=== PATIENT | male | born 1935 | race Caucasian/White ===

== ENCOUNTER 2017-10-25 20:35 | Observation (INO) | payer MEDICARE, BC, OTHER ==
--- OUTSIDE RECORDS SUMMARY | 2017-10-25 20:53 | XMS REPORT ---
:1935 External Reference #:[id number] Author Organization [facility] Address [address] [place] [address] [place] [address] Phone [phone] Care Team Providers Name Role Phone Perez Santoyo MD Primary Care Physician Unavailable Payers Type Date Identification Numbers Payment Provider Subscriber Medicare Primary Policy Number: [id number] Medicare Perez Mcarthur PayID: [id number] [address] [place] [address] Medigap Part B Policy Number: [id number] [facility] Perez Pidlaureano PayID: [id number] [address] [place] [address] Problems Date Description Provider Status Onset: 06/09/2016 Spinal stenosis of lumbar region Yoshi Casillas M.D. Active Onset: 01/14/2013 Chronic ischemic heart disease Wu Cummings M.D. 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 [facility] Cigarette Use quit 33 years ago smoke pipe in the past, quit in 1960s ETOH Use Drinks 2 Alcoholic Beverages 1-2 Per Week Recreational Drug Use Denies Drug Use Smoking Patient is a former smoker quit smoking 20 years ago Daily Caffeine Consumes on average 2 cups of regular coffee per day Daily Caffeine Consumes on average 2 cups of hot tea per day Exercise Type/Frequency Exercises regularly Exercise Type/Frequency Walks daily Exercise Type/Frequency PT For legs 09/28/17 Allergies, Adverse Reactions, Alerts Date Description Reaction Status Severity Comments 05/16/2015 Statins active Muscle pain/ Fatigue 01/12/2013 NKDA inactive Medications Medication Date Status Form Strength Qnty SIG Indications Ordering Provider Nitrostat 01/14 Active Tablets 0.4mg 25tab as needed Sub s for chest D. Brand, pain M.D. Lisinopril Active Tablets 20mg 90tab 1 po bid Silcoff s MD Perez Tamsulosin HCL Active Capsules 0.4mg 30cap 1 po qd Silcoff, s MD Perez Aspirin Active Tablets 325mg 1 po qd Silco MD Perez Colace Active Capsules 100mg 60cap as needed Unknown / s Finasteride Active Tablets 5mg 90tab 1 po qd / s Lyrica Active Capsules 25mg 1 by mouth Unknown / in Am and 2 at hs Bacitracin Zinc Active Ointment 500Unit/G apply once Unknown /0000 M a day to affected area Tramadol HCL Active Tablets 50mg 1-2 Unknown /0000 tablets every 6 hours as needed Acetaminophen-Codei Active Tablets 300-30mg one tablet Unknown ne #3 0000 as needed orally for pain every 4-6 hours Hydrochlorothiazide Active Capsules 12.5mg 1 Thursday Unknown /0000 and Vitamin D3 Active Tablets 2000Unit 1 by mouth Unknown / every day Cortosone 10 Active Cream Apply Unknown topically one time per day and as needed Metaxalone 05/16 Hx Tablets 800mg 14tab take 1 s tablet 3 D. Brand, - times a M.D. 07/07 day needed Hydrochlorothiazide Hx Tablets 25mg 90tab 1/2 tablet Silco s Ace Davalos MD 07/07 Miralax Hx prn - 04/20 Vitamin D3 Hx Tablets 1000 daily Unknown - 04/20 Cinnamon Hx Capsules 500mg 1 po qd - 04/26 Medications Administered in Office Medication Date Status Form Strength Qnty SIG Indications Ordering Provider Technetium TC Administered Injection Wu Cummings M.D. Tetrofosmin, Per Unit Dose Up To 40 Millicuries Vital Signs Date Vital Result Comment 09/28/2017 Height 72 inches 6'0" Weight 207.00 lb Heart Rate 64 /min BP Systolic Sitting 102 mmHg Rue large cuff BP Diastolic Sitting 62 mmHg Rue large cuff Respiratory Rate 14 /min O2 % BldC Oximetry 95 % On Ra BMI (Body Mass Index) 28.1 kg/m2 Neck Circumference in inches 17 05/01/2017 Height 72 inches 6'0" Weight 205.00 lb No shoes Heart Rate 60 /min BP Systolic Sitting 126 mmHg Rue lrg cuff BP Diastolic Sitting 80 mmHg Rue lrg cuff BP Systolic Standing 130 mmHg Rue lrg cuff BP Diastolic Standing 78 mmHg Rue lrg cuff Respiratory Rate 16 /min BMI (Body Mass Index) 27.8 kg/m2 Ejection Fraction 40% 04/08/2005-echo 08/04/2016 Height 74 inches 6'2" Weight 218.00 lb Heart Rate 78 /min BP Systolic Sitting 110 mmHg BP Diastolic Sitting 70 mmHg Pain Level 1 BMI (Body Mass Index) 28.0 kg/m2 07/07/2016 Height 74 inches 6'2" Weight 218.00 lb Heart Rate 62 /min BP Systolic Sitting 138 mmHg BP Diastolic Sitting 76 mmHg Pain Level 3 BMI (Body Mass Index) 28.0 kg/m2 06/09/2016 Height 74 inches 6'2" Weight 218.00 lb Heart Rate 62 /min BP Systolic 104 mmHg BP Diastolic 60 mmHg Pain Level 2 BMI (Body Mass Index) 28.0 kg/m2 05/09/2016 Height 74 inches 6'2" Weight 216.00 lb with shoes Heart Rate 66 /min BP Systolic Sitting 108 mmHg Ra reg cuff BP Diastolic Sitting 60 mmHg Ra reg cuff BP Systolic Standing 102 mmHg Ra reg cuff BP Diastolic Standing 68 mmHg Ra reg cuff BMI (Body Mass Index) 27.7 kg/m2 Ejection Fraction 35% - 40% echo 04/08/05 05/16/2015 Height 74 inches 6'2" Weight 212.00 lb no shoes Heart Rate 64 /min BP Systolic Sitting 102 mmHg Ra reg cuff BP Diastolic Sitting 62 mmHg Ra reg cuff BP Systolic Standing 108 mmHg Ra reg cuff BP Diastolic Standing 68 mmHg Ra reg cuff BMI (Body Mass Index) 27.2 kg/m2 Ejection Fraction 40% 04/08/05 04/27/2014 Height 74 inches 6'2" Weight 217.00 lb with shoes Heart Rate 64 /min BP Systolic Sitting 140 mmHg LA, reg cuff BP Diastolic Sitting 86 mmHg LA, reg cuff BP Systolic Standing 132 mmHg LA BP Diastolic Standing 84 mmHg LA Respiratory Rate 16 /min BMI (Body Mass Index) 27.9 kg/m2 01/14/2013 Height 74 inches 6'2" Weight 211.00 lb Heart Rate 76 /min BP Systolic Sitting 94 mmHg Ra reg cuff BP Diastolic Sitting 62 mmHg Ra reg cuff BP Systolic Standing 100 mmHg Ra BP Diastolic Standing 68 mmHg Ra Respiratory Rate 18 /min BMI (Body Mass Index) 27.1 kg/m2 Results Description No Information Procedures Date CPT Code Description Status 05/01/2017 35156 EKG Tracing & Interpretation Completed 05/09/2016 21251 EKG Tracing & Interpretation Completed 05/16/2015 79205 EKG Tracing & Interpretation Completed 04/27/2014 06195 EKG Tracing & Interpretation Completed 01/14/2013 04614 EKG Tracing & Interpretation Completed 12/15/2012 00911 Stress Test Completed 12/15/2012 93049 Myocardial Perfusion Imaging Tomographic (Spect) Completed Multiple Studies Encounters Type Date Location Provider CPT E/M Dx Office Visit 09/28/2017 [facility] [place] Emilia [place]én[place] [address] G47.9 10:00a [facility] R53.83 Office Visit 05/01/2017 11:30a [facility] Gurpreet Cummings 74187 I25.810 [facility] Leon R94.31 Office Visit 08/04/2016 9:45a [facility] Ambar Ortega PA-C 20026 M48.06 Of [facility] Office Visit 07/07/2016 10:40a [facility] Yoshi Casillas 09597 M48.06 Of [facility] Office Visit 06/09/2016 10:15a [facility] Yoshi Casillas 35029 M48.06 Of [facility] Office Visit 05/09/2016 11:15a [facility] Gurpreet Cummings 37524 I25.810 [facility] Leon R94.31 Office Visit 05/16/2015 10:30a [facility] Madison Cummings, 58389 I25.810 [facility] Leon R06.02 R94.31 Office Visit 04/27/2014 10:30a [facility] Wu JayePepe Cummings, 21037 414.02 Brianne Leon 414.9 Office Visit 01/14/2013 10:30a [facility] Wu JayePepe Cummings, 59757 414.02 Brianne Leon 414.9 Plan of Care Future Appointment(s):11/18/2017 2:30 pm - Melodie Chu DNP, RN, JOURNEYMAN MACHINIST-BC at [facility]09/28/2017 - Emilia Méndez MDG47.9 Sleep disorder, unspecifiedNew Orders:Home Sleep TestingFollow up:3 weeks [id number] Other fatigue
--- OUTSIDE RECORDS SUMMARY | 2017-10-25 20:53 | XMS REPORT ---
:1935 External Reference #:[id number] Author Organization [employer] [facility] Address [address] [place] [address] Phone [phone] Care Team Providers Name Role Phone Perez Santoyo M.D. Primary Care Physician Unavailable Payers Type Date Identification Numbers Payment Provider Subscriber Medicare Primary Effective: Policy Number: Medicare - NGS Perez Mcarthur 2002 [id number] PayID: [id number] [address] [place] [address] Commercial Policy Number: [id number] [place] Plan Perez Mcarthur PayID: [id number] [address] [place] [address] Problems Date Description Provider Status Onset: Dyspnea on exertion Active Onset: Large prostate Active Onset: Type 2 diabetes mellitus Active Note: 2001 Onset: Essential hypertension Active Onset: Tremor Active Note: familial Onset: Arthritis Active Onset: Diabetic neuropathy Active Onset: Foot-drop Active Note: left Onset: 10/12/2015 Nuclear senile cataract Sonya James O.D. 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 Active Onset: Concussion injury of brain Active Note: 09/2017 Onset: 10/13/2017 Presbyopia Riaz Man M.D. Active Onset: 10/13/2017 Hypermetropia Riaz Man M.D. Active Onset: 10/13/2017 Vitreous degeneration Riaz Man M.D. Active Family History Date Family Member(s) Problem(s) Comments Father No Current Problems Mother Glaucoma Mother Diabetes First Son Diabetes First Brother Glaucoma First Brother Diabetes Grandfather Cataract Grandmother Cataract Uncle Diabetes Social History Type Date Description Comments Marital Status Legal Status: Occupation [employer] Work Status Retired ETOH Use Occasionally consumes alcohol Recreational Drug Use Denies Drug Use Smoking Patient is a former smoker Daily Caffeine Consumes on average 2 cups of regular coffee per day Allergies, Adverse Reactions, Alerts Date Description Reaction Status Severity Comments 10/02/2015 NKDA active Medications Medication Date Status Form Strength Qnty SIG Indications Ordering Provider Lyrica / Active Capsules 25mg Silcoff, 0000 Carolyn Todd Lisinopril / Active Tablets 20mg Silcoff, 0000 Carolyn Todd Tamsulosin HCL / Active Capsules 0.4mg Hussieni, 0000 Evan Leon Finasteride / Active Tablets 5mg Unknown 0000 Hydrochlorothiazide / Active Tablets 12.5mg 2 times Silcoff, 0000 a week Carolyn Todd Aspirin / Active Tablets 325mg Unknown [address] Ibuprofen / Active Tablets 200mg as Unknown 0000 needed Tramadol HCL ER / Active Caps ER 100mg Unknown 0000 24HR Nitrostat / Active Tablets 0.4mg Unknown 0000 Sub Tylenol With Codeine / Active Tablets 300-30mg Unknown #3 0000 Colace 2-In-1 / Active Tablets 8.6-50mg Unknown 0000 Vitamin D / Hx Capsules 400Unit Unknown (Cholecalciferol) 0000 - 2017 Results Description No Information Procedures Date CPT Code Description Status 12/04/2016 39911 Scanning Computerized Ophthalmic Diagnostic Imag Completed Posterior Seg On 12/04/2016 32260 Visual Field Exam Extended Completed 12/04/2016 04516 Est Patient Comprehensive Exam Completed 05/29/2016 30354 Est Patient Intermediate Exam Completed 03/20/2016 17717 Visual Field Exam Extended Completed 03/20/2016 16509 Est Patient Intermediate Exam Completed 11/15/2015 00555 Visual Field Exam Extended Completed 11/15/2015 35395 Est Patient Intermediate Exam Completed 10/12/2015 05012 Scanning Computerized Ophthalmic Diagnostic Imag Completed Posterior Seg On 10/12/2015 16354 Determination Of Refractive State Completed 10/12/2015 64350 Est Patient Comprehensive Exam Completed 10/12/2015 77871 Pachymetry Completed 03/02/2014 28108 Est Patient Comprehensive Exam Completed 12/09/2011 75734 Est Patient Comprehensive Exam Completed Plan of Care 10/13/2017 - Riaz Man M.D.H25.13 Age-related nuclear cataract, bilateralComments:Smoking can increase the risk of developing or worsening any eye related disease, as well as affect your overall health. If you are a smoker , we strongly recommend that you quit.If you are not a smoker, we strongly recommend that you do not start. You have been diagnosed with cataracts. They are limiting your vision, and I am unable to improve you with new glasses. Our next step is to schedule Cataract surgery and all necessary appointments, which Wilmer will do for you. We recommend that you write down any questions you may have and bring them to your preoperative appointment so that Dr. Man can answer them for you. If you have any questions or concerns, you can reach Magy Reagan at .Follow up:For preop exam before surgery.H43.813 Vitreous degeneration, bilateralComments:You have a Posterior Vitreous Detachment. If you have any changes in your floaters or flashing lights, please contact this office.H52.03 Hypermetropia, bilateralComments:You have Hyperopia, or far sightedness.H52.4 PresbyopiaComments:You have presbyopia. This is when the lens in your eye loses the ability to change focus, and happens as we age. A pair of reading glasses will help you see up close.H40.023 Open angle with borderline findings, high risk, bilateralComments:Dr. Man is considering you a Glaucoma suspect. This means the eye pressure in your eyes are higher than average, your optic nerve appearance is suspicious, or you have strong risk factors; but you have not been diagnosed with Glaucoma. Follow up appointments are very important to keep.
[2017-10-25 21:14] LABS: ABS Basophils 0 10^3/ul (0-0.2); ABS Eosinophils 0 10^3/ul (0-0.6); ABS Lymphocytes 0.5 10^3/ul (1.0-4.8); ABS Monocytes 0.4 10^3/ul (0-0.8); ABS Nucleated RBC 0 10^3/ul; Eosinophil % 0.3 % (0-6); Hematocrit 39 % (42-52); Hemoglobin 13.6 g/dl (14.0-18.0); Lymphocyte % 13.5 % (25-47); Mean Corpuscular HGB Conc 35 g/dl (31-36); Mean Corpuscular Hemoglobin 32 pg (27-31); Mean Corpuscular Volume 92 fL (80-94); Mean Platelet Volume 7.9 um3 (7.4-10.4); Nucleated Red Blood Cells % 0; Platelet Count 111 10^3/ul (150-450); Red Blood Count 4.22 10^6/ul (4.00-5.40); Red Cell Distribution Width 13 % (10.5-15)
[2017-10-25] MEDS ORDERED: Acetaminophen TAB* 325 MG PO ONE (21:14)
[2017-10-25] MEDS ORDERED: NS 0.9% 1000 ML* 2,000 ML IV ONE (21:14)
[2017-10-25] MEDS ORDERED: Vancomycin(*) 1,000 MG in NS 0.9% 250 ML* 250 ML IVPB ONE (21:15)
[2017-10-25] MEDS ORDERED: Piperacillin/Tazobac ADVAN(*) 3.375 GM in NS 0.9% 100 ML* 100 ML IVPB ONE ×2 (21:15→21:43)
[2017-10-25 21:22] LABS: INR 1.1 (0.77-1.02)
[2017-10-25 21:30] LABS: EGFR Non-African American 84.4 (>60)
[2017-10-25] MEDS ORDERED: Azithromycin IV(*) 500 MG in NS 0.9% 250 ML* 250 ML IVPB SCH (22:00)
--- NOTE | 2017-10-25 22:36 | ED ---
Scott Mace Tariq, scribed for Barbara Awad MD on 10/25/17 at 2114 . HPI Cardiac - HPI Summary HPI Summary: A 82 y/o male presents to ED c/o two episodes of high blood pressure. According to the patient, he had high blood pressure this morning and after dinner. Additional symptoms that started yesterday include headache, ear ache, blurry vision, SOB, chills and diarrhea. Patient denies cough. He noted that he does have issues with urination, but it has not been present for past week. As per , she found a red spot on the left back/side. She believes it is a tick. Patient noted that it does not itch or painful, however it is tender. Additionally, she stated he has been febrile. [place] Sent by PCP for further evaluation. - History of Current Complaint Chief Complaint: EDFever Stated Complaint: HIGH BP Time Seen by Provider: 10/25/17 20:58 Hx Obtained From: Patient Onset/Duration: Started Hours Ago - High Blood Pressure, 2 episodes. Timing: Intermittent Current Severity: None Pain Intensity: 0 Pain Scale Used: 0-10 Numeric Character: Other: - High Blood Pressure Aggravating Factor(s): Nothing Alleviating Factor(s): Nothing Associated Signs and Symptoms: Positive: Vision Changes, Headaches, Shortness of Breath, Fever, Chills, Other: - Vision changes, red spot on back/side, diarrhea.. Negative: Cough - Allergy/Home Medications Allergies/Adverse Reactions: Allergies Allergy/AdvReac Type Severity Reaction Status Date / Time No Known Allergies Allergy Verified 10/12/17 10:16 PMH/Surg Hx/FS Hx/Imm Hx Endocrine/Hematology History: Reports: Hx Diabetes - CONTROL WITH DIET Cardiovascular History: Reports: Hx Coronary Artery Disease, Hx Hypertension, Hx Syncope Denies: Hx Pacemaker/ICD History: Reports: Other Problems/Disorders - neurogenic bladder Denies: Hx Renal Disease Musculoskeletal History: Reports: Hx Back Problems - spinal stenosis Sensory History: Denies: Hx Hearing Aid Psychiatric History: Denies: Hx Panic Disorder - Surgical History Surgery Procedure, Year, and Place: CARDIAC HEART STENTS 2004. TRIPLE BYPASS 2006 Infectious Disease History: No Infectious Disease History: Denies: Traveled Outside the [place] in Last 30 Days - Family History Known Family History: Positive: Diabetes, Other - [place] - Social History Alcohol Use: None Alcohol Amount: 1-2 drinks per week Substance Use Type: Reports: None Smoking Status (MU): Former Smoker Review of Systems Positive: Fever, Chills Positive: Blurred Vision Positive: Ear Ache Positive: Other - POSITIVE: Two episodes of high blood pressure. Positive: Shortness Of Breath. Negative: Cough Positive: Diarrhea Positive: Headache All Other Systems Reviewed And Are Negative: Yes Physical Exam - Summary Physical Exam Summary: VITAL SIGNS: Reviewed. GENERAL: Patient is a well-developed and nourished MALE who is lying comfortable in the stretcher. Patient is not in any acute respiratory distress. HEAD AND FACE: No signs of trauma. No ecchymosis, hematomas or skull depressions. No sinus tenderness. EYES: PERRLA, EOMI x 2, No injected conjunctiva, no nystagmus. EARS: Hearing grossly intact. Ear canals and tympanic membranes are within normal limits. MOUTH: Oropharynx within normal limits. NECK: Supple, trachea is midline, no adenopathy, no JVD, no carotid bruit, no c- spine tenderness, neck with full ROM. CHEST: Symmetric, no tenderness at palpation LUNGS: Clear to auscultation bilaterally. No wheezing or crackles. CVS: Regular rate and rhythm, S1 and S2 present, no murmurs or gallops appreciated. ABDOMEN: Soft, non-tender. No signs of distention. No rebound no guarding, and no masses palpated. Bowel sounds are normal. EXTREMITIES: FROM in all major joints, no edema, no cyanosis or clubbing. NEURO: Alert and oriented x 3. No acute neurological deficits. Speech is normal and follows commands. SKIN: Red oval, 3 inch by 2 inch, on left lateral in between chest and abdomen. Macular rash. Triage Information Reviewed: Yes Vital Signs On Initial Exam: Initial Vitals Temp Pulse Resp BP Pulse Ox 101.1 F 85 20 161/78 94 10/25/17 20:37 10/25/17 20:37 10/25/17 20:37 10/25/17 20:37 10/25/17 20:37 Vital Signs Reviewed: Yes Diagnostics - Vital Signs Vital Signs Temp Pulse Resp BP Pulse Ox 10/25/17 20:37 101.1 F 85 20 161/78 94 - Laboratory Result Diagrams: 10/25/17 21:04 10/25/17 21:04 Lab Statement: Any lab studies that have been ordered have been reviewed, and results considered in the medical decision making process. - Radiology CXR Radiology Interpretation Completed By: ED Physician - Right lower lobe infiltrate. Pending official report. - EKG 2116 Cardiac Rate: NL - 76 BPM EKG Rhythm: Sinus Rhythm ST Segment: Non-Specific EKG Interpretation: Normal axis. Normal interval. Q-wave in V1 and V2. Re-Evaluation - Re-Evaluation First Eval Re-Evaluation Time: 21:37 Comment: DISCUSSED DISCHARGE WITH PATIENT. Disposition - Course Course Of Treatment: A 82 y/o male presents to ED c/o two episodes of high blood pressure. According to the patient, he had high blood pressure this morning and after dinner. Additional symptoms that started yesterday include headache, ear ache, blurry vision, SOB, chills and diarrhea. Patient denies cough. As per , she found a red spot on the left back/side. She believes it is a tick. Patient noted that it does not itch or painful, however it is tender. Additionally, she stated he has been febrile. A CXR reveal right lower lobe infiltrate. An EKG revealed a rate of 76 BPM, normal rhythm, non-specific ST, normal axis. Normal interval. Q-wave in V1 and V2. In the ED course, patient was given IV fluids, Tylenol, Vancomycin and Tazobactum. We discussed patient care with Dr. Hinojosa and he accepts patient for admission. Patient will be admitted with a diagnosis of pneumonia. Patient is agreeable with this plan. - Diagnoses Provider Diagnoses: Pneumonia - Physician Notifications Discussed Care Of Patient With: Josue Hinojosa Time Discussed With Above Provider: 21:45 Instructed by Provider To: Other - DR. HINOJOSA ACCEPTS PATIENT FOR ADMISSION. Discharge - Sign-Out/Discharge Documenting (check all that apply): Discharge/Admit/Transfer - ADMIT - Discharge Plan Condition: Stable Disposition: ADMITTED TO [facility] Referrals: Perez Santoyo MD [Primary Care Provider] - The documentation as recorded by the Scott freire Tariq accurately reflects the service I personally performed and the decisions made by me, Barbara Awad MD.
[2017-10-25] MEDS ORDERED: Azithromycin IV* 500 MG ADVAN VIAL/BAG IVPB ONE (23:45)
--- NOTE | 2017-10-25 23:48 | HP ---
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 He denies chest pain, SOB, cough, congestion , or other issues. Today he continued to have these symptoms and his significant other had him check his blood pressure finding it to be 190/80s. This caused them concern enough to present for evaluation which found a RLL infiltrate on CXR, but negative SIRS screen. 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 CAD/IA/stents/3vCABG pericardial effusion HTN essential tremor Ambulatory Orders Finasteride TAB* [Proscar TAB*] 5 mg PO DAILY 09/15/12 Lisinopril TAB* [Prinivil TAB*] 10 mg PO BID 09/15/12 Nitroglycerin [Nitrostat] 0.4 mg SL SEE INSTRUCTIONS PRN 09/15/12 Tamsulosin CAP* [Flomax CAP*] 0.4 mg PO DAILY 09/15/12 Aspirin TAB* [Aspirin 325 MG TAB*] 325 mg PO DAILY 06/17/16 Pregabalin CAP(*) [Lyrica CAP(*)] 1 cap PO .SI IN AM,2 AT HS 06/17/16 hydroCHLOROthiazide [Microzide-] 25 mg PO MOTH 10/13/16 Hydrochlorothiazide TAB* [Hydrodiuril TAB*] 25 mg PO WEEKLY 10/25/17 Allergies No Known Allergies Allergy (Verified 10/12/17 10:16) PSurgHx cardiac stents 3vCABG TURP tonsillectomy planned OU cataract extraction 11/2017 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, minimal alcohol, no recreational drugs; , lives with a female significant other; full code status FamHx: reviewed & non-contributory ROS: as above, otherwise reviewed and all were negative vitals: Vital Signs Temp 38.4 C 10/25/17 20:37 Pulse 64 10/26/17 00:24 Resp 17 10/26/17 00:24 BP 118/67 10/26/17 00:24 Pulse Ox 95 10/26/17 00:24 Intake & Output 10/25/17 10/25/17 10/26/17 11:59 23:59 11:59 Weight 95.254 kg Constitutional: NAD, normally developed, well-nourished elderly white male HEENM: atraumatic; sclera/conjunctiva: anicteric/clear; hearing: clinically intact; oropharynx: clear, mucosa moist Neck: soft tissue: no nuchal rigidity; thyroid: normal Pulmonary: diminished bilaterally w/o crackle or wheeze, fair aeration, no accessory muscle use CV: RR/RR, normal S1S2, no carotid bruit, no jugular venous distention, 2+ B DP/ PT, no edema Abdominal: soft, non-distended, non-tender, no rebound/guarding/rigidity, normoactive bowel sounds, no hepatosplenomegaly or masses, no costovertebral angle tenderness Musculoskeletal: general: grossly intact, non-tender Integumental: L flank non-blanching angry ~12x8cm erythematous patch w/o targetoid appearance Psychiatric orientation: AA&O to PPS affect: calm mood: pleasant eye contact: good content: reliable responses: timely insight: fair to good Testing: Lab Results 10/25/17 10/25/17 10/25/17 Range/Units 21:04 21:04 21:04 WBC 4.0 (3.5-10.8) 10^3/ul RBC 4.22 (4.00-5.40) 10^6/ul Hgb 13.6 L (14.0-18.0) g/dl Hct 39 L (42-52) % MCV 92 (80-94) fL MCH 32 H (27-31) pg MCHC 35 (31-36) g/dl RDW 13 (10.5-15) % Plt Count 111 L (150-450) 10^3/ul MPV 7.9 (7.4-10.4) um3 Neut % (Auto) 74.3 (38-83) % Lymph % (Auto) 13.5 L (25-47) % Mccracken % (Auto) 11.1 H (0-7) % Eos % (Auto) 0.3 (0-6) % Baso % (Auto) 0.8 (0-2) % Absolute Neuts (auto) 3.0 (1.5-7.7) 10^3/ul Absolute Lymphs (auto) 0.5 L (1.0-4.8) 10^3/ul Absolute Monos (auto) 0.4 (0-0.8) 10^3/ul Absolute Eos (auto) 0 (0-0.6) 10^3/ul Absolute Basos (auto) 0 (0-0.2) 10^3/ul Absolute Nucleated RBC 0 10^3/ul Nucleated RBC % 0 INR (Anticoag Therapy) 1.10 H (0.77-1.02) APTT 23.5 L (26.0-36.3) seconds Sodium 131 L (135-145) mmol/L Potassium 4.3 (3.5-5.0) mmol/L Chloride 99 L (101-111) mmol/L Carbon Dioxide 26 (22-32) mmol/L Anion Gap 6 (2-11) mmol/L BUN 21 (6-24) mg/dL Creatinine 0.87 (0.67-1.17) mg/dL Est GFR ( Amer) 102.2 (>60) Est GFR (Non-Af Amer) 84.4 (>60) BUN/Creatinine Ratio 24.1 H (8-20) Glucose 123 H (70-100) mg/dL Lactic Acid (0.5-2.0) mmol/L Calcium 8.3 L (8.6-10.3) mg/dL Total Bilirubin 0.80 (0.2-1.0) mg/dL AST 51 H (13-39) U/L ALT 42 (7-52) U/L Alkaline Phosphatase 97 (34-104) U/L Troponin I 0.02 (<0.04) ng/mL C-Reactive Protein 81.20 H (<8.01) mg/L B-Natriuretic Peptide ( - 100) pg/mL Total Protein 6.5 (6.4-8.9) g/dL Albumin 3.6 (3.2-5.2) g/dL Globulin 2.9 (2-4) g/dL Albumin/Globulin Ratio 1.2 (1-3) 10/25/17 10/25/17 Range/Units 21:04 21:04 WBC (3.5-10.8) 10^3/ul RBC (4.00-5.40) 10^6/ul Hgb (14.0-18.0) g/dl Hct (42-52) % MCV (80-94) fL MCH (27-31) pg MCHC (31-36) g/dl RDW (10.5-15) % Plt Count (150-450) 10^3/ul MPV (7.4-10.4) um3 Neut % (Auto) (38-83) % Lymph % (Auto) (25-47) % Mccracken % (Auto) (0-7) % Eos % (Auto) (0-6) % Baso % (Auto) (0-2) % Absolute Neuts (auto) (1.5-7.7) 10^3/ul Absolute Lymphs (auto) (1.0-4.8) 10^3/ul Absolute Monos (auto) (0-0.8) 10^3/ul Absolute Eos (auto) (0-0.6) 10^3/ul Absolute Basos (auto) (0-0.2) 10^3/ul Absolute Nucleated RBC 10^3/ul Nucleated RBC % INR (Anticoag Therapy) (0.77-1.02) APTT (26.0-36.3) seconds Sodium (135-145) mmol/L Potassium (3.5-5.0) mmol/L Chloride (101-111) mmol/L Carbon Dioxide (22-32) mmol/L Anion Gap (2-11) mmol/L BUN (6-24) mg/dL Creatinine (0.67-1.17) mg/dL Est GFR ( Amer) (>60) Est GFR (Non-Af Amer) (>60) BUN/Creatinine Ratio (8-20) Glucose (70-100) mg/dL Lactic Acid 0.6 (0.5-2.0) mmol/L Calcium (8.6-10.3) mg/dL Total Bilirubin (0.2-1.0) mg/dL AST (13-39) U/L ALT (7-52) U/L Alkaline Phosphatase (34-104) U/L Troponin I (<0.04) ng/mL C-Reactive Protein (<8.01) mg/L B-Natriuretic Peptide 103 H ( - 100) pg/mL Total Protein (6.4-8.9) g/dL Albumin (3.2-5.2) g/dL Globulin (2-4) g/dL Albumin/Globulin Ratio (1-3) ECG, personally reviewed: NSR rate 76, no ischemia CXR, personally reviewed: RLL infiltrate Impression: 82M presenting with RLL CAP DIAGNOSIS & PLAN Primary RLL CAP : given IV vancomycin, azithromycin, & piperacillin/tazobactam in ED, will continue with azithromycin & ceftriaxone : IVFs : blood & sputum CXs : supplemental oxygen : supportive care L flank non-blanching macular skin lesion : uncertain cause : consider dermatopathology consult in AM : tick-borne labs sent from ED : doxycycline 100mg PO BID Secondary 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
[2017-10-26] MEDS ORDERED: Albuterol 2.5 MG/3 ML NEB.SOL* (0.083%) INH PRN (00:22)
[2017-10-26] MEDS ORDERED: Melatonin 3 MG TAB PO PRN (00:22)
[2017-10-26] MEDS ORDERED: Acetaminophen TAB* 325 MG PO PRN (00:22)
[2017-10-26] MEDS: NS 0.9% 1000 ML* 1,000 ML IV SCH (01:33)
[2017-10-26] MEDS: Pregabalin CAP(*) 50 MG PO SCH ×2 (02:06→20:41)
[2017-10-26 03:08] LABS: Urine Appearance Clear; Urine Blood 1+ (Negative); Urine Color Straw; Urine Ketones Negative (Negative); Urine Protein Negative (Negative); Urine Red Blood Cell Trace(0-2/hpf) (Absent); Urine Specific Gravity 1.003 (1.010-1.030); Urine Urobilinogen Negative (Negative); Urine White Blood Cell Absent (Absent)
[2017-10-26] MEDS: cefTRIAXone VIAL(*) 1,000 MG in NS 0.9% 50 ML* 50 ML IVPB SCH (05:25)
[2017-10-26] MEDS: Heparin VIAL(*) 5000 UNITS/ML VIAL (FIVE THOUSAND) SUBCUT SCH ×3 (05:27→21:46)
[2017-10-26] MEDS: Omeprazole CAP* 20 MG PO SCH (05:29)
[2017-10-26 06:06] LABS: EGFR Non-African American 87.9 (>60)
[2017-10-26 06:10] LABS: Hematocrit 43 % (42-52); Hemoglobin 14.5 g/dl (14.0-18.0); Mean Corpuscular HGB Conc 34 g/dl (31-36); Mean Corpuscular Hemoglobin 32 pg (27-31); Mean Corpuscular Volume 94 fL (80-94); Red Blood Count 4.56 10^6/ul (4.00-5.40); Red Cell Distribution Width 13 % (10.5-15)
--- NOTE | 2017-10-26 07:32 | RAD ---
INDICATION: Fever. COMPARISON: Comparison is made with a prior chest x-ray study from April 01, 2005. TECHNIQUE: A portable view of the chest was obtained. FINDINGS: The patient appears to be status post coronary artery bypass surgery. Note is made of multiple sternal sutures and mediastinal clips. The heart is within normal limits in size. There is a small infiltrate at the right lung base and trace bilateral pleural effusions. IMPRESSION: SMALL RIGHT BASILAR INFILTRATE AND TRACE BILATERAL PLEURAL EFFUSIONS. NO DISCREPANCY
[2017-10-26] MEDS: Insulin LISPRO* 1 UNITS UNIT SUBCUT SCH ×4 (07:44→20:56)
[2017-10-26] MEDS: Tamsulosin CAP* 0.4 MG PO SCH (07:45)
[2017-10-26] MEDS: Docusate CAP* 100 MG PO SCH ×2 (07:45→20:41)
[2017-10-26] MEDS: Lisinopril TAB* 10 MG PO SCH ×2 (07:45→20:41)
[2017-10-26] MEDS: DOXYcycline CAP(*) 100 MG PO SCH ×2 (07:45→20:41)
[2017-10-26] MEDS: Aspirin TAB* 325 MG PO SCH (07:45)
[2017-10-26] MEDS: Finasteride TAB* 5 MG PO SCH (07:46)
[2017-10-26] MEDS: Pregabalin CAP(*) 25 MG PO SCH (07:46)
--- NOTE | 2017-10-26 16:26 | PN ---
Subjective Date of Service: 10/26/17 Interval History: . Interviewed and examined patient at bedside; Discussed case with Dr. Hinojosa; Reviewed previous notes and radiology results; Family History: Unchanged from Admission Social History: Unchanged from Admission Past Medical History: Unchanged from Admission Objective Active Medications: . Acetaminophen (Tylenol Tab*) 650 mg PO Q6H PRN PRN Reason: FEVER/PAIN Albuterol (Ventolin 2.5 Mg/3 Ml Neb.Mariangel*) 2.5 mg INH Q2H PRN PRN Reason: SOB/WHEEZING Aspirin (Aspirin Tab*) 325 mg PO DAILY [facility] Last Admin: 10/26/17 07:45 Dose: 325 mg Docusate Sodium (Colace Cap*) 200 mg PO BID [facility] Last Admin: 10/26/17 07:45 Dose: 200 mg Doxycycline Hyclate (Vibramycin Cap(*)) 100 mg PO BID [facility] Last Admin: 10/26/17 07:45 Dose: 100 mg Finasteride (Proscar Tab*) 5 mg PO DAILY [facility] Last Admin: 10/26/17 07:46 Dose: 5 mg Heparin Sodium (Porcine) (Heparin Vial(*)) 5,000 units SUBCUT Q8HR [facility] Last Admin: 10/26/17 14:17 Dose: 5,000 units Sodium Chloride (Ns 0.9% 1000 Ml*) 1,000 mls @ 50 mls/hr IV PER RATE [facility] Last Admin: 10/26/17 01:33 Dose: 50 mls/hr Ceftriaxone Sodium 1,000 mg/ (Sodium Chloride) 50 mls @ 200 mls/hr IVPB Q24H [facility] Last Admin: 10/26/17 05:25 Dose: 200 mls/hr Azithromycin 500 mg/ Sodium (Chloride) 250 mls @ 250 mls/hr IVPB Q24H [facility] Insulin Human Lispro (Humalog*) 0 units SUBCUT ACHS [facility]; Protocol Last Admin: 10/26/17 12:34 Dose: Not Given Lisinopril (Prinivil Tab*) 10 mg PO BID [facility] Last Admin: 10/26/17 07:45 Dose: 10 mg Melatonin (Melatonin) 3 mg PO BEDTIME PRN; Protocol PRN Reason: Sleep Omeprazole (Prilosec Cap*) 20 mg PO DAILY@0600 [facility] Last Admin: 10/26/17 05:29 Dose: 20 mg Pregabalin (Lyrica Cap(*)) 25 mg PO QAM [facility] Last Admin: 10/26/17 07:46 Dose: 25 mg Pregabalin (Lyrica Cap(*)) 50 mg PO BEDTIME [facility] Last Admin: 10/26/17 02:06 Dose: 50 mg Tamsulosin HCl (Flomax Cap*) 0.4 mg PO DAILY [facility] Last Admin: 10/26/17 07:45 Dose: 0.4 mg . Vital Signs - 8 hr 10/26/17 10/26/17 10/26/17 10:43 12:16 15:16 Temperature 98.2 F 97.4 F Pulse Rate 74 66 Respiratory 25 24 18 Rate Blood Pressure 138/64 123/59 (mmHg) O2 Sat by Pulse 95 96 Oximetry Oxygen Devices in Use Now: None Appearance: elderly and frail. Short of breath with exertion in bed. Eyes: No Scleral Icterus Ears/Nose/Mouth/Throat: NL Teeth, Lips, Gums Neck: NL Appearance and Movements; NL JVP Respiratory: - - R Base rhonchi and poor air movement Cardiovascular: NL Sounds; No Murmurs; No JVD Abdominal: NL Sounds; No Tenderness; No Distention Lymphatic: No Cervical Adenopathy Extremities: No Edema Skin: No Rash or Ulcers Lines/Tubes/Other Access: Clean, Dry and Intact Peripheral IV Nutrition: Taking PO's Result Diagrams: 10/26/17 05:25 10/26/17 05:25 Assess/Plan/Problems-Billing . 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 CAD/CT/stents/3vCABG pericardial effusion HTN Essential tremor - Patient Problems (1) Streptococcus pneumoniae pneumonia Current Visit: Yes Status: Acute Priority: High Code(s): J13 - PNEUMONIA DUE TO STREPTOCOCCUS PNEUMONIAE Comment: - Ceftriaxone 1 g IV daily - Azithromycin 500 mg IV daily - Pulmonary toilet - Albuterol nebs Q4 prn shortness of breath - Supplemental oxygen - Incentive spirometry (2) S/P CABG x 3 Current Visit: Yes Status: Chronic Priority: High Code(s): Z95.1 - PRESENCE OF AORTOCORONARY BYPASS GRAFT (3) CAD (coronary artery disease) Current Visit: Yes Status: Chronic Priority: High Code(s): I25.10 - ATHSCL HEART DISEASE OF [place] CORONARY ARTERY W/O ANG PCTRS (4) Essential tremor Current Visit: Yes Status: Chronic Priority: High Code(s): G25.0 - ESSENTIAL TREMOR (5) Foot drop Current Visit: Yes Status: Chronic Priority: High Code(s): M21.379 - FOOT DROP, UNSPECIFIED FOOT Status and Disposition: . inpatient
[2017-10-26] MEDS ORDERED: Azithromycin IV(*) 500 MG in NS 0.9% 250 ML* 250 ML IVPB SCH (22:00)
[2017-10-27] MEDS: NS 0.9% 1000 ML* 1,000 ML IV SCH (02:48)
[2017-10-27] MEDS: cefTRIAXone VIAL(*) 1,000 MG in NS 0.9% 50 ML* 50 ML IVPB SCH (05:53)
[2017-10-27] MEDS: Heparin VIAL(*) 5000 UNITS/ML VIAL (FIVE THOUSAND) SUBCUT SCH (05:55)
[2017-10-27] MEDS: Omeprazole CAP* 20 MG PO SCH (05:55)
[2017-10-27] MEDS: Insulin LISPRO* 1 UNITS UNIT SUBCUT SCH ×2 (08:02→12:06)
[2017-10-27] MEDS: Pregabalin CAP(*) 25 MG PO SCH (08:10)
[2017-10-27] MEDS: DOXYcycline CAP(*) 100 MG PO SCH (08:10)
[2017-10-27] MEDS: Lisinopril TAB* 10 MG PO SCH (08:10)
[2017-10-27] MEDS: Finasteride TAB* 5 MG PO SCH (08:10)
[2017-10-27] MEDS: Tamsulosin CAP* 0.4 MG PO SCH (08:10)
[2017-10-27] MEDS: Aspirin TAB* 325 MG PO SCH (08:10)
[2017-10-27] MEDS: Docusate CAP* 100 MG PO SCH (08:11)
[2017-10-27 13:42] VITALS: BP 126/68
--- NOTE | 2017-10-28 06:17 | PN ---
Hospitalist Progress Note Date of Service: 10/27/17 . HOSPITALIST DISCHARGE NOTE: See dc instructions and summary by me. Patient stable for dc dc instructions reviewed with the patient at the bedside. DC patient home today.
--- NOTE | 2017-10-28 13:24 | DS ---
CC: Dr. Santoyo * DISCHARGE SUMMARY: DATE OF ADMISSION: 10/26/17 DATE OF DISCHARGE: 10/27/17 STATUS: Observation. PRIMARY CARE PROVIDER: Dr. Perez Santoyo, [facility]. PRINCIPAL DISCHARGE DIAGNOSIS: Community-acquired pneumonia - likely Streptococcal pneumoniae. SECONDARY DIAGNOSES: 1. Longstanding type 2 diabetes with neuropathy and left foot drop. 2. Coronary artery disease, status post myocardial infarction and stents and CABG x3 vessels. 3. Pericardial effusion. 4. Hypertension. 5. Essential tremor. DISCHARGE MEDICATIONS REGIMEN: New: 1. Ceftin 500 mg by mouth twice daily x 7 days. 2. Azithromycin 500 mg by mouth daily x 5 days. Continue: 1. Finasteride/Proscar 5 mg by mouth daily. 2. Lisinopril 10 mg by mouth twice daily. 3. Nitroglycerin 0.4 mg sublingually q.5 minutes up to 3 times p.r.n. chest pain. 4. Tamsulosin/Flomax 0.4 mg by mouth daily. 5. Aspirin 325 mg by mouth daily. 6. Pregabalin 25 mg in the morning and 50 mg at night. 7. Hydrochlorothiazide 25 mg by mouth weekly. HISTORY OF PRESENT ILLNESS AND HOSPITAL COURSE: Please see the H and P by Dr. Josue Hinojosa on 10/26/17. In brief, Mr. Mcarthur is a pleasant 82-year-old gentleman who had fevers and chills prior to admission for one day with blurred vision and facial flushing. The patient denied other issues, but developed a cough. The patient was somewhat hypertensive and came to the emergency room for evaluation. He was found to have right lower lobe infiltrate. He did not have a leukocytosis. His blood chemistries were significant for dehydration pattern with an elevated BUN to creatinine ratio and hyponatremia and hypochloremia and his CRP was elevated at 81.2. The patient was placed on IV ceftriaxone and IV azithromycin for presumed community-acquired pneumonia. Statistically, the most likely bacterial organism would be Strep pneumoniae. The patient received intravenous fluids overnight. Blood and sputum cultures were obtained, but no growth was observed. The patient was given supplemental oxygen and other supportive care. The patient did well overnight and expressed interest in going home on 10/27/17. The patient also has a left flank nonblanching macular lesion, tick-borne labs were sent from the emergency room and were negative for Lyme disease as well as Ehrlichia and anaplasma. The patient's urine studies were normal. The admitting physician recommended perhaps Dermatopathology consults who started the patient on doxycycline 100 mg by mouth twice daily. I will discuss this with Dr. Santoyo, but a Dermatopathology consult was not available during the hospitalization and the patient wished to go home rather than wait. With respect to the patient's diabetes, there were no significant abnormal blood sugars and his hemoglobin A1c was well controlled at 5.8 (considering likelihood of bacterial soft tissue infection). The patient's other medical problems were not active during the hospitalization. We will follow up with Dr. Santoyo later this week and further decisions will be based on his clinical course. At this point, he is certainly stable for the outpatient setting. He is ambulating independently in the hospital. Not requiring supplemental oxygen and feeling subjectively better than on admission. TIME SPENT: Total time taken to discharge Mr. Mcarthur was 40 minutes greater than half of that time spent going over the discharge instructions [id number] with the patient. CONDITION AT DISCHARGE: Stable. [id number]/[facility] #: [id number] [facility]
== END 2017-10-27 14:30 | disposition home or self-care (01) ==
LOC: ED 20:35 → MED 10-26 00:20 → INTOOBSV 10-26 00:20 → MED 10-26 20:09
PROVIDERS: ADMIT Hospitalist; ATTEND Internal Medicine
DX: J18.8 Other pneumonia, unspecified organism (principal); E13.40 Other specified diabetes mellitus with diabetic neuropathy, unspecified; M21.372 Foot drop, left foot; I25.10 Atherosclerotic heart disease of native coronary artery without angina pectoris; Z95.1 Presence of aortocoronary bypass graft; I25.2 Old myocardial infarction; I31.3 Pericardial effusion (noninflammatory); I10 Essential (primary) hypertension; G25.0 Essential tremor; Z79.82 Long term (current) use of aspirin; Z79.899 Other long term (current) drug therapy; Z95.5 Presence of coronary angioplasty implant and graft; Z87.891 Personal history of nicotine dependence
CPT/HCPCS: 36415; 71045; 80048; 80053; 81003; 81015; 83036; 83605; 83880; 84484; 85025; 85027; 85610; 85730; 86140; 86618; 86666; 87040; 87798; 87899; 93005; 96365; 96366; 99283; A9270-GY; G0378; J0456; J0696; J1644; J2543

== ENCOUNTER 2017-11-01 18:37 | Emergency (ER) | payer MEDICARE, BC, OTHER ==
--- NOTE | 2017-11-01 19:21 | ED ---
Neurological HPI - HPI Summary HPI Summary: A 82 y/o male JANEL presents to ED c/o extreme dizziness and being winded. According to the patient, he walked out to his mailbox which was about 100 ft. Once at the mailbox, he could not get back home because he felt dizzy and winded. Pt denies any CP or SOB, however has a mildly productive cough. He noted that he was admitted to the [facility] ED for 2 nights where he was diagnosed with pneumonia. He was started on antibiotics. He was already going to come in toay because of the cough, as it has gotten to the point where there is pain in his groin during cough. Oxygen given by EMS helped alleviate symptoms, however is not of oxygen at home. PMHx of HBP, prostate issues, triple bypass heart surgery ([facility]) and stents. SHx of previous smoker (quit 30 years ago). 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 No known allergies. - History of Current Complaint Chief Complaint: EDShortnessOfBreath Stated Complaint: DIFF BREATHING Time Seen by Provider: 11/01/17 18:55 Hx Obtained From: Patient Onset/Duration: Sudden Onset, Started hours ago, Still Present Timing: Constant Pain Intensity: 0 Pain Scale Used: 0-10 Numeric Character: Dizzy, Other: - Winded Aggravating: Nothing Alleviating: Other - Oxygen Associated Signs and Symptoms: Negative: Chest Pain, Shortness of Breath - Additional Pertinent History Primary Care Physician: [id number] - Allergy/Home Medications Allergies/Adverse Reactions: Allergies Allergy/AdvReac Type Severity Reaction Status Date / Time No Known Allergies Allergy Verified 10/12/17 10:16 PMH/Surg Hx/FS Hx/Imm Hx Endocrine/Hematology History: Reports: Hx Diabetes - CONTROL WITH DIET Cardiovascular History: Reports: Hx Coronary Artery Disease, Hx Hypertension, Hx Syncope, Other Cardiovascular Problems/Disorders - Triple Bypass Denies: Hx Pacemaker/ICD Respiratory History: Reports: Hx Pneumonia History: Reports: Hx Benign Prostatic Hyperplasia, Other Problems/ Disorders - neurogenic bladder Denies: Hx Renal Disease Musculoskeletal History: Reports: Hx Arthritis, Hx Back Problems - spinal stenosis Sensory History: Reports: Hx Cataracts, Hx Contacts or Glasses Denies: Hx Hearing Aid Opthamlomology History: Reports: Hx Cataracts, Hx Contacts or Glasses Psychiatric History: Reports: Hx Community Mental Health Tx - after 's Denies: Hx Panic Disorder - Surgical History Surgery Procedure, Year, and Place: CARDIAC HEART STENTS 2004. TRIPLE BYPASS 2005. Tonsillectomy Infectious Disease History: No Infectious Disease History: Denies: Traveled Outside the [place] in Last 30 Days - Family History Known Family History: Positive: Diabetes, Other - [place] - Social History Alcohol Use: Rare Alcohol Amount: 1-2 drinks per week Substance Use Type: Reports: None Smoking Status (MU): Former Smoker Review of Systems Negative: Fever Negative: Chest Pain Positive: Cough. Negative: Shortness Of Breath Neurological: Other - POSITIVE: Dizziness and winded All Other Systems Reviewed And Are Negative: Yes Physical Exam - Summary Physical Exam Summary: GENERAL: Patient is a well developed and nourished male who is lying comfortable in the stretcher. Patient is not in any acute respiratory distress. HEAD AND FACE: Normocephalic EYES: PERRLA, EOMI x 2. EARS: Hearing grossly intact. MOUTH: Oropharynx within normal limits. NECK: Supple, trachea is midline, no adenopathy, no JVD, no carotid bruit. CHEST: Symmetric, no tenderness at palpation LUNGS: Clear to auscultation bilaterally. No wheezing or crackles. CVS: Regular rate and rhythm, S1 and S2 present, no murmurs or gallops appreciated. ABDOMEN: Soft, non-tender. Bowel sounds are normal. No abdominal abnormal pulsations. EXTREMITIES: Full ROM in all major joints, no edema, no cyanosis or clubbing. NEURO: Alert and oriented x 3. No acute neurological deficits. Speech is normal and follows commands. SKIN: Dry and warm Triage Information Reviewed: Yes Vital Signs On Initial Exam: Initial Vitals Temp Pulse Resp BP Pulse Ox 98.3 F 78 22 176/110 97 11/01/17 18:42 11/01/17 18:42 11/01/17 18:42 11/01/17 18:42 11/01/17 18:42 Vital Signs Reviewed: Yes Diagnostics - Vital Signs Vital Signs Temp Pulse Resp BP Pulse Ox 11/01/17 18:45 74 24 97 11/01/17 18:42 98.3 F 78 22 176/110 97 - Laboratory Result Diagrams: 11/01/17 19:36 11/01/17 19:36 Lab Statement: Any lab studies that have been ordered have been reviewed, and results considered in the medical decision making process. - Radiology CXR Radiology Interpretation Completed By: Radiologist - SMALL PLEURAL EFFUSIONS AND QUESTIONABLE PATCHY INFILTRATE AT THE RIGHT LUNG BASE. ED physician reviewed this radiology report. - EKG 1924 Cardiac Rate: NL - 66 BPM EKG Rhythm: Sinus Rhythm EKG Interpretation: T-wave abnormalities and lateral leads. EKG Comparison: No Significant Change - Similar to previous EKG on 10/25/2017 Re-Evaluation - Re-Evaluation First Eval Re-Evaluation Time: 19:42 Change: Unchanged Comment: No change. Patient is still the same. Second Eval Re-Evaluation Time: 22:52 Change: Unchanged Comment: Pt signed out from Dr Ramos pending 2nd trop, which remains in normal range. Pt has no new complaints and is stable for discharge. Course/Dx - Course Course Of Treatment: A 82 y/o male JANEL presents to ED c/o extreme dizziness and being winded. According to the patient, he walked out to his mailbox which was about 100 ft. Once at the mailbox, he could not get back home because he felt dizzy and winded. Pt denies any CP or SOB, however has a mildly productive cough. An EKG revealed normal sinus rhythm of 66 BPM. T-wave abnormalities and lateral leads which is similar compare to previous. A CXR revealed Small pleural effusions and questionable patchy infiltrate at the right lung base but overall improved comapred to previous. In the ED course, the patient recieved no medications. During reevaluation of the patient, it was found that the patient exhibited no change. Patient will be signed out to Dr. Frances. Currently awaiting Troponin. - Diagnoses Provider Diagnoses: SOB (shortness of breath) Discharge - Sign-Out/Discharge Documenting (check all that apply): Patient Departure Signing out patient TO: Asher Frances Receiving patient FROM: Shanice Ramos - Discharge Plan Condition: Good Disposition: HOME Patient Education Materials: Dyspnea (ED) Referrals: Perez Santoyo MD [Primary Care Provider] - () Additional Instructions: . - Billing Disposition and Condition Condition: GOOD Disposition: Home
--- OUTSIDE RECORDS SUMMARY | 2017-11-01 19:26 | XMS REPORT ---
:1935 External Reference #:[id number] Author Organization [facility] Address [address] [place] [address] Phone [phone] Care Team Providers Name Role Phone HCP given Primary Care Physician Unavailable Payers Type Date Identification Numbers Payment Provider Subscriber Medicare Primary Effective: Policy Number: National [facility] Perez Benito Blue 2002 [id number] Services PayID: [id number] [address] [place] [address] Medigap Part B Policy Number: [id number] [place] Perez Averylaureano Group Number: [id number] [address] PayID: [id number] [place] [address] Problems Date Description Provider Status Onset: 09/25/2003 Benign essential hypertension Perez Santoyo M.D. 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 Active Onset: 10/04/2004 Coronary arteriosclerosis Perez Santoyo M.D. Active Onset: 02/29/2008 Essential tremor Perez Santoyo M.D. Active Onset: 01/05/2015 Essential hypertension Perez Santoyo M.D. 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 Active Onset: 05/19/2016 Spinal stenosis of lumbar region Peerz Santoyo M.D. Active Family History Date Family Member(s) Problem(s) Comments Father [place] in his early 80s : (10/2003) Father due to Natural (age 89 Years) Causes Father Heart Disease Father Essential Tremor Father 1913 Mother Non Insulin Dependent Diabetes Mother Stroke Mother High Blood Pressure Mother 1915 First Brother Glaucoma First Brother [place] 1941 First Sister Non Insulin Dependent Diabetes First Sister Mago 1938 Second Sister Unremarkable Second Sister Swathi Salazar 1954 Social History Type Date Description Comments Education Highest level of education completed is trade school Marital Status Patient is . Spouse 03/28. 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 Cigarette Use 02/01/2014 Denies Cigarette Use smoked pipe in the past, quit in his 60s. ETOH Use Drinks Alcohol Occasionally Recreational Drug Use Denies Drug Use Smoking Non Smoker Daily Caffeine Consumes on average 2 cups of coffee per day Daily Caffeine Consumes on average 1 cup of tea per day Sun Exposure Moderate amount of sun exposure. Does not use sunscreen Seat Belt/Car Seat Always uses a seat belt Currently Active The patient is currently not sexually active Age [address] [employer] First intercourse was at age 23 # Partners in a Lifetime The patient has had 1 sexual partner Allergies, Adverse Reactions, Alerts Date Description Reaction Status Severity Comments 09/25/2003 NKDA active Medications Medication Date Status Form Strength Qnty SIG Indications Ordering Provider Azithromycin Hx Tablets 500mg take 1 Unknown 018 - tablet by mouth once 018 daily for pneumonia Cefuroxime Hx Tablets 250mg 28tabs 2 tabs J18.9 Silcoff, Axetil 018 - twice daily Perez for 1 extra M.D. 018 week; for pneumonia and Lyme disease A69.20 Onetouch Ultrasoft 09/16/2017 Active Misc 100units use as E11.40 Rose Santoyo for blood M.DPepe sugar monitoring PT For Balance And 08/14/2017 Active please R29.6 Yarelis Gait evaluate Perez and Carolyn serra instruct in hep, modalities prn Shingrix 08/14/2017 Hx Suspension 5 2units administer Z23 Yarelis, - Rec 0 2 doses as Perez 02/10/2018 benito mills M.D. c per cdc g guidelines Delsym 01/11/2017 Active prn Unknown Hydrochlorothiazide 10/02/2016 Active Capsules 1 25caps take one I10 S[place]ak, 2 tablet by Ru, . mouth 2x/wk D.O. 5 (Mon, Th) m in the g morning for high blood pressure Tylenol With 06/17/2016 Active Tablets 3 45tabs 1 by mouth M48.06 Unknown Codeine #3 0 three times 0 a day as - needed for 3 pain 0 m g M54.5 Lyrica 06/17/2016 Active Capsules 25mg 90caps 1 by mouth in M79.605 SilcoPerez weiss, morning and 2 M.D. by mouth at night; for nerve pain in legs M79.604 E11.40 Lisinopril 06/17/2016 Active Tablets 20mg 180tabs take 1 tablet I10 Silcoff, by mouth twice Carolyn Todd a day for high blood pressure Tramadol HCL 04/29/2016 Active Tablets 50mg 60tabs 1-2 by mouth M54.5 Silcoff, every night as Carolyn Todd needed for pain severe enough to be interfering with sleep M51.16 M54.17 Vitamin D 06/19/2015 Active Tablets 1000Unit 1 by mouth every Unknown day Ra Bacitracin 04/10/2015 Active Ointment 500Unit/GM apply to affected Unknown area once daily as needed Onetouch Ultra 08/16/2014 Active Strips 10 use once/day for E1 Silcoff , Blue 0u monitoring blood 1. elena Todd sugar 40 M.D. ts Finasteride 04/09/2011 Active Tablets 5mg 90 1 by mouth every 60 Silcoff, ta day, for enlarged 0. Perez bs prostate 00 M.D. Tamsulosin HCL 09/20/2010 Active Capsules 0.4mg 90 take 1 capsule by 60 Silcoff, ca mouth once daily 0. Perez ps for prostate 00 M.D. Asa 03/21/2005 Active 325 1 po qd for Unknown cardioprotection Colace 01/06/2005 Active Capsules 100mg 0c 1 take bid prn 56 Unknown ap 4. s 09 Nitroglycerin 08/20/2004 Active Tablets 0.4mg 1B 1 PO prn For Chest R0 Silcoff, ot Pain 7. Perez, tl 9 M.DPepe e I25.10 Lisinopril 06/17/19 Hx Tablets 20mg 1 pill every I10 Silcoff 17 - morning for high , 06/17/19 blood pressure Perez 17 M.D. Hydrochlorothiazide 12/17/19 Hx Capsules 12.5mg 25caps take one tablet I10 Silcoff 16 - by mouth 2x/wk , 06/17/19 (Thu, ) in the Perez, 17 morning for high M.D. blood pressure Lyrica 10/08/19 Hx Capsules 25mg 120caps 2 capsules by M79.605 Silcoff 16 - mouth twice a , 06/17/19 day (or 1 in in Perez, Manuelito the morning, 1 M.DPpee in aft, 2 at night) for nerve pain in legs M79.604 E11.40 Lyrica 06/20/2015 - Hx Capsules 25mg 120caps 1 by mouth M79.605 Silcoff , 10/08/2015 every morning Carolyn Todd and 2 pills nightly; increase to 2 pills 2x/day after 1 week if needed; for nerve pain in legs M79.604 E11.40 Lyrica 05/11/2015 - Hx Capsules 25mg 60caps 1 by mouth M79.605 Silcoff, 06/20/2015 every night for Carolyn Todd 3 days then increase it to 1 pill 2x/day; for nerve pain in legs M79.604 E11.40 Metaxalone 05/11/2015 - Hx Tablets 800mg 60tabs 1 by mouth M54.5 Silcoff, 09/24/2015 three times a Carolyn Todd day as needed for back pain Cephalexin 03/14/2015 - Hx Tablets 500mg 30tabs 1 by mouth 3x L03.031 Silcoff, 03/24/2015 a day x10 Carolyn Todd days; for toe infection Gabapentin 03/14/2015 - Hx Capsules 100mg 100caps 1 by mouth M79.605 Silcoff, 05/11/2015 every night Carolyn Todd to start; increase to 2x/day if needed; may inc by 1 pill/d up to 3 pills 2x/day; for leg pain M79.604 E11.40 Hydrochlorothiazide 01/05/2015 - Hx Tablets take one I10 Silcoff, 12/17/2015 tablet by Carolyn Todd mouth 2x/wk (Mon, Th) in the morning for high blood pressure Primidone 01/05/2015 - Hx Tablets 50mg 30ta 1/4 tab by G25.0 Silcoff, 01/19/2015 bs mouth every Perez M.DPepe night for 1 week, then increase by1/2 pill weekly if needed, for tremor; max 1 pill/day Tramadol HCL 08/19/2014 - Hx Tablets 50mg 30ta 1-2 by mouth 724.4 Silcoff, 09/18/2014 bs every 6 Perez M.DPepe hours as needed for pain; try to limit to evening/over night use 724.2 Methylprednisolone 08/19/2014 - Hx Tablets 4mg 1pack take as 724.4 Silcoff, (Ian) 08/25/2014 directed, for Perez, sciatica/left M.D. leg pain Hydrochlorothiazide 08/14/2014 - Hx Tablets 12.5m 45tabs 1 by mouth I10 Silcoff, 01/05/2015 g every 2nd day Perez, in the morning M.D. for high blood pressure PT For Low Back Pain 07/31/2014 - Hx please 724.2 Silcoff, And Radicular Pain In 01/04/2015 evaluate and Cipriano Todd Groin And Thigh treat, Carolyn modalities as needed, instruct in hep Vitamin D High 07/28/2014 - Hx Capsules 1000U 1 by mouth Unknown Potency 01/05/2015 nit every day Hydrochlorothiazide 12/07/2013 - Hx Tablets 25mg 45tabs take 12 401.1 Silcoff, 07/31/2014 tablet every Perez, morning for M.D. high blood pressure Tramadol HCL 07/04/2013 - Hx Tablets 50mg 30tabs 1-2 by mouth 723.1 Silcoff, 08/04/2013 every 6 hours Perez, as needed for M.D. pain; limit to evening/overni ght use Propranolol HCL 10/20/2012 - Hx Tablets 10mg 1 by mouth 401.1 Silcoff, 11/03/2012 twice a day Perez, for 1 week M.D. then 1 pill in morning only for 1 week then stop it; for tremor and BP 414.00 333.1 Symbicort 08/09/2012 - Hx Aerosol 80-4.5mcg/Act 1sample 2 puffs 486 Silcoff, 08/24/2012 2x/day; gerardo Todd M.D. after use Amoxicillin/Po 08/03/2012 - Hx Tablets 875-125mg 20tabs 1 by mouth 486 Silcoff, tassium 08/13/2012 twice a day Perez Clavulanate for 10 M.D. days; for pneumonia Azithromycin 07/30/2012 - Hx Tablets 250mg 6tabs 2 by mouth 486 Silcoff , 08/08/2012 on day then Perez 1 by mouth M.DPepe daily for 4 days; start this Thursday if not feeling better, sooner if symptoms worsening Benzonatate 07/30/2012 - Hx Capsules 200mg 30caps 1 by mouth 486 Silcoff, 08/28/2012 three times Perez, a day as M.DPepe needed for cough 786.2 Cinnamon 06/30/2012 - Hx Capsules Silcoff, 09/20/2012 Carolyn Todd Propranolol HCL 12/24/2010 - Hx Tablets 10mg 360ta 2 pills twice 401.1 Silcoff, 10/20/2012 bs a day for Carolyn Todd heart, blood pressure and tremor 414.00 333.1 Vitamin D3 Super 12/23/2010 - Hx Tablets 2000Unit 1 po q d Silcoff, Strength 07/30/2014 Carolyn Todd Crestor 09/20/2010 - Hx Tablets 5mg take 1 tablet 272. Silcoff, 12/23/2010 daily for high 0 Carolyn Todd cholesterol Propranolol HCL 07/31/2010 - Hx Tablets 60mg 90ta 1/2 pill twice 401. Silcoff, 12/24/2010 bs daily for blood 1 Carolyn Todd pressure, heart and tremor 414.00 333.1 Crestor 07/31/2010 - Hx Tablets 5mg 30tabs take 1 tablet 272.0 Silcoff, 08/14/2010 daily for high Carolyn Todd cholesterol Hydrochlorothiazide 05/06/2010 - Hx Tablets 25mg 90tabs take 1 tablet 401.1 Silcoff, 12/07/2013 every morning paige Todd M.D. blood pressure Gabapentin 03/04/2010 - Hx Capsules 300mg 90caps 1 po qhs 729.5 Silcoff , 12/23/2010 tonight then Perez, 1 po bid for M.D. 1 day then 1 po tid 724.4 HCTZ 12/26/2009 - Hx Tablets 25mg 1 po qam for 401.1 Silcoff, 05/06/2010 high blood Carolyn Todd pressure Guaifenesin 09/14/2009 - Hx Tablets 400mg 24ta 1 tab q 6 786.2 Silcoff, 12/23/2010 bs hours for Carolyn Todd cough Azithromycin 09/14/2009 - Hx Tablets 250mg 6tab 2 tabs day 486 Silcoff, 04/02/2010 s one, one tab Carolyn Todd days 2-5 HCTZ 06/27/2009 - Hx Tablets 12.5mg 90ta 1 po qam for 401.1 Silcoff, 12/26/2009 bs high bp Carolyn Todd Proventil HFA 05/21/2009 - Hx Aerosol 108(90Ba 1uni 2 puffs q4h 486 Silcoff, 06/20/2009 se) ts prn for Carolyn Todd mcg/ac cough, wheezing Azithromycin 05/21/2009 - Hx Tablets 250mg 6tab 2 po qd on 486 Silcoff, 05/26/2009 s day 1 then 1 Carolyn Todd po qd for 4 days Benzonatate 05/21/2009 - Hx Capsules 100mg 30ca 1-2 po tid 786.2 Silcoff, 05/31/2009 ps prn for Carolyn Todd cough Prednisone 05/21/2009 - Hx Tablets 50mg 5tab 1 po qd for 486 Silcoff, 05/26/2009 s 5 days Carolyn Todd Propranolol HCL 12/26/2008 - Hx Tablets 60mg 180t 1 po bid for 401.1 Silcoff, 07/31/2010 abs high blood Carolyn Todd pressure and tremor 414.00 333.1 HCTZ 10/23/2008 - Hx Tablets 25mg 90tabs 1 po qam for 401.1 Silcoff, 06/27/2009 high blood Carolyn Todd pressure Ceftin 09/25/2008 - Hx Tablets 500mg 20tabs 1 po bid for 786.2 Silcoff, 10/05/2008 pneumonia Carolyn Todd 486 Azithromycin 09/20/2008 - Hx Tablets 250mg 6tabs 2 po qd on 786.2 Silcoff, 09/25/2008 day 1 then 1 Perez, po qd for 4 M.D. days Benzonatate 09/20/2008 - Hx Capsules 100mg 30caps 1-2 po tid 786.2 Silcoff, 10/05/2008 prn for Perez cough M.D. Propranolol HCL 11/29/2007 - Hx Tablets 40mg 180tabs 1 po bid for 401.1 Silcoff, 12/26/2008 heart and to Perez decrease M.D. tremor 414.00 333.1 Hydrocodone/Apap 06/28/2007 - Hx Tablets 5-325mg 100tabs 1-2 po q4h 729.5 Silcoff, 07/20/2007 prn for Perez pain M.D. Gabapentin 06/28/2007 - Hx Capsules 300mg 90caps 1 PO tid; 729.5 Silcoff, 11/29/2007 may taper Perez as alvaro Romero.[place] PT For Radicular 06/28/2007 - Hx please 729.5 Silcoff, Left Leg Pain 11/29/2007 evaluate prerna Todd M.D. modalities prn, instruct in hep Lisinopril 07/09/2006 - Hx Tablets 20mg 180tabs take 1 I10 Silcoff, 06/17/2016 tablet by parish Todd twice M.D. a day for high blood pressure One-Touch Ultra 02/18/2006 - Hx Lancets 100units use as Silcoff, Soft Lancets 09/16/2017 directed Carolyn Todd HCTZ 01/14/2006 - Hx Capsules 12.5mg 90caps 1 po qd for 401.1 Silcoff, 10/23/2008 high blood Perez pressure M.D. Zestril 12/24/2005 - Hx Tablets 20mg 180tabs 1 po bid 401.1 Silcoff, 07/09/2006 for high Perez blood Benito.DPepe pressure Zestril 09/16/2005 - Hx Tablets 20mg 90tabs 1 po qd for 401.1 Silcoff, 12/24/2005 blood wild Todd M.D. Zestril 03/25/2005 - Hx Tablets 10mg 1 po qd 401.1 Silcoff, 09/16/2005 Carolyn Todd Furosemide 02/07/2005 - Hx Tablets 40mg 30tabs 1 po qd in 786.09 klepack 06/27/2005 am Asa (Baby) 01/28/2005 - Hx 81mg 1 po qd Silcoff, 03/25/2005 Carolyn Todd Lopressor 01/28/2005 - Hx Tablets 50mg 180tabs 1 po bid 401.1 Silcoff, 11/29/2007 Carolyn Todd 414.00 414.01 Xylocaine 01/28/2005 - Hx Ointment 2.5% 1Tube apply a small 565.0 Silcoff, 01/14/2006 amount per Carolyn Todd rectum before bowel movements, may also use it prn after bowel movements Flomax 01/28/2005 - Hx Capsules 0.4mg 90caps 1 po qd 600.00 Silcoff, 09/20/2010 Carolyn Todd Miralax 01/28/2005 - Hx Powder 1Bottle drink 17gms (1 564.09 Silcoff, 10/01/2016 cap) mixed in Carolyn Todd 8oz of water once daily as needed for constipation. Lipitor 01/07/2005 - Hx Tablets 20mg 1 po qd for 272.0 Silcoff, 01/28/2005 high Carolyn Todd cholesterol Metoprolol 01/07/2005 - Hx Tablets 25mg 0tabs 1 po bid 414.00 Silcoff, 01/28/2005 Carolyn Todd 401.1 Lisinopril 01/07/2005 - Hx Tablets 2.5mg 1 po qd 401.1 Silcoff, 01/28/2005 Carolyn Todd Ferrous Sulfate 01/07/2005 - Hx Tablets 325mg 0t 1 po bid on an 285.1 Silcoff, 01/28/2005 ab empty stomach serafin Todd M.D. Aspirin 01/07/2005 - Hx Tablets 81mg 1 po qd Silcoff, 01/28/2005 Carolyn Todd Colace 01/07/2005 - Hx Capsules 100mg 0c 1 pill twice a Silcoff, 01/28/2005 ap day for serafin Todd constipation M.DPepe Vicodin 01/07/2005 - Hx Tablets 5mg;500 mg 1-2 po q6h prn Silcoff, 01/28/2005 for pain Carolyn Todd Plavix 01/06/2005 - Hx Tablets 75mg 0t 1 po qd 414.01 Silcoff, 03/25/2005 ab serafin Todd M.D. Hydrocodone & 01/06/2005 - Hx Capsules 5mg;500 mg 0c 1-2 q6h prn 786.50 Unknown Acetaminophen 04/25/2005 ap pain s Lipitor 01/06/2005 - Hx Tablets 40mg 45 1/2 po qd for 272.0 Silcoff, 04/03/2010 ta high darryl Todd cholesterol M.D. Zestril 01/06/2005 - Hx Tablets 5mg 0t 1/2 po qd for 401.1 Unknown 03/25/2005 ab blood pressure s Plavix 09/23/2004 - Hx Tablets 75mg 0t 1 po qd Unknown 01/28/2005 ab s Ecotrin 09/23/2004 - Hx Tablets 325mg 1 po qd Unknown 01/07/2005 Altace 09/20/2004 - Hx Capsules 2.5mg 0c 1 PO qd Unknown 01/07/2005 ap s One Touch Ultra 08/20/2004 - Hx 20 use as 250.60 Silcoff, Test Strips 08/16/2014 0u directed, up elena Todd to four times M.D. ts a day Tessalon 06/05/2004 - Hx Perles 100mg 30 1-2 PO tid prn 486 Silcoff, 06/15/2004 un Cough andrés Todd M.D. s PT Referral For 05/29/2004 - Hx evaluate and 726.0 Silcoff, Bilat Frozen 06/27/2005 treat, Perez, Shoulders modalities prn MZen Todd Does Not 02/06/2004 - Hx Prophylaxis V12.09 Silcoff, Require 02/07/2004 Steffen Todd M.D. Elocon 09/25/2003 - Hx Cream 0.1% 45 apply qd as 691.8 Silcoff, 05/29/2004 gm directed to Perez itchy rash on M.D. legs Lipitor 05/03/2003 - Hx Tablets 10mg 90 1 po qd supper 272.0 Silcoff, 01/07/2005 ta time to reduce darryl Todd cholesterol M.D. HCTZ 02/03/2003 - Hx Tablets 25mg 90 1 po qd for Silcoff, 01/07/2005 ta high blood darryl Todd pressure M.DPepe Norvasc 02/03/2003 - Hx Tablets 5mg 90 1 po qd For Silcoff, 10/04/2004 ta High Blood darryl Todd Pressure M.D. Aspirin Enteric 02/03/2003 - Hx Tablets 81mg 1 po qd Silcoff, Coated 10/04/2004 Carolyn Todd Vitamin D3 - Hx Tablets 2000Unit 1 by mouth Unknown 06/20/2015 every day Immunizations CPT Code Status Date Vaccine Lot # 45023 Given 08/18/2017 Shingrix Zoster (Shingles) Vaccine (HZV) Recomb,Subnit,Adjuvanted 42674 Given 08/18/2017 Prevnar 13 43882 Given 01/12/2017 Influenza Vaccine Split Virus Preservative Free Im [id number] Use 77849 Given 02/12/2016 Influenza Virus Vaccine, Quadrivalent, Split, [id number] Preservative Free 81314 Given 01/19/2015 Influenza Vaccine Split Virus Preservative Free Im [id number] Use 76043 Given 01/05/2015 Prevnar 13 [id number] 97898 Given 07/03/2014 Adacel or Boostrix, TDaP [id number] 80644 Given 03/07/2014 Influenza Vaccine Split Virus Preservative Free Im [id number] Use 49459 Given 01/31/2013 Flu, Split Virus 3Yrs [id number] 71001 Given 02/24/2012 Flu, Split Virus 3Yrs [id number] 24160 Given 12/24/2010 Flu, Split Virus 3Yrs [id number] 63440 Given 12/26/2009 Flu, Split Virus 3Yrs [id number] 61844 Given 12/26/2008 Flu, Split Virus 3Yrs [id number] 45285 Given 01/24/2008 Flu, Split Virus 3Yrs [id number] 44222 Given 01/11/2007 Flu, Split Virus 3Yrs [id number] 02180 Given 04/21/2006 Pneumococcal Immunization [id number] 01136 Given 02/16/2006 Flu, Split Virus 3Yrs [id number] 94522 Given 01/28/2005 Flu, Split Virus 3Yrs 62879 Given 02/06/2004 Td Immunization 34899 Given 02/06/2004 Flu, Split Virus 3Yrs 22712 Given 02/03/2003 Flu, Split Virus 3Yrs 09807 Given 03/06/2000 Pneumococcal Immunization [id number] Refused 11/27/2006 Zostavax Vital Signs Date Vital Result Comment 10/30/2017 BP Systolic 122 mmHg BP Diastolic 70 mmHg BP Systolic Recheck 100 mmHg R arm sitting BP Diastolic Recheck 54 mmHg R arm sitting Heart Rate 66 /min reg Respiratory Rate 16 /min not laboured; moderate congested cough Body Temperature 98.0 F Weight 206.00 lb with shoes 08/14/2017 BP Systolic 130 mmHg BP Diastolic 78 mmHg Height 75 inches 6'3" w/shoes and steel lift in shoe Weight 213.00 lb w/shoes and steel lift in shoe BMI (Body Mass Index) 26.6 kg/m2 05/09/2017 BP Systolic 118 mmHg BP Diastolic 72 mmHg Weight 209.00 lb 01/12/2017 BP Systolic 108 mmHg per nurse, our machine BP Diastolic 58 mmHg per nurse, our machine BP Systolic Recheck 109 mmHg pts machine BP Diastolic Recheck 57 mmHg pts machine Weight 209.00 lb w/boots 11/07/2016 BP Systolic 128 mmHg BP Diastolic 64 mmHg BP Systolic Recheck 138 mmHg R arm sitting BP Diastolic Recheck 76 mmHg R arm sitting Weight 205.00 lb w/shoes 10/02/2016 BP Systolic 150 mmHg BP Diastolic 82 mmHg Weight 213.00 lb 08/12/2016 BP Systolic 108 mmHg BP Diastolic 70 mmHg Height 74 inches 6'2" Weight 222.00 lb BMI (Body Mass Index) 28.5 kg/m2 07/08/2016 BP Systolic 128 mmHg BP Diastolic 64 mmHg BP Systolic Recheck 136 mmHg R arm sitting BP Diastolic Recheck 74 mmHg R arm sitting Weight 221.00 lb with boots 05/19/2016 BP Systolic 130 mmHg BP Diastolic 74 mmHg Weight 217.00 lb 04/29/2016 BP Systolic 106 mmHg BP Diastolic 60 mmHg 04/10/2016 BP Systolic 114 mmHg BP Diastolic 76 mmHg Weight 213.00 lb 02/12/2016 BP Systolic 140 mmHg BP Diastolic 80 mmHg Height 75 inches 6'3" w/shoes Weight 214.00 lb w/shoes BMI (Body Mass Index) 26.7 kg/m2 01/18/2016 BP Systolic 132 mmHg BP Diastolic 80 mmHg Respiratory Rate 16 /min not laboured Body Temperature 98.0 F Weight 214.00 lb 10/08/2015 BP Systolic 132 mmHg BP Diastolic 84 mmHg BP Systolic Recheck 118 mmHg R arm sitting BP Diastolic Recheck 70 mmHg R arm sitting Weight 216.00 lb with shoes 06/20/2015 BP Systolic 132 mmHg per RN BP Diastolic 75 mmHg per RN BP Systolic Recheck 126 mmHg R arm sitting BP Diastolic Recheck 70 mmHg R arm sitting Height 75 inches 6'3" with shoes Weight 218.00 lb with shoes BMI (Body Mass Index) 27.2 kg/m2 05/11/2015 BP Systolic 130 mmHg BP Diastolic 64 mmHg Weight 221.00 lb 03/14/2015 BP Systolic 120 mmHg BP Diastolic 62 mmHg Weight 216.00 lb with shoes 01/19/2015 BP Systolic 126 mmHg BP Diastolic 68 mmHg Heart Rate 68 /min reg Weight 218.00 lb 01/05/2015 BP Systolic 120 mmHg BP Diastolic 70 mmHg BP Systolic Recheck 128 mmHg R arm sitting BP Diastolic Recheck 70 mmHg R arm sitting BP Systolic Standing Resting Right Arm 110 mmHg BP Diastolic Standing Resting Right Arm 66 mmHg Weight 217.00 lb with shoes 09/19/2014 BP Systolic 112 mmHg BP Diastolic 68 mmHg Weight 209.00 lb shoes on 08/19/2014 BP Systolic 152 mmHg BP Diastolic 80 mmHg 07/31/2014 BP Systolic 96 mmHg BP Diastolic 60 mmHg BP Systolic Recheck 104 mmHg R arm sittng BP Diastolic Recheck 60 mmHg R arm sittng BP Systolic Standing Resting Right Arm 90 mmHg BP Diastolic Standing Resting Right Arm 68 mmHg Weight 216.00 lb shoes on 07/03/2014 BP Systolic 104 mmHg BP Diastolic 58 mmHg Height 75 inches w/shoes Weight 213.00 lb w/shoes BMI (Body Mass Index) 26.6 kg/m2 02/01/2014 BP Systolic 100 mmHg Right arm BP Diastolic 56 mmHg Right arm BP Systolic Recheck 107 mmHg pt's machine-R arm BP Diastolic Recheck 54 mmHg pt's machine-R arm Heart Rate 67 /min Weight 213.00 lb w/shoes 12/07/2013 BP Systolic 90 mmHg BP Diastolic 48 mmHg BP Systolic Recheck 70 mmHg R arm sitting BP Diastolic Recheck 42 mmHg R arm sitting Height 74 inches 6'2" Weight 210.00 lb BMI (Body Mass Index) 27.0 kg/m2 07/04/2013 BP Systolic 90 mmHg BP Diastolic 60 mmHg Weight 220.00 lb 06/08/2013 BP Systolic 108 mmHg BP Diastolic 60 mmHg Height 75.25 inches 6'3.25" shoes on Weight 217.00 lb shoes on BMI (Body Mass Index) 26.9 kg/m2 01/31/2013 BP Systolic 110 mmHg BP Diastolic 60 mmHg Weight 212.00 lb 12/01/2012 BP Systolic 100 mmHg BP Diastolic 58 mmHg Heart Rate 68 /min reg Weight 211.00 lb 10/20/2012 BP Systolic 120 mmHg BP Diastolic 70 mmHg Heart Rate 52 /min reg Respiratory Rate 14 /min not laboured Height 75 inches 6'3" Weight 210.00 lb BMI (Body Mass Index) 26.2 kg/m2 08/18/2012 BP Systolic 110 mmHg BP Diastolic 60 mmHg Respiratory Rate 14 /min not laboured Body Temperature 97.5 F Weight 213.00 lb w/heavy boots 08/09/2012 BP Systolic 100 mmHg BP Diastolic 78 mmHg Heart Rate 72 /min reg Respiratory Rate 14 /min not laboured Body Temperature 98.4 F Weight 210.00 lb 08/03/2012 BP Systolic 110 mmHg BP Diastolic 60 mmHg Heart Rate 76 /min reg Respiratory Rate 18 /min not laboured O2 % BldC Oximetry 93 % on r/a; 92% walking Body Temperature 98.2 F 07/30/2012 BP Systolic 160 mmHg BP Diastolic 84 mmHg Heart Rate 60 /min reg Respiratory Rate 14 /min not laboured Body Temperature 97.9 F Weight 214.00 lb 07/14/2012 BP Systolic 110 mmHg by nurse w/ our cuff BP Diastolic 70 mmHg by nurse w/ our cuff BP Systolic Recheck 117 mmHg w/ his cuff BP Diastolic Recheck 66 mmHg w/ his cuff Heart Rate 60 /min reg Weight 215.00 lb 02/24/2012 BP Systolic 96 mmHg BP Diastolic 58 mmHg BP Systolic Recheck 106 mmHg R arm sitting BP Diastolic Recheck 58 mmHg R arm sitting Heart Rate 56 /min reg Height 74 inches 6'2" Weight 208.00 lb BMI (Body Mass Index) 26.7 kg/m2 08/27/2011 BP Systolic 112 mmHg BP Diastolic 58 mmHg BP Systolic Recheck 106 mmHg R arm sitting BP Diastolic Recheck 54 mmHg R arm sitting Weight 211.00 lb 05/27/2011 BP Systolic 118 mmHg BP Diastolic 62 mmHg Heart Rate 52 /min reg Body Temperature 97.6 F Weight 211.00 lb 03/26/2011 BP Systolic 102 mmHg BP Diastolic 60 mmHg Height 74 inches 6'2" Weight 203.00 lb BMI (Body Mass Index) 26.1 kg/m2 12/24/2010 BP Systolic 112 mmHg BP Diastolic 68 mmHg Heart Rate 56 /min reg Weight 198.00 lb Last Menstrual Period 0 09/20/2010 BP Systolic 80 mmHg right arm manually; 75/43 electronic BP Diastolic 40 mmHg right arm manually; 75/43 electronic BP Systolic Recheck 94 mmHg left arm manually; 87/43 electronic BP Diastolic Recheck 56 mmHg left arm manually; 87/43 electronic Heart Rate 56 /min reg Weight 207.00 lb BP Systolic Sitting Resting Right Arm 96 mmHg BP Diastolic Sitting Resting Right Arm 48 mmHg 07/31/2010 BP Systolic 130 mmHg BP Diastolic 76 mmHg BP Systolic Recheck 156 mmHg R arm sitting BP Diastolic Recheck 76 mmHg R arm sitting Heart Rate 46 /min reg Respiratory Rate 12 /min not laboured Height 74.50 inches 6'2.50" Weight 209.00 lb BMI (Body Mass Index) 26.5 kg/m2 Last Menstrual Period 0 04/03/2010 BP Systolic 106 mmHg BP Diastolic 62 mmHg Weight 211.00 lb 03/04/2010 BP Systolic 92 mmHg BP Diastolic 60 mmHg Weight 210.00 lb 12/26/2009 BP Systolic 138 mmHg BP Diastolic 70 mmHg BP Systolic Recheck 144 mmHg R arm sitting BP Diastolic Recheck 70 mmHg R arm sitting Height 74.5 inches 6'2.50" Weight 210.00 lb w/out shoes BMI (Body Mass Index) 26.6 kg/m2 09/14/2009 BP Systolic 162 mmHg BP Diastolic 77 mmHg BP Systolic Recheck 141 mmHg BP Diastolic Recheck 78 mmHg Heart Rate 66 /min Pulse 68 O2 % BldC Oximetry 95 % Body Temperature 98.0 F Weight 218.00 lb 06/27/2009 BP Systolic 104 mmHg BP Diastolic 66 mmHg Weight 217.00 lb Last Menstrual Period 0 05/21/2009 BP Systolic 130 mmHg BP Diastolic 80 mmHg Heart Rate 64 /min reg Respiratory Rate 14 /min not laboured Body Temperature 98.5 F Weight 220.00 lb Last Menstrual Period 0 12/26/2008 BP Systolic 110 mmHg BP Diastolic 68 mmHg Weight 227.00 lb Last Menstrual Period 0 10/04/2008 BP Systolic 124 mmHg BP Diastolic 60 mmHg BP Systolic Recheck 138 mmHg R arm sitting BP Diastolic Recheck 62 mmHg R arm sitting Heart Rate 60 /min reg Respiratory Rate 16 /min not laboured Weight 221.00 lb Last Menstrual Period 0 09/25/2008 BP Systolic 152 mmHg BP Diastolic 90 mmHg Heart Rate 64 /min reg Respiratory Rate 16 /min not laboured Body Temperature 97.8 F Weight 223.00 lb 09/20/2008 BP Systolic 132 mmHg BP Diastolic 72 mmHg Heart Rate 64 /min reg Respiratory Rate 16 /min not laboured Body Temperature 98.0 F Height 75.75 inches 6'3.75" Weight 223.00 lb BMI (Body Mass Index) 27.3 kg/m2 06/09/2008 BP Systolic 116 mmHg BP Diastolic 68 mmHg Height 75.75 inches w/shoes Weight 219.00 lb BMI (Body Mass Index) 26.8 kg/m2 02/29/2008 BP Systolic 150 mmHg BP Diastolic 80 mmHg Height 75 inches 6'3" Weight 223.00 lb BMI (Body Mass Index) 27.9 kg/m2 11/29/2007 BP Systolic 110 mmHg BP Diastolic 70 mmHg Heart Rate 60 /min reg Height 75 inches 6'3" Weight 223.00 lb BMI (Body Mass Index) 27.9 kg/m2 08/13/2007 BP Systolic 110 mmHg BP Diastolic 58 mmHg Height 75 inches 6'3" Weight 216.00 lb BMI (Body Mass Index) 27.0 kg/m2 07/20/2007 BP Systolic 130 mmHg BP Diastolic 80 mmHg Height 75 inches 6'3" Weight 207.00 lb BMI (Body Mass Index) 25.9 kg/m2 06/28/2007 BP Systolic 130 mmHg BP Diastolic 66 mmHg Height 75 inches 6'3" Weight 215.00 lb BMI (Body Mass Index) 26.9 kg/m2 05/31/2007 BP Systolic 110 mmHg BP Diastolic 56 mmHg Height 75 inches 6'3" Weight 214.00 lb BMI (Body Mass Index) 26.7 kg/m2 11/27/2006 BP Systolic 122 mmHg BP Diastolic 70 mmHg Height 75 inches 6'3" Weight 210.00 lb BMI (Body Mass Index) 26.2 kg/m2 08/19/2006 BP Systolic 118 mmHg BP Diastolic 70 mmHg Height 75 inches 6'3" Weight 210.00 lb BMI (Body Mass Index) 26.2 kg/m2 04/21/2006 BP Systolic 120 mmHg BP Diastolic 66 mmHg BP Systolic Recheck 138 mmHg R arm sitting BP Diastolic Recheck 64 mmHg R arm sitting Heart Rate 68 /min reg Respiratory Rate 16 /min not laboured Height 75 inches 6'3" Weight 215.00 lb BMI (Body Mass Index) 26.9 kg/m2 02/16/2006 BP Systolic 136 mmHg R arm sitting BP Diastolic 70 mmHg R arm sitting Heart Rate 64 /min reg Respiratory Rate 16 /min not laboured Body Temperature 97.8 F Height 75 inches 6'3" Weight 212.00 lb BMI (Body Mass Index) 26.5 kg/m2 01/14/2006 BP Systolic 128 mmHg BP Diastolic 64 mmHg BP Systolic Recheck 134 mmHg R arm sitting BP Diastolic Recheck 70 mmHg R arm sitting Height 75 inches 6'3" Weight 207.50 lb BMI (Body Mass Index) 25.9 kg/m2 10/20/2005 BP Systolic 134 mmHg BP Diastolic 64 mmHg BP Systolic Recheck 140 mmHg R arm sitting BP Diastolic Recheck 70 mmHg R arm sitting Heart Rate 62 /min reg Height 75 inches 6'3" Weight 208.50 lb BMI (Body Mass Index) 26.1 kg/m2 09/16/2005 BP Systolic 132 mmHg BP Diastolic 70 mmHg BP Systolic Recheck 150 mmHg R arm sitting BP Diastolic Recheck 76 mmHg R arm sitting Heart Rate 64 /min reg Height 75 inches 6'3" Weight 210.00 lb BMI (Body Mass Index) 26.2 kg/m2 06/27/2005 BP Systolic 114 mmHg BP Diastolic 62 mmHg Height 75 inches 6'3" Weight 205.00 lb BMI (Body Mass Index) 25.6 kg/m2 04/25/2005 BP Systolic 108 mmHg BP Diastolic 62 mmHg Height 75 inches 6'3" Weight 206.00 lb BMI (Body Mass Index) 25.7 kg/m2 03/25/2005 BP Systolic 120 mmHg BP Diastolic 70 mmHg Heart Rate 66 /min reg Height 75 inches 6'3" Weight 208.00 lb BMI (Body Mass Index) 26.0 kg/m2 02/21/2005 BP Systolic 122 mmHg BP Diastolic 76 mmHg Height 75 inches 6'3" Weight 211.00 lb BMI (Body Mass Index) 26.4 kg/m2 02/07/2005 BP Systolic 120 mmHg BP Diastolic 80 mmHg Heart Rate 72 /min reg Respiratory Rate 16 /min not laboured Height 75 inches 6'3" Weight 216.00 lb BMI (Body Mass Index) 27.0 kg/m2 01/28/2005 BP Systolic 122 mmHg BP Diastolic 80 mmHg BP Systolic Recheck 124 mmHg R arm sitting BP Diastolic Recheck 78 mmHg R arm sitting Heart Rate 88 /min reg Respiratory Rate 16 /min not laboured Body Temperature 98.1 F Height 75 inches 6'3" Weight 219.00 lb BMI (Body Mass Index) 27.4 kg/m2 10/04/2004 BP Systolic 120 mmHg BP Diastolic 62 mmHg Body Temperature 97.8 F Height 75 inches 6'3" Weight 230.00 lb BMI (Body Mass Index) 28.7 kg/m2 Last Menstrual Period 0 08/20/2004 BP Systolic 110 mmHg BP Diastolic 64 mmHg Height 75 inches 6'3" Weight 230.00 lb BMI (Body Mass Index) 28.7 kg/m2 08/06/2004 BP Systolic 100 mmHg BP Diastolic 60 mmHg Height 75 inches 6'3" Weight 230.00 lb BMI (Body Mass Index) 28.7 kg/m2 07/03/2004 BP Systolic 108 mmHg BP Diastolic 64 mmHg Height 75 inches 6'3" Weight 229.00 lb BMI (Body Mass Index) 28.6 kg/m2 Last Menstrual Period 0 06/05/2004 BP Systolic 130 mmHg BP Diastolic 76 mmHg Body Temperature 99.7 F Height 75 inches 6'3" Weight 233.00 lb BMI (Body Mass Index) 29.1 kg/m2 05/29/2004 BP Systolic 110 mmHg BP Diastolic 65 mmHg Height 75 inches 6'3" Weight 239.00 lb BMI (Body Mass Index) 29.9 kg/m2 02/06/2004 BP Systolic 110 mmHg BP Diastolic 58 mmHg Height 75 inches 6'3" Weight 238.00 lb BMI (Body Mass Index) 29.7 kg/m2 11/06/2003 BP Systolic 110 mmHg BP Diastolic 60 mmHg Weight 238.00 lb 09/25/2003 BP Systolic 112 mmHg R Arm LG Cuff Sitting BP Diastolic 70 mmHg R Arm LG Cuff Sitting Height 75 inches 6'3" Weight 236.00 lb BMI (Body Mass Index) 29.5 kg/m2 05/03/2003 BP Systolic 100 mmHg BP Diastolic 64 mmHg Weight 230.00 lb 02/03/2003 BP Systolic 118 mmHg BP Diastolic 76 mmHg Height 75 inches 6'3" Weight 229.00 lb BMI (Body Mass Index) 28.6 kg/m2 Last Menstrual Period 0 Results Test Date Test Result H/L Range Note Comp Metabolic Panel 10/25/2017 Sodium 131 mmol/L Low 135-145 Potassium 4.3 mmol/L 3.5-5.0 Chloride 99 mmol/L Low 101-111 Co2 Carbon Dioxide 26 mmol/L 22-32 Anion Gap 6 mmol/L 2-11 Glucose 123 mg/dL High 70-100 Blood Urea Nitrogen 21 mg/dL 6-24 Creatinine 0.87 mg/dL 0.67-1.17 BUN/Creatinine Ratio 24.1 High 8-20 Calcium 8.3 mg/dL Low 8.6-10.3 Total Protein 6.5 g/dL 6.4-8.9 Albumin 3.6 g/dL 3.2-5.2 Globulin 2.9 g/dL 2-4 Albumin/Globulin Ratio 1.2 1-3 Total Bilirubin 0.80 mg/dL 0.2-1.0 Alkaline Phosphatase 97 U/L 34-104 Alt 42 U/L 7-52 Ast 51 U/L High 13-39 Egfr Non- 84.4 >60 Egfr 102.2 >60 1 Laboratory test finding 10/25/2017 C Reactive Protein 81.20 mg/L High < 8.01 Troponin-I (TnI) 0.02 ng/mL <0.04 B-Type Natriuretic Peptide BNP 103 pg/mL High 2 CBC Auto Diff 10/25/2017 White Blood Count 4.0 10^3/uL 3.5-10.8 Red Blood Count 4.22 10^6/uL 4.00-5.40 Hemoglobin 13.6 g/dL Low 14.0-18.0 Hematocrit 39 % Low 42-52 Mean Corpuscular Volume 92 fL 80-94 Mean Corpuscular Hemoglobin 32 pg High 27-31 Mean Corpuscular HGB Conc 35 g/dL 31-36 Red Cell Distribution Width 13 % 10.5-15 Platelet Count 111 10^3/uL Low 150-450 Mean Platelet Volume 7.9 um3 7.4-10.4 Abs Neutrophils 3.0 10^3/uL 1.5-7.7 Abs Lymphocytes 0.5 10^3/uL Low 1.0-4.8 Abs Monocytes 0.4 10^3/uL 0-0.8 Abs Eosinophils 0 10^3/uL 0-0.6 Abs Basophils 0 10^3/uL 0-0.2 Abs Nucleated RBC 0 10^3/uL Granulocyte % 74.3 % 38-83 Lymphocyte % 13.5 % Low 25-47 Monocyte % 11.1 % High 0-7 Eosinophil % 0.3 % 0-6 Basophil % 0.8 % 0-2 Nucleated Red Blood Cells % 0 Laboratory test finding 10/25/2017 Lactic Acid 0.6 mmol/L 0.5-2.0 3 Inr/Protime 10/25/2017 Inr 1.10 High 0.77-1.02 Laboratory test finding 10/25/2017 Partial Thrombo Time 23.5 seconds Low 26.0-36.3 PTT Urinalysis Profile 10/25/2017 Urine Color Straw Urine Appearance Clear Urine Specific [place] 1.003 Low 1.010-1.030 Urine pH 6.0 5-9 Urine Urobilinogen Negative Negative Urine Ketones Negative Negative Urine Protein Negative Negative Urine Leukocytes Negative Negative Urine Blood 1+ Negative Urine Nitrite Negative Negative Urine Bilirubin Negative Negative Urine Glucose Negative Negative Urine White Blood Cell Absent Absent Urine Red Blood Cell Trace(0-2/hpf) Absent Urine Bacteria Absent Absent Laboratory test finding 10/25/2017 Blood Culture SEE RESULT BELOW 4 Laboratory test finding 08/14/2017 Hemoglobin A1c 5.4 Urine Microalbumin Random 01/12/2017 Urine Creatinine 94.34 mg/dL Ur Microalbumin (mg/L) < 15.0 mg/L Urine Microalbumin/Creatinine TNP ug/mg <31 5 Laboratory test finding 11/07/2016 Hemoglobin A1c 5.4 Laboratory test finding 07/08/2016 Hemoglobin A1c 5.3 Urine Micro Inhouse 05/19/2016 Ua WBC TNTC 6 Ua RBC TNTC 6 Ua Casts - 6 Ua Epi - 6 Ua Other - 6 Ua Glucose - 6 Ua Bilirubin - 6 Ua Ketones - 6 Ua Specific [place] 1.025 6 Ua Blood lg 6 Ua PH 6.0 6 Ua Protein 3+ 6 Ua Urobilinogen - 6 Ua Nitrite - 6 Ua Leukocytes lg 6 Culture Urine Inhouse 05/19/2016 Colonies 10/6 6 Xray 04/22/2016 [place]'s Bilaterally wnl Doppler US, Arterial, Lower Extremity, Bilaterally wnl CBC Auto Diff 04/10/2016 White Blood Count 6.2 10^3/uL 3.5-10.8 Red Blood Count 4.74 10^6/uL 4.0-5.4 Hemoglobin 14.9 g/dL 14.0-18.0 Hematocrit 44 % 42-52 Mean Corpuscular Volume 92 fL 80-94 Mean Corpuscular Hemoglobin 31 pg 27-31 Mean Corpuscular HGB Conc 34 g/dL 31-36 Red Cell Distribution Width 13 % 10.5-15 Platelet Count 121 10^3/uL Low 150-450 Mean Platelet Volume 10 um3 7.4-10.4 Abs Neutrophils 3.8 10^3/uL 1.5-7.7 Abs Lymphocytes 1.8 10^3/uL 1.0-4.8 Abs Monocytes 0.5 10^3/uL 0-0.8 Abs Eosinophils 0.1 10^3/uL 0-0.6 Abs Basophils 0 10^3/uL 0-0.2 Abs Nucleated RBC 0 10^3/uL Granulocyte % 62.0 % 38-83 Lymphocyte % 28.7 % 25-47 Monocyte % 7.5 % 1-9 Eosinophil % 1.1 % 0-6 Basophil % 0.7 % 0-2 Nucleated Red Blood Cells % 0.1 Xray 04/10/2016 X-Ray, Lumbosacral Spine, DJD extensive Ap & Lat Minimum 4 Views Comp Metabolic Panel 04/10/2016 Sodium 138 mmol/L 133-145 Potassium 4.6 mmol/L 3.5-5.0 Chloride 100 mmol/L Low 101-111 Co2 Carbon Dioxide 32 mmol/L 22-32 Anion Gap 6 mmol/L 2-11 Glucose 84 mg/dL 70-100 Blood Urea Nitrogen 18 mg/dL 6-24 Creatinine 0.81 mg/dL 0.67-1.17 BUN/Creatinine Ratio 22.2 High 8-20 Calcium 8.9 mg/dL 8.6-10.3 Total Protein 6.8 g/dL 6.4-8.9 Albumin 3.9 g/dL 3.2-5.2 Globulin 2.9 g/dL 2-4 Albumin/Globulin Ratio 1.3 1-3 Total Bilirubin 0.70 mg/dL 0.2-1.0 Alkaline Phosphatase 79 U/L 34-104 Alt 14 U/L 7-52 Ast 19 U/L 13-39 Egfr Non- 92.2 >60 Egfr 118.5 >60 7 Protein Electrophoresis 04/10/2016 Total Protein(Pep) 6.9 g/dL 6.3 - 7.9 Albumin 3.5 g/dL 3.4-4.7 Alpha-1 Globulin 0.3 g/dL 0.1-0.3 Alpha-2 Globulin 0.9 g/dL 0.6-1.0 Beta Globulin 0.9 g/dL 0.7-1.2 Gamma Globulin 1.5 g/dL 0.6-1.6 Albumin/Globulin Ratio 1.00 Impression See Comment 8 Laboratory test finding 04/10/2016 Erythrocyte Sed Rate 7 mm/Hr 0-40 Vitamin B12 274 pg/mL 180-914 9 Folic Acid (Folate) > 20.00 ng/mL >3.99 Urine Micro Inhouse 02/12/2016 Ua WBC - 10 Ua RBC - 10 Ua Casts - 10 Ua Epi - 10 Ua Other - 10 Ua Glucose - 10 Ua Bilirubin - 10 Ua Ketones - 10 Ua Specific [place] 1.010 10 Ua Blood - 10 Ua PH 6.0 10 Ua Protein - 10 Ua Urobilinogen - 10 Ua Nitrite - 10 Ua Leukocytes - 10 Laboratory test finding 02/12/2016 Hemoglobin A1c 5.2 Basic Metabolic Panel 10/08/2015 Sodium 137 mmol/L 133-145 Potassium 3.9 mmol/L 3.5-5.0 Chloride 101 mmol/L 101-111 Co2 Carbon Dioxide 29 mmol/L 22-32 Anion Gap 7 mmol/L 2-11 Glucose 76 mg/dL 70-100 Blood Urea Nitrogen 18 mg/dL 6-24 Creatinine 0.80 mg/dL 0.67-1.17 BUN/Creatinine Ratio 22.5 High 8-20 Calcium 8.4 mg/dL Low 8.6-10.3 Egfr Non- 93.5 >60 Egfr 120.2 >60 11 Urine Microalbumin Random 10/08/2015 Ur Microalbumin (mg/L) < 5.0 mg/L Urine Creatinine 83.14 mg/dL Urine Microalbumin/Creatinine TNP ug/mg <31 12 Laboratory test finding 06/20/2015 Hemoglobin A1c 5.5 Urine Micro Inhouse 01/19/2015 Ua WBC - 13 Ua RBC - 13 Ua Casts - 13 Ua Epi - 13 Ua Other - 13 Ua Glucose - 13 Ua Bilirubin - 13 Ua Ketones - 13 Ua Specific [place] 1.010 13 Ua Blood - 13 Ua PH 6.0 13 Ua Protein - 13 Ua Urobilinogen - 13 Ua Nitrite - 13 Ua Leukocytes - 13 Culture Urine Inhouse 01/19/2015 Colonies no growth 13 Laboratory test finding 01/05/2015 Hemoglobin A1c 5.6 Urine Microalbumin Random 09/28/2014 Ur Microalbumin (mg/L) < 5.0 mg/L Urine Creatinine 87.57 mg/dL Urine Microalbumin/Creatinine TNP ug/mg <31 14 Basic Metabolic Panel 09/28/2014 Sodium 137 mmol/L 133-145 Potassium 4.6 mmol/L 3.5-5.0 Chloride 101 mmol/L 101-111 Co2 Carbon Dioxide 33 mmol/L High 22-32 Anion Gap 3 mmol/L 2-11 Glucose 81 mg/dL 70-100 Blood Urea Nitrogen 16 mg/dL 6-24 Creatinine 0.78 mg/dL 0.67-1.17 BUN/Creatinine Ratio 20.5 High 8-20 Calcium 8.6 mg/dL 8.6-10.3 Egfr Non- 96.5 >60 Egfr 124.1 >60 15 Laboratory test finding 09/19/2014 Hemoglobin A1c 5.9 Culture Urine Inhouse 08/29/2014 Colonies 01/20 Urine Micro Inhouse 08/29/2014 Ua WBC 0-1 Ua RBC 0-1 Ua Casts 0 Ua Epi - Ua Other - Ua Glucose - Ua Bilirubin - Ua Ketones - Ua Specific [place] 1.005 Ua Blood - Ua PH 6.0 Ua Protein - Ua Urobilinogen - Ua Nitrite - Ua Leukocytes - Laboratory test finding 07/03/2014 Hemoglobin A1c 5.7 Basic Metabolic Panel 02/01/2014 Sodium 138 mmol/L 133-145 Potassium 4.3 mmol/L 3.7-5.6 Chloride 102 mmol/L 101-111 Co2 Carbon Dioxide 32 mmol/L 22-32 Anion Gap 4 mmol/L 2-11 Glucose 78 mg/dL 70-100 Blood Urea Nitrogen 23 mg/dL 6-24 Creatinine 0.79 mg/dL 0.67-1.17 BUN/Creatinine Ratio 29.1 High 8-20 Calcium 8.5 mg/dL Low 8.6-10.3 Egfr Non- 95.4 >60 Egfr 122.6 >60 16 Laboratory test finding 12/07/2013 Hemoglobin A1c 5.5 Urine Microalbumin Random 06/08/2013 Ur Microalbumin (mg/L) 7.0 mg/dL < 30 17 Urine Creatinine 150.55 mg/dL Urine Microalbumin/Creatinine 4.6 Less Than 31 Laboratory test finding 06/08/2013 Hemoglobin A1c 5.8 Urine Micro Inhouse 01/31/2013 Ua WBC - Ua RBC - Ua Casts - Ua Epi - Ua Other - Ua Glucose - Ua Bilirubin - Ua Ketones - Ua Specific [place] 1.005 Ua Blood - Ua PH 6.5 Ua Protein - Ua Urobilinogen - Ua Nitrite - Ua Leukocytes - Laboratory test finding 01/31/2013 Hemoglobin A1c 5.6 Laboratory test finding 10/20/2012 Hemoglobin A1c 5.5 Surgical Pathology 09/16/2012 S RUN DATE: 09/20/ <SEE 18 NOTE> Comp Metabolic Panel 07/14/2012 Sodium 138 mmol/L 133-145 Potassium 4.1 mmol/L 3.5-5.0 Chloride 99 mmol/L Low 101-111 Co2 Carbon Dioxide 32.0 mmol/L 22-32 Anion Gap 7.0 mmol/L 2-11 Glucose 77 mg/dL 70-100 Blood Urea Nitrogen 17 mg/dL 6-24 Creatinine 0.80 mg/dL 0.50-1.40 BUN/Creatinine Ratio 21.3 High 8-20 Calcium 8.8 mg/dL 8.1-9.9 Total Protein 6.2 g/dL 6.2-8.1 Albumin 3.7 g/dL 3.2-5.2 Globulin 2.5 g/dL 2-4 Albumin/Globulin Ratio 1.5 1-3 Total Bilirubin 0.6 mg/dL 0.4-1.5 Alkaline Phosphatase 75 U/L 30-110 Alt 14 U/L 14-54 Ast 18 U/L 12-42 Egfr Non- 94.2 >60 Egfr 121.2 >60 19 CBC Auto Diff 07/14/2012 White Blood Count 6.1 10^3/uL 4.8-10.8 Red Blood Count 4.49 10^6/uL 4.0-5.4 Hemoglobin 14.2 g/dL 14.0-18.0 Hematocrit 42 % 42-52 Mean Corpuscular Volume 94 fL 80-94 Mean Corpuscular Hemoglobin 32 pg High 27-31 Mean Corpuscular HGB Conc 34 g/dL 31-36 Red Cell Distribution Width 13 % 10.5-15 Platelet Count 120 10^3/uL Low 150-450 Mean Platelet Volume 10 um3 7.4-10.4 Abs Neutrophils 3.5 10^3/uL 1.5-7.7 Abs Lymphocytes 1.9 10^3/uL 1.0-4.8 Abs Monocytes 0.4 10^3/uL 0-0.8 Abs Eosinophils 0.2 10^3/uL 0-0.6 Abs Basophils 0.1 10^3/uL 0-0.2 Abs Nucleated RBC 0.01 10^3/uL Granulocyte % 57.8 % 38-83 Lymphocyte % 31.1 % 25-47 Monocyte % 7.1 % 1-9 Eosinophil % 2.9 % 0-6 Basophil % 1.1 % 0-2 Nucleated Red Blood Cells % 0.1 Laboratory test finding 07/14/2012 Hemoglobin A1c 5.4 Laboratory test finding 07/14/2012 TSH (Thyroid Stimulating 1.52 miu/mL 0.34-5.60 Horm) Vitamin D, 25 Hydroxy 07/14/2012 25-Hydroxy Vitamin D2 <4.0 ng/mL 25-Hydroxy Vitamin D3 38 ng/mL 25-Hydroxy Vitamin D Total 38 ng/mL 20 Laboratory test finding 02/24/2012 Hemoglobin A1c 5.3 Urine Microalbumin Random 02/18/2012 Ur Microalbumin (Mg/L) 3.0 mg/L 21 Urine Creatinine 100.7 mg/dL Urine Microalbumin/Creatinine 3.0 UG/MG Less Than 31 Basic Metabolic Panel 02/18/2012 Sodium 136 mmol/L 133-145 Potassium 4.1 mmol/L 3.5-5.0 Chloride 100 mmol/L Low 101-111 Co2 Carbon Dioxide 33.0 mmol/L High 22-32 Anion Gap 3.0 mmol/L 2-11 Glucose 91 mg/dL 70-100 Blood Urea Nitrogen 18 mg/dL 6-24 Creatinine 0.70 mg/dL 0.50-1.40 BUN/Creatinine Ratio 25.7 High 8-20 Calcium 8.5 mg/dL 8.1-9.9 Egfr Non- 110.2 >60 Egfr 141.8 >60 22 Lipid Profile (Trig/Chol/HDL) 02/18/2012 Triglycerides 76 mg/dL 40-200 Cholesterol 177 mg/dL Less than 200 23 HDL Cholesterol 49 mg/dL 40-60 24 Cholesterol/HDL Ratio 3.6 AVERAGE 1-4.44 LDL Cholesterol 112.8 mg/dL High Less Than 100 Laboratory test finding 08/27/2011 Hemoglobin A1c 5.5 CBC Auto Diff 05/25/2011 White Blood Count 7.2 CUMM 4.8-10.8 25 Red Cell Count 4.41 CUMM Low 4.6-6.2 25 Hemoglobin 14.4 g/dL 14.0-18.0 25 Hematocrit 41 % Low 42-52 25 Mean Corpuscular Volume 92 um3 80-94 25 Mean Corpuscular Hemoglob 33 pg High 27-31 25 Mean Corpuscular HGB Cone 35 g/dL 32-36 25 Redcell Distribution WDTH 13 % 10.5-15 25 Platelet Count 107 CUMM Low 150-450 25 Mean Platelet Volume 8.6 um3 7.4-10.4 25 Gran % 76.5 % 38-83 25 Lymph % 16.0 % Low 25-47 25 Mononuclear % 5.6 % 1-9 25 Eosinophil % 1.6 % 0-6 25 Basophil % 0.3 % 0-2 25 Abs Lymphs 1.1 1.0-4.8 25 Abs Mononuclear 0.4 0-0.8 25 Absolute Neutrophil Count 5.5 1.5-7.7 25 Abs Eosinophils 0.1 0-0.6 25 Abs Basophils 0 0-0.2 25, 26 Comp Metabolic Panel 05/25/2011 Sodium 137 mmol/L 135-145 25 Potassium 3.6 mmol/L 3.5-5.0 25 Chloride 100 mmol/L Low 101-111 25 Co2 (Carbon Dioxide) 30.0 mmol/L 22-32 25 Anion Gap 7.0 mmol/L 2-11 25, 27 Glucose 123 mg/dL High 70-100 25 BUN 19 mg/dL 6-24 25 Creatinine 0.7 mg/dL 0.50-1.40 25 One Over Creatinine 1.42 25 BUN/Creatinine Ratio 27.1 High 8-20 25 Calcium 8.6 mg/dL 8.1-9.9 25 Total Protein 6.8 GM/DL 6.2-8.1 25 Albumin 3.5 GM/DL 3.2-5.2 25 Globulin 3.3 GM/DL 2-4 25 Albumin/Globulin Ratio 1.1 1-3 25 Bilirubin Total 0.6 mg/dL 0.4-1.5 25, 28 Alkaline Phosphatase 69 U/L 39-117 25 Alt (SGPT) 15 U/L Low 17-63 25 Ast (Sgot) 22 U/L 12-42 25 eGFR Non- 110.2 > 60 25 eGFR 141.8 > 60 25, 29 Laboratory test finding 05/25/2011 CPK (Creatine Kinase) 97 U/L 0-200 25 Troponin-I 0.01 NG/ML 0-0.06 25, 30 Laboratory test finding 03/26/2011 Hemoglobin A1c 5.7 Laboratory test finding 12/24/2010 Hemoglobin A1c 5.5 Laboratory test finding 10/03/2010 PSA,Diagnostic 0.46 NG/ML 0-4 31 Lipid Profile (Trig/Chol/HDL) 09/17/2010 Triglyceride 67 mg/dL 40-200 Cholesterol 178 mg/dL Less Than 200 32 High Density Lipoprotein 52 mg/dL 40-60 33 Cholesterol/HDL Ratio 3.42 AVERAGE 1-4.97 Low Density Lipoprotein 113 mg/dL High Less Than 100 34 Laboratory test finding 09/17/2010 Alt (SGPT) 13 U/L Low 17-63 Urine Microalbumin Random 09/17/2010 Microalbumin (MG/L) 10.0 mg/L Urine Creatinine 228.15 mg/dL [place]/Creatinine Ratio 4.3 UG/MG Less Than 30 35 Basic Metabolic Panel 07/26/2010 Sodium 139 mmol/L 135-145 Potassium 4.5 mmol/L 3.5-5.0 Chloride 103 mmol/L 101-111 Co2 (Carbon Dioxide) 32.0 mmol/L 22-32 Anion Gap 4.0 mmol/L 2-11 36 Glucose 95 mg/dL 70-100 BUN 14 mg/dL 6-24 Creatinine 0.90 mg/dL 0.50-1.40 One Over Creatinine 1.10 BUN/Creatinine Ratio 15.6 8-20 Calcium 8.8 mg/dL 8.1-9.9 eGFR Non- 82.7 > 60 eGFR 106.4 > 60 37 Laboratory test finding 07/26/2010 Hemoglobin A1c 5.8 % Less Than 6.0 38 Alt (SGPT) 15 U/L Low 17-63 Lipid Profile (Trig/Chol/HDL) 07/26/2010 Triglyceride 55 mg/dL 40-200 Cholesterol 158 mg/dL Less Than 200 39 High Density Lipoprotein 48 mg/dL 40-60 40 Cholesterol/HDL Ratio 3.29 AVERAGE 1-4.97 Low Density Lipoprotein 99 mg/dL Less Than 100 41 Urine Microalbumin Random 12/11/2009 Microalbumin (MG/L) < 2.0 mg/L Urine Creatinine 106.04 mg/dL 42 Basic Metabolic Panel 12/11/2009 Sodium 138 mmol/L 135-145 Potassium 4.2 mmol/L 3.5-5.0 Chloride 100 mmol/L Low 101-111 Co2 (Carbon Dioxide) 33.0 mmol/L High 22-32 Anion Gap 5.0 mmol/L 2-11 43 Glucose 90 mg/dL 70-100 44 BUN 15 mg/dL 6-24 Creatinine 0.67 mg/dL 0.50-1.40 One Over Creatinine 1.40 BUN/Creatinine Ratio 22.4 High 8-20 Calcium 8.8 mg/dL 8.1-9.9 45 eGFR Non- 123.9 > 60 eGFR 150.0 > 60 46 Laboratory test finding 12/11/2009 Hemoglobin A1c 5.5 % Less Than 6.0 47 Laboratory test finding 09/26/2009 PSA,Diagnostic 0.63 NG/ML 0-4 Lipid Profile (Trig/Chol/HDL) 06/20/2009 Triglyceride 62 mg/dL 40-200 Cholesterol 112 mg/dL Less Than 200 48 High Density Lipoprotein 36 mg/dL Low 40-60 49 Cholesterol/HDL Ratio 3.11 AVERAGE 1-4.97 Low Density Lipoprotein 64 mg/dL Less Than 100 50 Laboratory test finding 06/20/2009 Hemoglobin A1c 6.2 % High Less Than 6.0 51 Alt (SGPT) 14 U/L Low 17-63 Laboratory test finding 12/22/2008 Hemoglobin A1c 5.9 % Less Than 6.0 52 Alt (SGPT) 17 U/L 17-63 Lipid Profile (Trig/Chol/HDL) 12/22/2008 Triglyceride 81 mg/dL 40-200 Cholesterol 131 mg/dL Less Than 200 53 High Density Lipoprotein 41 mg/dL 40-60 54 Cholesterol/HDL Ratio 3.20 AVERAGE 1-4.97 Low Density Lipoprotein 74 mg/dL Less Than 100 55 Basic Metabolic Panel 12/22/2008 Sodium 139 mmol/L 135-145 Potassium 4.5 mmol/L 3.5-5.0 Chloride 102 mmol/L 101-111 Co2 (Carbon Dioxide) 31.0 mmol/L 22-32 Anion Gap 6.0 mmol/L 2-11 56 Glucose 96 mg/dL 70-100 57 BUN 11 mg/dL 6-24 Creatinine 0.70 mg/dL 0.50-1.40 One Over Creatinine 1.40 BUN/Creatinine Ratio 15.7 8-20 Calcium 8.7 mg/dL 8.1-9.9 58 eGFR Non- 118.2 > 60 eGFR 143.0 > 60 59 Microalbumin Random Urine 12/22/2008 Microalbumin (MG/L) 19.0 mg/L Urine Creatinine 163.28 mg/dL [place]/Creatinine Ratio 11.6 UG/MG Less Than 30 60 Laboratory test finding 08/31/2008 PSA,Diagnostic 0.59 NG/ML 0-4 61 Laboratory test finding 06/07/2008 Hemoglobin A1c 5.9 % <6.0 62 Alt (SGPT) 12 U/L Low 17-63 Lipid Profile (Trig/Chol/HDL) 06/07/2008 Triglyceride 71 mg/dL 40-200 Cholesterol 115 mg/dL Less Than 200 63 High Density Lipoprotein 40 mg/dL 40-60 64 Cholesterol/HDL Ratio 2.88 AVERAGE 1-4.97 Low Density Lipoprotein 61 mg/dL Less Than 100 65 Basic Metabolic Panel 06/07/2008 Sodium 140 mmol/L 135-145 Potassium 4.6 mmol/L 3.5-5.0 Chloride 105 mmol/L 101-111 Co2 (Carbon Dioxide) 33.0 mmol/L High 22-32 Anion Gap 2.0 mmol/L 2-11 66 Glucose 91 mg/dL 70-100 67 BUN 11 mg/dL 6-24 Creatinine 0.80 mg/dL 0.50-1.40 One Over Creatinine 1.20 BUN/Creatinine Ratio 13.8 8-20 Calcium 8.7 mg/dL 8.1-9.9 68 Laboratory test finding 11/23/2007 Hemoglobin A1c 5.6 % <6.0 69, 70 Lipid Profile (Trig/Chol/HDL) 11/23/2007 Triglyceride 80 mg/dL 40-200 69 Cholesterol 122 mg/dL Less Than 200 69, 71 High Density Lipoprotein 40 mg/dL 40-60 69, 72 Cholesterol/HDL Ratio 3.05 AVERAGE 1-4.97 69 Low Density Lipoprotein 66 mg/dL Less Than 100 69, 73 Laboratory test finding 11/23/2007 Alt (SGPT) 15 U/L Low 17-63 69 Basic Metabolic Panel 11/23/2007 Sodium 142 mmol/L 135-145 69 Potassium 4.6 mmol/L 3.5-5.0 69 Chloride 105 mmol/L 101-111 69 Co2 (Carbon Dioxide) 31.0 mmol/L 22-32 69 Anion Gap 6.0 mmol/L 2-11 69, 74 Glucose 90 mg/dL 70-105 69 BUN 18 mg/dL 6-24 69 Creatinine 0.9 mg/dL 0.5-1.4 69 One Over Creatinine 1.11 69 BUN/Creatinine Ratio 20.0 8-20 69 Calcium 8.8 mg/dL 8.1-9.9 69, 75 Laboratory test finding 09/01/2007 PSA Screening 0.64 NG/ML 0-4 Surgical Pathology 07/19/2007 Surgical Pathology Tubular Adenoma 76 (Colon) Basic Metabolic Panel 05/26/2007 One Over Creatinine 1.25 69 Anion Gap 3.0 mmol/L 2-11 69, 77 BUN 13 mg/dL 6-24 69 Calcium 8.9 mg/dL 8.7-10.2 69 Chloride 103 mmol/L 101-111 69 Co2 (Carbon Dioxide) 34.0 mmol/L High 22-32 69 Glucose 92 mg/dL 70-105 69 Potassium 4.8 mmol/L 3.5-5.0 69 Sodium 140 mmol/L 135-145 69 BUN/Creatinine Ratio 16.3 8-20 69 Creatinine 0.8 mg/dL 0.5-1.4 69 Laboratory test finding 05/26/2007 Alt (SGPT) 14 U/L Low 17-63 69 Lipid Profile 05/26/2007 Cholesterol/HDL Ratio 3.06 AVERAGE 1-4.97 69 (Trig/Chol/HDL) Cholesterol 107 mg/dL Less Than 200 69, 78 Triglyceride 69 mg/dL 40-200 69 High Density Lipoprotein 35 mg/dL Low 40-60 69, 79 Low Density Lipoprotein 58 mg/dL Less Than 100 69, 80 Laboratory test 05/26/2007 Hemoglobin A1c 5.5 % <6.0 69, 81 finding Laboratory test 09/02/2006 PSA Screening 0.30 NG/ML 0.01-4.0 82 finding Urine Microalbumin 08/26/2006 [place]/Creatinine 5.4 UG/MG Less Than 30 83 Creatinine Ratio Ratio Urine Creatinine 130.0 mg/dL Microalbumin (MG/L) 7.0 mg/L Basic Metabolic Panel 08/26/2006 One Over Creatinine 1.25 Anion Gap 3.0 mmol/L 2-11 84 BUN 13 mg/dL 6-24 Calcium 8.7 mg/dL 8.7-10.2 Chloride 106 mmol/L 101-111 Co2 (Carbon Dioxide) 33.0 mmol/L High 22-32 Glucose 86 mg/dL 70-105 Potassium 4.2 mmol/L 3.5-5.0 Sodium 142 mmol/L 135-145 BUN/Creatinine Ratio 16.3 8-20 Creatinine 0.8 mg/dL 0.5-1.4 Lipid Profile 08/26/2006 Cholesterol/HDL Ratio 2.89 AVERAGE 1-4.97 (Trig/Chol/HDL) Cholesterol 110 mg/dL Less Than 200 85 Triglyceride 54 mg/dL 40-200 High Density Lipoprotein 38 mg/dL Low 40-60 86 Low Density Lipoprotein 61 mg/dL Less Than 100 87 Laboratory test finding 08/26/2006 Alt (SGPT) 17 U/L 17-63 Hemoglobin A1c 5.8 % <6.0 88 Basic Metabolic Panel 02/16/2006 One Over Creatinine 1.11 Anion Gap 5.0 mmol/L 2-11 89 BUN 19 mg/dL 6-24 Calcium 8.8 mg/dL 8.7-10.2 Chloride 103 mmol/L 101-111 Co2 (Carbon Dioxide) 32.0 mmol/L 22-32 Glucose 123 mg/dL High 70-105 Potassium 4.3 mmol/L 3.5-5.0 Sodium 140 mmol/L 135-145 BUN/Creatinine Ratio 21.1 High 8-20 Creatinine 0.9 mg/dL 0.5-1.4 Basic Metabolic Panel 01/13/2006 One Over Creatinine 1.25 Anion Gap 3.0 mmol/L 2-11 90 BUN 15 mg/dL 6-24 Calcium 8.5 mg/dL Low 8.7-10.2 Chloride 105 mmol/L 101-111 Co2 (Carbon Dioxide) 33.0 mmol/L High 22-32 Glucose 102 mg/dL 70-105 Potassium 4.3 mmol/L 3.5-5.0 Sodium 141 mmol/L 135-145 BUN/Creatinine Ratio 18.8 8-20 Creatinine 0.8 mg/dL 0.5-1.4 Basic Metabolic Panel 10/13/2005 One Over Creatinine 1.42 69 Anion Gap 6.0 mmol/L 2-11 69, 91 BUN 10 mg/dL 6-24 69 Calcium 8.8 mg/dL 8.7-10.2 69 Chloride 103 mmol/L 101-111 69 Co2 (Carbon Dioxide) 31.0 mmol/L 22-32 69 Glucose 91 mg/dL 70-105 69 Potassium 4.5 mmol/L 3.5-5.0 69 Sodium 140 mmol/L 135-145 69 BUN/Creatinine Ratio 14.3 8-20 69 Creatinine 0.7 mg/dL 0.5-1.4 69 Laboratory test finding 10/13/2005 Hemoglobin A1c 5.5 % <6.0 69, 92 Lipid Profile 10/13/2005 Cholesterol 101 mg/dL Less Than 200 69, 93 (Trig/Chol/HDL) Triglyceride 65 mg/dL 40-200 69 High Density Lipoprotein 37 mg/dL Low 40-60 69, 94 Low Density Lipoprotein 51 mg/dL Less Than 100 69, 95 Cholesterol/HDL Ratio 2.73 AVERAGE 1-4.97 69 Laboratory test finding 10/13/2005 Alt (SGPT) 17 U/L 17-63 69 Laboratory test finding 02/22/2005 Hemoglobin A1c 5.4 BMP - Basic Metabolic Panel 02/22/2005 Calcium 8.9 Creatinine 0.8 Sodium 139 Carbon Dioxide 27.0 Glucose Serum 93 Chloride 103 Potassium 3.8 BUN - Urea Nitrogen 12 Laboratory test finding 02/22/2005 Alt - SGPT 13 Lipid Panel 02/22/2005 Cholesterol Total 96 Cholesterol/HDL Ratio 2.82 High Density Lipoprotein 34 LDL Low Density Lipoprotein 53 Triglycerides 44 Basic Metabolic Panel 02/13/2005 One Over Creatinine 1.11 96 Anion Gap 11.0 mmol/L 2-11 96, 97 BUN 14 mg/dL 6-24 96 Calcium 9.0 mg/dL 8.7-10.2 96 Chloride 103 mmol/L 101-111 96 Co2 (Carbon Dioxide) 24.0 mmol/L 22-32 96 Glucose 93 mg/dL 70-105 96 Potassium 5.2 mmol/L High 3.5-5.0 96 Sodium 138 mmol/L 135-145 96 BUN/Creatinine Ratio 15.6 8-20 96 Creatinine 0.9 mg/dL 0.5-1.4 96 Basic Metabolic Panel 08/01/2004 Anion Gap 2 mmol/L 2-11 98 BUN 14 mg/dL 6-24 Calcium 8.8 mg/dL 8.7-10.2 Chloride 103 mmol/L 101-111 Co2 (Carbon Dioxide) 33 mmol/L High 22-32 Creatinine 0.8 mg/dL 0.5-1.4 Glucose 104 mg/dL 70-105 Potassium 4.4 mmol/L 3.5-5.0 Sodium 138 mmol/L 135-145 BUN/Creatinine Ratio 17.5 8-20 Laboratory test finding 08/01/2004 Hemoglobin A1c 5.3 % <6.0 99 Lipid Profile 08/01/2004 Cholesterol/HDL Ratio 2.90 AVERAGE 1-4.97 (Trig/Chol/HDL) Cholesterol 145 mg/dL Less Than 200 100 Triglyceride 89 mg/dL 40-200 High Density Lipoprotein 50 mg/dL 40-60 Low Density Lipoprotein 77 mg/dL Less Than 100 101 Laboratory test finding 08/01/2004 Alt (SGPT) 26 U/L 17-63 CBC With Electronic Diff 01/24/2004 White Blood Count 5.8 CUMM 4.8-10.8 Abs Basophils 0 0-0.2 Abs Eosinophils 0.1 0-0.6 Abs Grans 3.4 1.5-7.7 Abs Lymphs 1.9 1.0-4.8 Abs Mononuclear 0.4 0-0.8 Basophil % 0.4 % 0-2 Hematocrit 41 % Low 42-52 Hemoglobin 14.6 g/dL 14.0-18.0 Eosinophil % 1.4 % 0-6 Gran % 58.4 % 38-83 Lymph % 33.4 % 20-45 Mean Corpuscular HGB Cone 35 g/dL 32-36 Mean Corpuscular Hemoglob 32 pg High 27-31 Mean Corpuscular Volume 91 um3 80-94 Mean Platelet Volume 8.1 um3 7.4-10.4 Mononuclear % 6.4 % 1-9 Platelet Count 200 CUMM 150-450 Red Cell Count 4.53 CUMM Low 4.6-6.2 Redcell Distribution WDTH 13 % 10.5-15 Laboratory test finding 01/24/2004 Hemoglobin A1c 5.7 % <6.0 102 TSH 1.14 MIU/ML 0.34-5.60 Laboratory test finding 01/24/2004 Alt (SGPT) 28 U/L 17-63 Lipid Profile (Trig/Chol/HDL) 01/24/2004 Cholesterol 116 mg/dL Less Than 200 103 Triglyceride 61 mg/dL 40-200 High Density Lipoprotein 41 mg/dL 40-60 Low Density Lipoprotein 63 mg/dL Less Than 100 104 Cholesterol/HDL Ratio 2.83 AVERAGE 1-4.97 Basic Metabolic Panel 01/24/2004 Anion Gap 2 mmol/L 2-11 105 BUN 14 mg/dL 6-24 Calcium 8.8 mg/dL 8.7-10.2 Chloride 103 mmol/L 101-111 Co2 (Carbon Dioxide) 35 mmol/L High 22-32 Creatinine 0.8 mg/dL 0.5-1.4 Glucose 94 mg/dL 70-105 Potassium 4.5 mmol/L 3.5-5.0 Sodium 140 mmol/L 135-145 BUN/Creatinine Ratio 17.5 8-20 Lipid Profile 08/01/2003 Cholesterol/HDL Ratio 3.49 AVERAGE 1-4.97 (Trig/Chol/HDL) Cholesterol 150 mg/dL Less Than 200 106 Triglyceride 84 mg/dL 40-200 High Density Lipoprotein 43 mg/dL 40-60 Low Density Lipoprotein 90 mg/dL Less Than 100 107 Laboratory test finding 08/01/2003 Alt (SGPT) 28 U/L 17-63 Basic Metabolic Panel 04/25/2003 Anion Gap 4.0 mmol/L 2-11 108 BUN 18 mg/dL 6-24 Calcium 8.9 mg/dL 8.7-10.2 Chloride 106 mmol/L 101-111 Co2 (Carbon Dioxide) 32.0 mmol/L 22-32 Creatinine 0.8 mg/dL 0.5-1.4 Glucose 88 mg/dL 70-105 Potassium 4.6 mmol/L 3.5-5.0 Sodium 142 mmol/L 135-145 BUN/Creatinine Ratio 22.5 High 8-20 Laboratory test finding 04/25/2003 Hemoglobin A1c 5.5 % <6.0 109 Lipid Profile 04/25/2003 Cholesterol/HDL Ratio 4.44 AVERAGE 1-4.97 (Trig/Chol/HDL) Cholesterol 191 mg/dL Less Than 200 110 Triglyceride 76 mg/dL 40-200 High Density Lipoprotein 43 mg/dL 40-60 Low Density Lipoprotein 133 mg/dL High Less Than 100 111 Laboratory test finding 04/25/2003 Alt (SGPT) 25 U/L 17-63 1 Because ethnic data is not always readily available, this report includes an eGFR for both -Americans and non- Americans. The National Kidney Disease Education Program (NKDEP) does not endorse the use of the MDRD equation for patients that are not between the ages of 18 and 70, are , have extremes of body size, muscle mass, or nutritional status, or are non- or non-. According to the National Kidney Foundation, irrespective of diagnosis, the stage of the disease is based on the level of kidney function: Stage Description GFR(mL/min/1.73 m(2)) 1 Kidney damage with normal or decreased GFR 90 2 Kidney damage with mild decrease in GFR 60-89 3 Moderate decrease in GFR 30-59 4 Severe decrease in GFR 15-29 5 Kidney failure <15 (or dialysis) 2 >100 to <200 pg/mL: likely compensated congestive heart failure (CHF) 200 to 400 pg/mL: likely moderate CHF >400 pg/mL: likely moderate to severe CHF 3 [place] Severe Sepsis and Septic Shock Management Bundle Measure requires all lactic acids initially measuring >2.0 mmol/L be repeated. 4 SEE RESULT BELOW Name: PEREZ MCARTHUR : [address]: Elijah Villar MD Acct: [id number] Unit: [id number] AGE: 82 Location: [place] [address] Re10/26/17 Dis: 10/27/17 SEX: M Status: DIS Jam SPEC: [id number] ETTA: 10/25/[address] [facility] [address]: Awais Myers MD REQ: [id number] RECD: 10/25/17 STATUS: RES [facility] DR: Perez Santoyo MD _ SOURCE: BLOOD,VENO SPDESC: ORDERED: Blood Cult Procedure Result Reported Site Aerobic Culture Bottle Preliminary 10/29/17- 2150 ML No Growth Day 4 Anaerobic Culture Bottle Preliminary 10/29/17- 2150 ML No Growth Day 4 * ML - Main Lab . END OF REPORT DEPARTMENT OF PATHOLOGY, [address] [place] [address] Tommy Pelayo M.D. Director [facility] # [id number] 5 Unable to calculate due to low microalbumin 6 void, turbid, yellow 7 Because ethnic data is not always readily available, this report includes an eGFR for both -Americans and non- Americans. The National Kidney Disease Education Program (NKDEP) does not endorse the use of the MDRD equation for patients that are not between the ages of 18 and 70, are , have extremes of body size, muscle mass, or nutritional status, or are non- or non-. According to the National Kidney Foundation, irrespective of diagnosis, the stage of the disease is based on the level of kidney function: Stage Description GFR(mL/min/1.73 m(2)) 1 Kidney damage with normal or decreased GFR 90 2 Kidney damage with mild decrease in GFR 60-89 3 Moderate decrease in GFR 30-59 4 Severe decrease in GFR 15-29 5 Kidney failure <15 (or dialysis) 8 RESULT: No apparent monoclonal protein on serum electrophoresis. Test Performed by: [place] [address] Railroad Accountant: Billy Adair II, M.D., Ph.D. 9 Normal Range 180 to 914 Indeterminate Range 145 to 180 Deficient Range <145 10 void, clear, yellow 11 Because ethnic data is not always readily available, this report includes an eGFR for both -Americans and non- Americans. The National Kidney Disease Education Program (NKDEP) does not endorse the use of the MDRD equation for patients that are not between the ages of 18 and 70, are , have extremes of body size, muscle mass, or nutritional status, or are non- or non-. According to the National Kidney Foundation, irrespective of diagnosis, the stage of the disease is based on the level of kidney function: Stage Description GFR(mL/min/1.73 m(2)) 1 Kidney damage with normal or decreased GFR 90 2 Kidney damage with mild decrease in GFR 60-89 3 Moderate decrease in GFR 30-59 4 Severe decrease in GFR 15-29 5 Kidney failure <15 (or dialysis) 12 Unable to calculate due to low microalbumin 13 void, clear, gold 14 Unable to calculate due to low microalbumin 15 Because ethnic data is not always readily available, this report includes an eGFR for both -Americans and non- Americans. The National Kidney Disease Education Program (NKDEP) does not endorse the use of the MDRD equation for patients that are not between the ages of 18 and 70, are , have extremes of body size, muscle mass, or nutritional status, or are non- or non-. According to the National Kidney Foundation, irrespective of diagnosis, the stage of the disease is based on the level of kidney function: Stage Description GFR(mL/min/1.73 m(2)) 1 Kidney damage with normal or decreased GFR 90 2 Kidney damage with mild decrease in GFR 60-89 3 Moderate decrease in GFR 30-59 4 Severe decrease in GFR 15-29 5 Kidney failure <15 (or dialysis) 16 Because ethnic data is not always readily available, this report includes an eGFR for both -Americans and non- Americans. The National Kidney Disease Education Program (NKDEP) does not endorse the use of the MDRD equation for patients that are not between the ages of 18 and 70, are , have extremes of body size, muscle mass, or nutritional status, or are non- or non-. According to the National Kidney Foundation, irrespective of diagnosis, the stage of the disease is based on the level of kidney function: Stage Description GFR(mL/min/1.73 m(2)) 1 Kidney damage with normal or decreased GFR 90 2 Kidney damage with mild decrease in GFR 60-89 3 Moderate decrease in GFR 30-59 4 Severe decrease in GFR 15-29 5 Kidney failure <15 (or dialysis) 17 Microalbuminuria in a random sample is defined as: Microalbumin/Creatinine ratio of 30-299 ug/mg. 18 RUN DATE: 09/20/12 [facility] LAB LIVE PAGE 1 RUN TIME: [address] [place] [id number] Specimen Inquiry Name: PEREZ MCARTHUR : [address]: Marcial Rogers MD Acct: [id number] Unit: [id number] AGE: 77 Location: [facility] Re09/16/12 SEX: M Status: REG REF SPEC: [id number] ETTA: 09/16/12- SUBM DR: Marcial Rogers MD REQ: [id number] RECD: 09/16/121629 STATUS: [facility] DR: Perez Santoyo MD _ ORDERED: LEVEL IV/2 FINAL DIAGNOSIS 1. Colon, ascending, biopsy: A. Tubular adenoma. B. No high grade dysplasia or malignancy. 2. Colon, ascending, biopsy: Hyperplastic change. CLINICAL HISTORY Screening colonoscopy with history of colon polyps (2007) POST-OPERATIVE DIAGNOSIS Screening colonoscopy into cecum, prep good - small right colon polyp removed , subtle thickening along a fold in left colon, biopsied GROSS DESCRIPTION 1. The specimen is received in formalin labeled Perez Mcarthur, Biopsy Ascending Colon Polyp, and consists of two jovel, soft tissue fragments measuring 0.6 x 0.3 x 0.2 cm. Submitted entirely, one cassette. 2. The specimen is received in formalin labeled Perez Mcarthur, Ascending Colon Thickened Fold, and consists of two jovel, soft tissue fragments measuring 0.7 x 0.2 x 0.2 cm. Submitted entirely, one cassette. Signed (signature on file) Tommy Pelayo MD 1609 END OF REPORT * ML=Testing performed at Main Lab DEPARTMENT OF PATHOLOGY, [address] [place] [address] Tommy Pelayo M.D. Director [facility] Permit #[id number] 19 Because ethnic data is not always readily available, this report includes an eGFR for both -Americans and non- Americans. The National Kidney Disease Education Program (NKDEP) does not endorse the use of the MDRD equation for patients that are not between the ages of 18 and 70, are , have extremes of body size, muscle mass, or nutritional status, or are non- or non-. According to the National Kidney Foundation, irrespective of diagnosis, the stage of the disease is based on the level of kidney function: Stage Description GFR(mL/min/1.73 m(2)) 1 Kidney damage with normal or decreased GFR 90 2 Kidney damage with mild decrease in GFR 60-89 3 Moderate decrease in GFR 30-59 4 Severe decrease in GFR 15-29 5 Kidney failure <15 (or dialysis) 20 -- REFERENCE VALUE -- 25-HYDROXY D TOTAL (D2+D3) Optimum levels in the normal population are 25-80 Test Performed by: [place] [address] Railroad Accountant: Jorden Krishna III, M.D. 21 Microalbuminuria in a random sample is defined as: Microalbumin/Creatinine ratio of 30-299 ug/mg. 22 Because ethnic data is not always readily available, this report includes an eGFR for both -Americans and non- Americans. The National Kidney Disease Education Program (NKDEP) does not endorse the use of the MDRD equation for patients that are not between the ages of 18 and 70, are , have extremes of body size, muscle mass, or nutritional status, or are non- or non-. According to the National Kidney Foundation, irrespective of diagnosis, the stage of the disease is based on the level of kidney function: Stage Description GFR(mL/min/1.73 m(2)) 1 Kidney damage with normal or decreased GFR 90 2 Kidney damage with mild decrease in GFR 60-89 3 Moderate decrease in GFR 30-59 4 Severe decrease in GFR 15-29 5 Kidney failure <15 (or dialysis) 23 Desirable: Less than 200 MG/DL Borderline-High Risk: 200-239 MG/DL High-Risk: 240 MG/DL and over 24 HDL Interpretation: Undesirable: High Risk: Less than 40 MG/DL Desirable: Low Risk: Greater than 60 MG/DL 25 COMMENTS: 26 Lymphopenia % 27 Anion gap measurement may be of limited value in the presence of any alkalosis, especially in a combined acid base disorder. . 28 A metabolite of Naproxen, O-desmethylnaproxen, has been shown to interfere with the Jendrassik-Kittanning method for measuring total bilirubin. Samples from patients who have taken Naproxen have shown spurious elevation in total bilirubin levels. 29 Because ethnic data is not always readily available, this report includes an eGFR for both -Americans and non- Americans. The National Kidney Disease Education Program (NKDEP) does not endorse the use of the MDRD equation for patients that are not between the ages of 18 and 70, are , have extremes of body size, muscle mass, or nutritional status, or are non- or non-. According to the National Kidney Foundation, irrespective of diagnosis, the stage of the disease is based on the level of kidney function: Stage Description GFR(mL/min/1.73 m(2)) 1 Kidney damage with normal or decreased GFR 90 2 Kidney damage with mild decrease in GFR 60-89 3 Moderate decrease in GFR 30-59 4 Severe decrease in GFR 15-29 5 Kidney failure <15 (or dialysis) 30 New Reference Range and Interpretation effective 01/21/2002 TnI (ng/ml) INTERPRETATION Less Than 0.06 ng/mL NOT SUPPORTIVE OF DIAGNOSIS OF [place] 0.06 - 0.50 ng/ml INDETERMINATE: SUGGEST SERIAL STUDIES IF CLINICALLY INDICATED. Greater than 0.5 ng/mL CONSISTENT WITH DIAGNOSIS OF [place] . 31 * SERUM LEVELS OF PSA MEASURED USING THE [employer] ACCESS HYBRITECH IMMUNOASSAY SHOULD NOT BE INTERPRETED ABSOLUTE EVIDENCE OF THE PRESENCE OR ABSENCE OF DISEASE. THE PSA VALUE SHOULD BE USED IN CONJUNCTION WITH OTHER PERTINENT CLINICAL DIAGNOSTIC PROCEDURES. A PSA value in the range of 0.1 to 0.6 ng/ml is indeterminate if being used as an indicator of recurrent or residual disease. . 32 CHOLESTEROL INTERPRETATION: Desirable: Less than 200 MG/DL Borderline-High Risk: 200-239 MG/DL High-Risk: 240 MG/DL and over 33 HDL INTERPRETATION: Undesirable: High Risk: Less than 40 MG/DL Desirable: Low Risk: Greater than 60 MG/DL 34 LDL INTERPRETATION: Low Risk Optimal Level: LDL Less than 100 MG/DL Near or Above Optimal: LDL 100-129 MG/DL Borderline High Risk: LDL 130-159 MG/DL High Risk: LDL 160-189 MG/DL Very High Risk: LDL Greater than 189 MG/DL 35 MICROALBUMINURIA IN A RANDOM SAMPLE IS DEFINED : MICROALBUMIN/CREATININE RATIO OF 30-299 ug/mg. . 36 Anion gap measurement may be of limited value in the presence of any alkalosis, especially in a combined acid base disorder. . 37 Because ethnic data is not always readily available, this report includes an eGFR for both -Americans and non- Americans. The National Kidney Disease Education Program (NKDEP) does not endorse the use of the MDRD equation for patients that are not between the ages of 18 and 70, are , have extremes of body size, muscle mass, or nutritional status, or are non- or non-. According to the National Kidney Foundation, irrespective of diagnosis, the stage of the disease is based on the level of kidney function: Stage Description GFR(mL/min/1.73 m(2)) 1 Kidney damage with normal or decreased GFR 90 2 Kidney damage with mild decrease in GFR 60-89 3 Moderate decrease in GFR 30-59 4 Severe decrease in GFR 15-29 5 Kidney failure <15 (or dialysis) 38 THERAPEUTIC TARGET FOR THE TREATMENT OF DIABETES MELLITUS PATIENTS IS <7% HBA1C, AND IN SELECTIVE PATIENTS <6.0%. PLEASE REFER TO [place] DIABETIC CARE GUIDELINES FOR FURTHER INFORMATION. 39 CHOLESTEROL INTERPRETATION: Desirable: Less than 200 MG/DL Borderline-High Risk: 200-239 MG/DL High-Risk: 240 MG/DL and over 40 HDL INTERPRETATION: Undesirable: High Risk: Less than 40 MG/DL Desirable: Low Risk: Greater than 60 MG/DL 41 LDL INTERPRETATION: Low Risk Optimal Level: LDL Less than 100 MG/DL Near or Above Optimal: LDL 100-129 MG/DL Borderline High Risk: LDL 130-159 MG/DL High Risk: LDL 160-189 MG/DL Very High Risk: LDL Greater than 189 MG/DL 42 MICROALBUMINURIA IN A RANDOM SAMPLE IS DEFINED : MICROALBUMIN/CREATININE RATIO OF 30-299 ug/mg. . 43 Anion gap measurement may be of limited value in the presence of any alkalosis, especially in a combined acid base disorder. . 44 Note change in reference range as of 12/09/07. The change was based on recommendations from the [place] [employer]. 45 Please note change in reference range effective 07 . 46 Because ethnic data is not always readily available, this report includes an eGFR for both -Americans and non- Americans. The National Kidney Disease Education Program (NKDEP) does not endorse the use of the MDRD equation for patients that are not between the ages of 18 and 70, are , have extremes of body size, muscle mass, or nutritional status, or are non- or non-. According to the National Kidney Foundation, irrespective of diagnosis, the stage of the disease is based on the level of kidney function: Stage Description GFR(mL/min/1.73 m(2)) 1 Kidney damage with normal or decreased GFR 90 2 Kidney damage with mild decrease in GFR 60-89 3 Moderate decrease in GFR 30-59 4 Severe decrease in GFR 15-29 5 Kidney failure <15 (or dialysis) 47 THERAPEUTIC TARGET FOR THE TREATMENT OF DIABETES MELLITUS PATIENTS IS <7% HBA1C, AND IN SELECTIVE PATIENTS <6.0%. PLEASE REFER TO [employer] DIABETIC CARE GUIDELINES FOR FURTHER INFORMATION. 48 CHOLESTEROL INTERPRETATION: Desirable: Less than 200 MG/DL Borderline-High Risk: 200-239 MG/DL High-Risk: 240 MG/DL and over 49 HDL INTERPRETATION: Undesirable: High Risk: Less than 40 MG/DL Desirable: Low Risk: Greater than 60 MG/DL 50 LDL INTERPRETATION: Low Risk Optimal Level: LDL Less than 100 MG/DL Near or Above Optimal: LDL 100-129 MG/DL Borderline High Risk: LDL 130-159 MG/DL High Risk: LDL 160-189 MG/DL Very High Risk: LDL Greater than 189 MG/DL 51 THERAPEUTIC TARGET FOR THE TREATMENT OF DIABETES MELLITUS PATIENTS IS <7% HBA1C, AND IN SELECTIVE PATIENTS <6.0%. PLEASE REFER TO [employer] DIABETIC CARE GUIDELINES FOR FURTHER INFORMATION. 52 THERAPEUTIC TARGET FOR THE TREATMENT OF DIABETES MELLITUS PATIENTS IS <7% HBA1C, AND IN SELECTIVE PATIENTS <6.0%. PLEASE REFER TO [employer] DIABETIC CARE GUIDELINES FOR FURTHER INFORMATION. 53 CHOLESTEROL INTERPRETATION: Desirable: Less than 200 MG/DL Borderline-High Risk: 200-239 MG/DL High-Risk: 240 MG/DL and over 54 HDL INTERPRETATION: Undesirable: High Risk: Less than 40 MG/DL Desirable: Low Risk: Greater than 60 MG/DL 55 LDL INTERPRETATION: Low Risk Optimal Level: LDL Less than 100 MG/DL Near or Above Optimal: LDL 100-129 MG/DL Borderline High Risk: LDL 130-159 MG/DL High Risk: LDL 160-189 MG/DL Very High Risk: LDL Greater than 189 MG/DL 56 Anion gap measurement may be of limited value in the presence of any alkalosis, especially in a combined acid base disorder. . 57 Note change in reference range as of 12/09/07. The change was based on recommendations from the [place] [employer]. 58 Please note change in reference range effective 07 . 59 Because ethnic data is not always readily available, this report includes an eGFR for both -Americans and non- Americans. The National Kidney Disease Education Program (NKDEP) does not endorse the use of the MDRD equation for patients that are not between the ages of 18 and 70, are , have extremes of body size, muscle mass, or nutritional status, or are non- or non-. According to the National Kidney Foundation, irrespective of diagnosis, the stage of the disease is based on the level of kidney function: Stage Description GFR(mL/min/1.73 m(2)) 1 Kidney damage with normal or decreased GFR 90 2 Kidney damage with mild decrease in GFR 60-89 3 Moderate decrease in GFR 30-59 4 Severe decrease in GFR 15-29 5 Kidney failure <15 (or dialysis) 60 MICROALBUMINURIA IN A RANDOM SAMPLE IS DEFINED : MICROALBUMIN/CREATININE RATIO OF 30-299 ug/mg. . 61 * SERUM LEVELS OF PSA MEASURED USING THE [employer] ACCESS HYBRITECH IMMUNOASSAY SHOULD NOT BE INTERPRETED ABSOLUTE EVIDENCE OF THE PRESENCE OR ABSENCE OF DISEASE. THE PSA VALUE SHOULD BE USED IN CONJUNCTION WITH OTHER PERTINENT CLINICAL DIAGNOSTIC PROCEDURES. A PSA value in the range of 0.1 to 0.6 ng/ml is indeterminate if being used as an indicator of recurrent or residual disease. . 62 THERAPEUTIC TARGET FOR THE TREATMENT OF DIABETES MELLITUS PATIENTS IS <7% HBA1C, AND IN SELECTIVE PATIENTS <6.0%. PLEASE REFER TO [employer] DIABETIC CARE GUIDELINES FOR FURTHER INFORMATION. 63 CHOLESTEROL INTERPRETATION: Desirable: Less than 200 MG/DL Borderline-High Risk: 200-239 MG/DL High-Risk: 240 MG/DL and over 64 HDL INTERPRETATION: Undesirable: High Risk: Less than 40 MG/DL Desirable: Low Risk: Greater than 60 MG/DL 65 LDL INTERPRETATION: Low Risk Optimal Level: LDL Less than 100 MG/DL Near or Above Optimal: LDL 100-129 MG/DL Borderline High Risk: LDL 130-159 MG/DL High Risk: LDL 160-189 MG/DL Very High Risk: LDL Greater than 189 MG/DL 66 Anion gap measurement may be of limited value in the presence of any alkalosis, especially in a combined acid base disorder. . 67 Note change in reference range as of 12/09/07. The change was based on recommendations from the [employer]. 68 Please note change in reference range effective 07 . 69 FASTING 70 THERAPEUTIC TARGET FOR THE TREATMENT OF DIABETES MELLITUS PATIENTS IS <7% HBA1C, AND IN SELECTIVE PATIENTS <6.0%. PLEASE REFER TO [employer] DIABETIC CARE GUIDELINES FOR FURTHER INFORMATION. 71 CHOLESTEROL INTERPRETATION: Desirable: Less than 200 MG/DL Borderline-High Risk: 200-239 MG/DL High-Risk: 240 MG/DL and over 72 HDL INTERPRETATION: Undesirable: High Risk: Less than 40 MG/DL Desirable: Low Risk: Greater than 60 MG/DL 73 LDL INTERPRETATION: Low Risk Optimal Level: LDL Less than 100 MG/DL Near or Above Optimal: LDL 100-129 MG/DL Borderline High Risk: LDL 130-159 MG/DL High Risk: LDL 160-189 MG/DL Very High Risk: LDL Greater than 189 MG/DL 74 Anion gap measurement may be of limited value in the presence of any alkalosis, especially in a combined acid base disorder. . 75 Please note change in reference range effective 07 . 76 ---- RUN DATE: 07/21/07 [facility] NMI LIVE PAGE 1 RUN TIME: 47 Specimen Inquiry RUN USER: INTERFACE [id number] PEREZ MCARTHUR 72/M <REG REF 07/18> ([id number]) CHRISTIANO Rogers MD, Marcial Phillip -- Specimen: [id number] SOUT Spec Date: 07/19/[address]: Marcial maier MD Spec Type: SURGICAL P Received: 07/19/07-5199 Copies to: Perez Santoyo MD SPECIMEN BIOPSY RIGHT COLON POLYP HISTORY POST-OP DIAGNOSIS: Small polyp CLINICAL INFORMATION: Patient for follow-up polyps (2002) GROSS DESCRIPTION The specimen is received in formalin labelled Perez Mcarthur, Biopsy Right Colon Polyp, and consists of two, jovel, soft tissue fragments measuring 0.7 x 0.6 x 0.3 cm. in aggregate. Submitted entirely, one cassette. DIAGNOSIS Colon, right, biopsy - A) Tubular adenoma. B) No high grade dysplasia or malignancy. Signed Electronically by: TOMMY PELAYO MD 07/21/07 0947 -- -- DEPARTMENT OF PATHOLOGY, [address] [place] [address] [facility] Permit #[id number] Tommy Pelayo M.D. Director of Laboratories -- 77 Anion gap measurement may be of limited value in the presence of any alkalosis, especially in a combined acid base disorder. . 78 Classification: Desirable . 79 Classification: Low . 80 CALCULATED LDL APPROXIMATES THE VALUE OF A DIRECT LDL MEASUREMENT. Classification: Optimal Level . 81 THERAPEUTIC TARGET FOR THE TREATMENT OF DIABETES MELLITUS PATIENTS IS <7% HBA1C, AND IN SELECTIVE PATIENTS <6.0%. PLEASE REFER TO [employer] DIABETIC CARE GUIDELINES FOR FURTHER INFORMATION. 82 * SERUM LEVELS OF PSA MEASURED USING THE [employer] ACCESS HYBRITECH IMMUNOASSAY SHOULD NOT BE INTERPRETED ABSOLUTE EVIDENCE OF THE PRESENCE OR ABSENCE OF DISEASE. THE PSA VALUE SHOULD BE USED IN CONJUNCTION WITH OTHER PERTINENT CLINICAL DIAGNOSTIC PROCEDURES. A PSA value in the range of 0.1 to 0.6 ng/ml is indeterminate if being used as an indicator of recurrent or residual disease. . 83 MICROALBUMINURIA IN A RANDOM SAMPLE IS DEFINED : MICROALBUMIN/CREATININE RATIO OF 30-299 ug/mg. . 84 Anion gap measurement may be of limited value in the presence of any alkalosis, especially in a combined acid base disorder. . 85 Classification: Desirable . 86 Classification: Low . 87 CALCULATED LDL APPROXIMATES THE VALUE OF A DIRECT LDL MEASUREMENT. Classification: Optimal Level . 88 THERAPEUTIC TARGET FOR THE TREATMENT OF DIABETES MELLITUS PATIENTS IS <7% HBA1C, AND IN SELECTIVE PATIENTS <6.0%. PLEASE REFER TO [employer] DIABETIC CARE GUIDELINES FOR FURTHER INFORMATION. 89 Anion gap measurement may be of limited value in the presence of any alkalosis, especially in a combined acid base disorder. . 90 Anion gap measurement may be of limited value in the presence of any alkalosis, especially in a combined acid base disorder. . 91 Anion gap measurement may be of limited value in the presence of any alkalosis, especially in a combined acid base disorder. . 92 THERAPEUTIC TARGET FOR THE TREATMENT OF DIABETES MELLITUS PATIENTS IS <7% HBA1C, AND IN SELECTIVE PATIENTS <6.0%. PLEASE REFER TO [employer] DIABETIC CARE GUIDELINES FOR FURTHER INFORMATION. 93 Classification: Desirable . 94 Classification: Low . 95 CALCULATED LDL APPROXIMATES THE VALUE OF A DIRECT LDL MEASUREMENT. Classification: Optimal Level . 96 DIFFICULT DRAW, 2 SHORT TUBES SENT 97 Anion gap measurement may be of limited value in the presence of any alkalosis, especially in a combined acid base disorder. . 98 Anion gap measurement may be of limited value in the presence of any alkalosis, especially in a combined acid base disorder. . 99 THERAPEUTIC TARGET FOR THE TREATMENT OF DIABETES MELLITUS PATIENTS IS <7% HBA1C, AND IN SELECTIVE PATIENTS <6.0%. PLEASE REFER TO [place] DIABETIC CARE GUIDELINES FOR FURTHER INFORMATION. 100 Classification: Desirable . 101 CALCULATED LDL APPROXIMATES THE VALUE OF A DIRECT LDL MEASUREMENT. Classification: Optimal Level . 102 THERAPEUTIC TARGET FOR THE TREATMENT OF DIABETES MELLITUS PATIENTS IS <7% HBA1C. [employer] DIABETES CARE 2002;25:S33-S49. 103 Classification: Desirable . 104 CALCULATED LDL APPROXIMATES THE VALUE OF A DIRECT LDL MEASUREMENT. Classification: Optimal Level . 105 Anion gap measurement may be of limited value in the presence of any alkalosis, especially in a combined acid base disorder. . 106 Classification: Desirable . 107 CALCULATED LDL APPROXIMATES THE VALUE OF A DIRECT LDL MEASUREMENT. Classification: Optimal Level . 108 Anion gap measurement may be of limited value in the presence of any alkalosis, especially in a combined acid base disorder. . 109 THERAPEUTIC TARGET FOR THE TREATMENT OF DIABETES MELLITUS PATIENTS IS <7% HBA1C. [employer] DIABETES CARE 2002;25:S33-S49. . 110 Classification: Desirable . 111 CALCULATED LDL APPROXIMATES THE VALUE OF A DIRECT LDL MEASUREMENT. Classification: Borderline High . 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 06/20/2015 55028 Destruction Of Skin Lesions Up Completed To 14 Flat Warts/Molluscum Contag 06/20/2015 73050 Destruction Premalignant Skin Completed Lesions 01/31/2013 33001 Bronchospasm Evaluation Pre & Completed Post 10/20/2012 77988 Electrocardiogram Complete Completed 10/20/2012 27120 X-Ray Chest Two Views Completed 08/03/2012 92238 X-Ray Chest Two Views Completed 08/03/2012 12147 Oximetry, Multiple Completed Determinations (Eg, During Exercise) 05/27/2011 27127 ECG Monitor/Review & Completed Interpretation, W/Visual Superimpos Scan 05/27/2011 73878 ECG Monitor/Recording Completed W/Scanning 09/25/2008 72074 X-Ray Chest Two Views Completed 06/27/2005 42257 X-Ray Chest Two Views Completed 04/01/2005 82419 EKG Interpretation & Report Completed Only 03/25/2005 21065 Electrocardiogram Complete Completed 03/25/2005 59632 X-Ray Chest Two Views Completed 03/18/2005 86485 EKG Interpretation & Report Completed Only 01/28/2005 30996 X-Ray Chest Two Views Completed 08/20/2004 46656 Electrocardiogram Complete Completed 11/06/2003 90860 Electrocardiogram Complete Completed Encounters Type Date Location Provider CPT E/M Dx Office Visit 10/30/2017 1:30p Main Office Perez Santoyo M.D. 31865 J18.9 A69.20 I10 E11.40 Office Visit 08/14/2017 11:45a Main Office Perez Santoyo M.D. 30687 E11.40 R29.6 I10 M48.061 Z23 R51 R53.83 Z86.010 Z13.89 Office Visit 05/09/2017 11:00a [place] [address] R10.31 Office Visit 01/12/2017 12:55p Main Office Perez Santoyo M.D. 91286 I10 M48.06 E11.40 Z23 M21.372 Office Visit 11/07/2016 4:15p Main Office Perez Santoyo M.D. 73373 E11.40 H92.01 I10 R10.31 Office Visit 10/02/2016 11:30a Main Office Ru Mckeon D.O. 24626 M48.06 E11.40 I10 Office Visit 08/12/2016 12:55p Main Office Perez Santoyo M.D. 10871 L97.529 E11.40 M48.06 Office Visit 07/08/2016 8:30a Main Office Perez Santoyo M.D. 54359 E11.40 M48.06 M54.5 M79.604 M79.605 N31.2 I10 I25.10 Office Visit 05/19/2016 2:30p Main Office Perez Santoyo M.D. 28833 R39.198 R30.0 R33.9 M48.06 M54.5 Office Visit 04/29/2016 2:45p Main Office ePrez Santoyo M.D. 82988 M43.06 M51.16 Office Visit 04/10/2016 11:40a Main Office Billy Morfin M.D. 89162 M54.5 M79.605 M62.562 Office Visit 02/12/2016 1:15p Main Office Perez Santoyo M.D. 63188 E11.40 I10 I25.10 Z23 Z41.8 Office Visit 01/18/2016 1:30p Main Office Perez Santoyo M.D. 02255 J06.9 Office Visit 10/08/2015 3:00p Main Office Perez Santoyo M.D. 34658 M54.5 E11.40 I10 I25.10 Office Visit 06/20/2015 11:00a Main Office Perez Santoyo M.D. 43396 E11.40 M54.5 I10 I25.10 L57.0 B07.9 Office Visit 05/11/2015 2:00p Main Office Perez Santoyo M.D. 67642 E11.40 M79.605 M79.604 M54.5 Office Visit 03/14/2015 9:30a Main Office Perez Santoyo M.D. 56516 E11.40 I10 I25.10 G25.0 R41.3 M79.605 M79.604 L03.031 Office Visit 01/19/2015 9:45a Main Office Perez Santoyo M.D. 27032 R41.3 R41.82 G25.0 Z23 Z41.8 I10 Office Visit 01/05/2015 9:30a Main Office Perez Santoyo M.D. 48364 E11.40 G25.0 I10 I25.10 Z23 Z41.8 Office Visit 09/19/2014 2:30p Main Office Perez Santoyo M.D. 29754 250.60 401.1 724.4 357.2 250.00 Office Visit 08/19/2014 10:15a Main Office Perez Santoyo M.D. 01702 724.2 729.5 724.4 Office Visit 07/31/2014 10:15a Main Office Perez Santoyo M.D. 52100 401.1 729.5 724.2 780.4 Office Visit 07/03/2014 11:30a Main Office Perez Santoyo M.D. 82631 250.60 401.1 414.00 357.2 729.2 V06.1 250.00 V07.2 Office Visit 02/01/2014 10:45a Main Office Perez Santoyo M.D. 10269 401.1 414.00 250.60 357.2 Office Visit 12/07/2013 9:15a Main Office Perez Santoyo M.D. 02886 250.60 401.1 414.00 357.2 250.00 Office Visit 07/04/2013 12:55p Main Office Perez Santoyo M.D. 82555 723.1 Office Visit 06/08/2013 1:45p Main Office Perez Santoyo M.D. 50270 250.60 401.1 414.00 333.1 357.2 Office Visit 01/31/2013 10:15a Main Office Perez Santoyo M.D. 83909 250.60 786.09 492.8 729.6 401.1 414.00 333.1 357.2 v07.2 v04.81 Office Visit 12/01/2012 11:15a Main Office Perez Santoyo M.D. 56794 250.60 333.1 780.79 786.09 492.8 401.1 414.00 357.2 Office Visit 10/20/2012 11:15a Main Office Perez Santoyo M.D. 84652 250.60 486 333.1 780.79 786.09 414.00 401.1 Office Visit 08/18/2012 9:30a Main Office Perez Santoyo M.D. 35926 486 786.2 Office Visit 08/09/2012 11:30a Main Office Perez Santoyo M.D. 55244 486 786.2 Office Visit 08/03/2012 12:00p Main Office Perez Santoyo M.D. 24320 466.0 486 786.09 Office Visit 07/30/2012 4:15p Main Office Perez Santoyo M.D. 89477 466.0 Office Visit 07/14/2012 11:15a Main Office Perez Santoyo M.D. 62155 780.79 333.1 401.1 250.60 414.00 Office Visit 02/24/2012 10:00a Main Office Perez Santoyo M.D. 45290 250.60 401.1 272.0 414.00 V04.81 V07.2 Office Visit 08/27/2011 8:30a Main Office Perez Santoyo M.D. 55514 250.60 401.1 414.00 272.0 Office Visit 05/27/2011 11:00a Main Office Perez Santoyo M.D. 71539 780.2 401.1 250.60 Office Visit 03/26/2011 10:45a Main Office Perez Santoyo M.D. 71443 250.60 401.1 414.00 272.0 333.1 Office Visit 12/24/2010 11:00a Main Office Perez Santoyo M.D. 01298 401.1 250.60 414.00 272.0 780.79 V04.81 V07.2 Office Visit 09/20/2010 10:30a Main Office Perez Santoyo M.D. 85453 401.1 250.60 414.00 272.0 Office Visit 07/31/2010 10:45a Main Office Perez Santoyo M.D. 10468 401.1 272.0 250.60 414.00 780.79 427.81 Office Visit 04/03/2010 12:55p Main Office Perez Santoyo M.D. 48781 724.4 729.5 272.0 Office Visit 03/04/2010 4:15p Main Office Perez Santoyo M.D. 48538 724.4 729.5 Office Visit 12/26/2009 9:15a Main Office Perez Santoyo M.D. 89224 401.1 250.60 414.00 272.0 V04.81 Office Visit 09/14/2009 2:00p Main Office Stephanie Leigh, P.APepe 89374 401.1 786.2 466.0 461.8 Office Visit 06/27/2009 8:55a Main Office Perez Santoyo M.D. 55943 250.60 401.1 272.0 414.00 333.1 Office Visit 05/21/2009 11:15a Main Office Perez Santoyo M.D. 01861 786.2 466.0 Office Visit 12/26/2008 10:00a Main Office Perez Santoyo M.D. 43875 250.60 401.1 272.0 414.00 333.1 V04.81 Office Visit 10/04/2008 9:15a Main Office Perez Santoyo M.D. 84633 486 250.60 401.1 786.50 Office Visit 09/25/2008 1:15p Main Office Perez Santoyo M.D. 36469 786.2 486 Office Visit 09/20/2008 1:45p Main Office Perez Santoyo M.D. 80683 786.2 465.9 Office Visit 06/09/2008 4:15p Main Office Perez Santoyo M.D. 98751 250.60 272.0 414.00 401.1 Office Visit 02/29/2008 12:55p Main Office Perez Santoyo M.D. 36125 250.60 272.0 414.00 401.1 333.1 786.2 Office Visit 11/29/2007 8:55a Main Office Perez Santoyo M.D. 79799 250.60 272.0 414.00 401.1 786.2 333.1 724.4 Office Visit 08/13/2007 9:30a Main Office Perez Santoyo M.D. 93426 729.5 724.4 Office Visit 07/20/2007 5:00p Main Office Perez Santoyo M.D. 08944 729.5 Office Visit 06/28/2007 3:00p Main Office Perez Santoyo M.D. 09401 729.5 Office Visit 05/31/2007 9:30a Main Office Perez Santoyo M.D. 91095 401.1 414.00 272.0 250.60 786.2 780.93 V76.51 Office Visit 11/27/2006 9:30a Main Office Perez Santoyo M.D. 11954 401.1 414.00 272.0 250.60 V65.49 Office Visit 08/19/2006 9:30a Main Office Perez Santoyo M.D. 32965 401.1 414.00 272.0 250.60 786.2 Office Visit 04/21/2006 8:45a Main Office Perez Santoyo M.D. 23313 401.1 414.00 272.0 250.60 786.2 V03.82 V07.2 Office Visit 02/16/2006 1:30p Main Office Perez Santoyo M.D. 68155 401.1 272.0 414.00 307.47 786.2 465.9 V04.81 Office Visit 01/14/2006 1:30p Main Office Perez Santoyo M.D. 80851 401.1 250.60 272.0 414.00 307.47 786.2 333.1 Office Visit 10/20/2005 12:55p Main Office Perez Santoyo M.D. 06499 401.1 250.60 272.0 Office Visit 09/16/2005 11:00a Main Office Perez Santoyo M.D. 23200 414.00 401.1 786.50 250.60 600.00 511.9 272.0 Office Visit 06/27/2005 10:45a Main Office Perez Santoyo M.D. 22447 414.00 401.1 786.50 250.60 600.00 511.9 Office Visit 04/25/2005 11:15a Main Office Perez Santoyo M.D. 37614 414.00 786.50 401.1 250.60 600.00 511.9 Office Visit 03/25/2005 9:45a Main Office Perez Santoyo M.D. 61731 414.00 401.1 786.09 511.9 Office Visit 02/21/2005 11:15a Main Office Perez Santoyo M.D. 16246 414.00 401.1 786.09 250.60 333.1 272.0 Office Visit 02/07/2005 9:15a Main Office Perez Santoyo M.D. 52295 414.00 401.1 250.60 786.09 564.09 565.0 Office Visit 01/28/2005 12:55p Main Office Perez Santoyo M.D. 34138 414.00 401.1 272.0 250.60 786.09 564.09 565.0 600.00 V04.81 V07.2 Office Visit 10/04/2004 1:15p Main Office Perez Santoyo M.D. 24651 786.50 414.01 401.1 Office Visit 08/20/2004 8:30a Main Office Perez Santoyo M.D. 07626 786.50 272.0 401.1 250.60 Office Visit 07/03/2004 10:15a Main Office Perez Santoyo M.D. 47339 726.0 486 272.0 781.0 Office Visit 06/05/2004 3:00p Main Office Perez Santoyo M.D. 15511 486 Office Visit 05/29/2004 1:30p Main Office Perez Santoyo M.D. 36715 726.0 781.0 272.0 Office Visit 02/06/2004 2:00p Main Office Perez Santoyo M.D. 91799 401.1 250.60 272.0 691.8 V12.09 V04.81 V07.2 V06.5 Office Visit 11/06/2003 2:30p Main Office Perez Santoyo M.D. 23266 691.8 401.1 250.60 786.50 272.0 780.79 Office Visit 09/25/2003 1:15p Main Office Perez Santoyo M.D. 96018 691.8 459.81 Office Visit 05/03/2003 1:45p Main Office Perez Santoyo M.D. 24731 401.1 250.60 272.0 Office Visit 02/03/2003 3:30p Main Office Perez Santoyo M.D. 22594 401.1 355.8 110.1 V04.81 V07.2 Plan of Care Future Appointment(s):11/06/2017 11:30 am - Perez Santoyo M.D. at Main Jnlrqz6211/19/2017 2:00 pm - Micki Lucero at Main Sxedhv1912/14/2017 11:00 am - Perez Santoyo M.D. at Main Tqeloi9710/30/2017 - Perez Santoyo M.D.J18.9 Pneumonia, unspecified organismFollow up:RTO 1 week (bring your BP machine in with you)A69.20 Lyme disease, unspecifiedComments:complete tx w/ cefuroxime but will extend it by an extra week (to complete 2+wks of Tx)I10 Essential (primary) ficmneehmpslQ09.40 Type 2 diabetes mellitus with diabetic neuropathy, unsp
[2017-11-01 19:47] LABS: ABS Basophils 0.1 10^3/ul (0-0.2); ABS Eosinophils 0.1 10^3/ul (0-0.6); ABS Lymphocytes 1.1 10^3/ul (1.0-4.8); ABS Monocytes 0.4 10^3/ul (0-0.8); ABS Neutrophils 3.2 10^3/ul (1.5-7.7); ABS Nucleated RBC 0 10^3/ul; Eosinophil % 2.2 % (0-6); Hematocrit 43 % (42-52); Hemoglobin 14.3 g/dl (14.0-18.0); Lymphocyte % 23.5 % (25-47); Mean Corpuscular HGB Conc 34 g/dl (31-36); Mean Corpuscular Hemoglobin 31 pg (27-31); Mean Corpuscular Volume 93 fL (80-94); Mean Platelet Volume 7.5 um3 (7.4-10.4); Nucleated Red Blood Cells % 0.1; Platelet Count 209 10^3/ul (150-450); Red Blood Count 4.56 10^6/ul (4.00-5.40); Red Cell Distribution Width 14 % (10.5-15); White Blood Count 4.9 10^3/ul (3.5-10.8)
[2017-11-01 19:55] LABS: INR 0.99 (0.77-1.02)
[2017-11-01 20:05] LABS: EGFR Non-African American 103.4 (>60)
--- NOTE | 2017-11-01 20:23 | RAD ---
INDICATION: Shortness of breath. COMPARISON: Most recent comparison chest x-rays dated October 25, 2017 TECHNIQUE: PA and lateral views of the chest were obtained. FINDINGS: Postsurgical changes include sternotomy wires and surgical clips overlying the mediastinum. The heart and mediastinum are normal in size and contour. There is left worse than right bibasilar costophrenic angle blunting consistent with small pleural effusions. There is patchy density overlying the right lower lobe but aeration appears improved when compared to the October 25, 2017 chest x-ray. Visualized bones are normal for the patient's age. There is no radiographic evidence of free air beneath the diaphragm IMPRESSION: SMALL PLEURAL EFFUSIONS AND QUESTIONABLE PATCHY INFILTRATE AT THE RIGHT LUNG BASE.
--- NOTE | 2017-11-01 22:53 | ED ---
Re-Evaluation - Re-Evaluation First Eval Re-Evaluation Time: 19:42 Change: Unchanged Comment: No change. Patient is still the same. Second Eval Re-Evaluation Time: 22:52 Change: Unchanged Comment: Pt signed out from Dr Ramos pending 2nd trop, which remains in normal range. Pt has no new complaints and is stable for discharge. Course/Dx - Course Course Of Treatment: A 82 y/o male JANEL presents to ED c/o extreme dizziness and being winded. According to the patient, he walked out to his mailbox which was about 100 ft. Once at the mailbox, he could not get back home because he felt dizzy and winded. Pt denies any CP or SOB, however has a mildly productive cough. An EKG revealed normal sinus rhythm of 66 BPM. T-wave abnormalities and lateral leads. A CXR revealed Small pleural effusions and questionable patchy infiltrate at the right lung base. In the ED course, the patient recieved no medications. During reevaluation of the patient, it was found that the patient exhibited no change. Patient will be signed out to Dr. Frances. Currently awaiting Troponin. Discharge - Sign-Out/Discharge Documenting (check all that apply): Sign-Out Patient Signing out patient TO: Asher Frances Receiving patient FROM: Shanice Ramos - Discharge Plan Condition: Good Disposition: HOME Patient Education Materials: Dyspnea (ED) Referrals: Perez Santoyo MD [Primary Care Provider] - () Additional Instructions: . - Billing Disposition and Condition Condition: GOOD Disposition: Home
[2017-11-01 22:57] VITALS: BP 165/88
== END 2017-11-01 23:15 | disposition home or self-care (01) ==
LOC: ED 18:37
DX: R06.02 Shortness of breath (principal); R42 Dizziness and giddiness; R05 Cough; J90 Pleural effusion, not elsewhere classified; E11.9 Type 2 diabetes mellitus without complications; I25.10 Atherosclerotic heart disease of native coronary artery without angina pectoris; I10 Essential (primary) hypertension; Z95.1 Presence of aortocoronary bypass graft; Z95.5 Presence of coronary angioplasty implant and graft; N40.0 Benign prostatic hyperplasia without lower urinary tract symptoms; Z83.3 Family history of diabetes mellitus; Z82.49 Family history of ischemic heart disease and other diseases of the circulatory system; Z87.891 Personal history of nicotine dependence
CPT/HCPCS: 36415; 71046; 80053; 83605; 83735; 83880; 84484; 85025; 85610; 85730; 93005; 99283

== ENCOUNTER 2017-11-30 06:44 | Day surgery (SDC) | payer MEDICARE, BC, OTHER ==
[~2017-11-30 06:44] MED LIST: Acetaminophen TAB* 325 MG PO PRN; Buffered Lidocaine 0.9% SYRIN* 5 ML/SYR SYRINGE INTRADERM ONE
[2017-11-30] MEDS ORDERED: fentaNYL* 50 MCG/ML 2 ML VIAL (100 MCG VIAL) ONE (07:11)
[2017-11-30] MEDS ORDERED: Lidocaine 2% PF * 5 ML VIAL ONE (07:12)
[2017-11-30] MEDS ORDERED: Propofol* 10 MG/ML 20 ML BTL IV PUSH ONE (07:12)
[2017-11-30] MEDS ORDERED: Tropicamide 1% OPTH.SOL* BTL ONE (07:57)
[2017-11-30] MEDS ORDERED: Phenylephrine 2.5% OPTH.SOL* 2 ML BTL ONE (07:57)
[2017-11-30] MEDS ORDERED: Ketorolac 0.5% OPHTH (NF) 0.5 % 5 ML BTL ONE (07:57)
[2017-11-30] MEDS ORDERED: Tetracaine 0.5% OPTH.SOL 4 ML* 1 DROP BTL ONE (07:57)
[2017-11-30] MEDS ORDERED: Neomycin/Polymy/Dex OPHTH.OIN* 3.5 GM ONE (07:57)
[2017-11-30] MEDS ORDERED: Povidone Iodine 5% OPTH* 30 ML BTL ONE (07:57)
[2017-11-30] MEDS ORDERED: Cyclopentolate 1% OPTH.SOL* 2 ML BTL ONE (07:57)
[2017-11-30] MEDS ORDERED: acetaZOLAMIDE TAB* 250 MG ONE (07:57)
[2017-11-30] MEDS ORDERED: Lidocaine 1%* 5 ML VIAL ONE (07:57)
[2017-11-30 08:35] VITALS: BP 127/69
--- NOTE | 2017-11-30 22:00 | OP ---
OPERATIVE REPORT: DATE OF OPERATION: 11/30/17 - [facility] DATE OF : 39 SURGEON: Riaz Man MD ANESTHESIA: Monitored anesthesia care. PRE-OP DIAGNOSIS: Cataract, right eye. POST-OP DIAGNOSIS: Cataract, right eye. PROCEDURE PERFORMED: Extracapsular cataract extraction of the right eye with intraocular lens implant. IMPLANTS: SN60WF 22.0 diopter lens to the right eye. COMPLICATIONS: None. DESCRIPTION OF PROCEDURE: The patient was given phenylephrine 2.5% and cyclopentolate 1% eye drops to the operative eye in the preoperative area. The patient was taken to the operating room where a time-out was taken to identify the correct patient, site, and side of the surgery. The patient's right eye was prepped and draped in the usual sterile fashion with 5% Betadine. A second time- out was taken to verify the correct patient, site, side of the surgery, and correct lens implant. A lid speculum was placed to the right eye. A 1-mm paracentesis was created in the superotemporal position. Preservative-free 1% lidocaine was injected into the anterior chamber followed by DisCoVisc. A 2.75- mm triplanar incision was created at the inferotemporal position. A Malyugin ring was then inserted due to poor pupil area dilation. A cystotome initiated a capsulorrhexis, which was completed with Utrata forceps. Hydrodissection of the lens was performed with BSS on a cannula and the lens could be spun in the capsular bag. The phacoemulsification handpiece was used with a divide-and- conquer technique to remove the nucleus with 22.69 CDE. The I/A handpiece then removed the residual cortical lens material. DisCoVisc was injected to inflate the capsular bag. The planned SN60WF 22.0 diopter lens was injected into the capsular bag. The Malyugin ring was then removed from the anterior chamber using a [place] technique. The residual DisCoVisc was removed from the eye with the I/A handpiece. The corneal incisions were hydrated and no leaks occurred at physiologic pressure around 20 mmHg per palpation. The lid speculum was removed and drapes removed. Maxitrol ointment was placed on the surface of the operative eye. An adhesive patch and shield were then placed on the operative eye. The patient was taken to the postoperative area in stable condition. [id number]/[facility] [place] #: [id number] ERLIN
== END 2017-11-30 08:37 | disposition home or self-care (01) ==
LOC: OREAST 06:44
PROVIDERS: ATTEND Student in an Organized Health Care Education/Training Program
DX: H25.11 Age-related nuclear cataract, right eye (principal); H43.813 Vitreous degeneration, bilateral; H40.023 Open angle with borderline findings, high risk, bilateral; Z87.891 Personal history of nicotine dependence; E11.9 Type 2 diabetes mellitus without complications; Z79.84 Long term (current) use of oral hypoglycemic drugs; I25.10 Atherosclerotic heart disease of native coronary artery without angina pectoris; Z95.1 Presence of aortocoronary bypass graft
CPT/HCPCS: A9270-GY; J2704; J3010; V2632

== ENCOUNTER 2017-12-07 07:03 | Day surgery (SDC) | payer MEDICARE, BC ==
[2017-12-07] MEDS ORDERED: fentaNYL* 50 MCG/ML 2 ML VIAL (100 MCG VIAL) ONE (08:14)
[2017-12-07] MEDS ORDERED: Midazolam* 1 MG/ML 2 ML VIAL (2 MG) ONE (08:14)
[2017-12-07 09:47] VITALS: BP 126/57
[2017-12-07] MEDS ORDERED: Tropicamide 1% OPTH.SOL* BTL ONE (11:12)
[2017-12-07] MEDS ORDERED: Povidone Iodine 5% OPTH* 30 ML BTL ONE (11:12)
[2017-12-07] MEDS ORDERED: acetaZOLAMIDE TAB* 250 MG ONE (11:12)
[2017-12-07] MEDS ORDERED: Ketorolac 0.5% OPHTH (NF) 0.5 % 5 ML BTL ONE (11:12)
[2017-12-07] MEDS ORDERED: Lidocaine 1%* 5 ML VIAL ONE (11:12)
[2017-12-07] MEDS ORDERED: Cyclopentolate 1% OPTH.SOL* 2 ML BTL ONE (11:12)
[2017-12-07] MEDS ORDERED: Phenylephrine 2.5% OPTH.SOL* 2 ML BTL ONE (11:12)
[2017-12-07] MEDS ORDERED: Tetracaine 0.5% OPTH.SOL 4 ML* 1 DROP BTL ONE (11:12)
[2017-12-07] MEDS ORDERED: Neomycin/Polymy/Dex OPHTH.OIN* 3.5 GM ONE (11:12)
--- NOTE | 2017-12-07 12:45 | OP ---
DATE OF OPERATION: 12/07/17 - [facility] DATE OF : 39 SURGEON: Riaz Man MD ANESTHESIA: Monitored anesthesia care. PRE-OP DIAGNOSIS: Cataract, left eye. POST-OP DIAGNOSIS: Cataract, left eye. IMPLANTS: SN60WF 22.5 diopter lens to the left eye. OPERATIVE PROCEDURE: Extracapsular cataract extraction of the left eye with intraocular lens implant. COMPLICATIONS: None. DESCRIPTION OF PROCEDURE: The patient was given phenylephrine 2.5% and cyclopentolate 1% eye drops to the operative eye in the preoperative area. The patient was taken to the operating room where a time-out was taken to verify the correct patient, site, and side of surgery. The patient's left eye was prepped and draped in the usual sterile fashion with 5% Betadine. A second time -out was taken to verify the correct patient, site, and side of surgery, and correct lens implant. A lid speculum was placed to the left eye. A 1 mm paracentesis blade was used to make a clear corneal incision in the inferotemporal position. Preservative-free 1% lidocaine was injected into the anterior chamber. DisCoVisc was then injected in the anterior chamber. A 2.75 mm keratome blade was used to make a triplanar incision at the supero-temporal position. A Malyugin ring was then inserted due to poor pupil dilation. A cystotome initiated the capsulorrhexis, which was completed with Utrata forceps in a continuous and curvilinear manner. Hydrodissection of the lens was performed with BSS on a cannula. The lens could be spun in a capsular bag. The phacoemulsification handpiece was used with a swqdoc-cyl-kpbwmmp technique to remove the nucleus with 21.77 CDE. The I/A handpiece then removed with the residual cortical lens material. DisCoVisc was injected to inflate the capsular bag. The planned SN60WF 22.5 diopter lens was injected in the capsular bag. The Malyugin ring was removed from the anterior chamber using a [place] technique. The residual DisCoVisc was removed from the eye with the I/A handpiece. The corneal incisions were hydrated and no leaks occurred at physiologic pressure around 20 mmHg per palpation. The lid speculum was removed and drapes removed. Maxitrol ointment was placed to the surface of the operative eye. An adhesive patch and shield was then placed on the operative eye. The patient was taken to the postoperative area in stable condition. [id number]/[facility] #: [id number] ERLIN
== END 2017-12-07 09:38 | disposition home or self-care (01) ==
LOC: OREAST 07:03
PROVIDERS: ATTEND Student in an Organized Health Care Education/Training Program
DX: H25.12 Age-related nuclear cataract, left eye (principal); H21.562 Pupillary abnormality, left eye; H43.813 Vitreous degeneration, bilateral; H40.023 Open angle with borderline findings, high risk, bilateral; Z79.84 Long term (current) use of oral hypoglycemic drugs; I10 Essential (primary) hypertension; E11.40 Type 2 diabetes mellitus with diabetic neuropathy, unspecified; I25.10 Atherosclerotic heart disease of native coronary artery without angina pectoris; Z95.1 Presence of aortocoronary bypass graft
CPT/HCPCS: A9270-GY; J2250; J3010; V2632

== ENCOUNTER 2019-05-30 13:30 | Inpatient (IN) | payer MEDICARE, BC ==
--- NOTE | 2019-05-30 14:05 | ED ---
Respiratory - HPI Summary HPI Summary: This pt is an 84 y/o male presenting to [facility] c/o difficulty breathing. Pt reports about 1 week ago he noticed he was more exhausted after walking his dog in the morning. He states he usually walks about 1 mile a day without any difficulties. Pt notes by 05/27/19 he developed a cold that has since worsened. He reports difficulty sleeping at night secondary to cough and chest pain due to cough. This morning pt states he had difficulty breathing during lunch time. Pt additionally reports low grade fevers. PMHx includes triple bypass, cardiac stents. His automotive quality manager is Dr. Cummings and has an annual check up appointment in 4 days on 06/03/19. - History of Current Complaint Chief Complaint: EDRespiratoryDistress Stated Complaint: RESPIRTORY RATTLING PER PT Time Seen by Provider: 05/30/19 14:00 Hx Obtained From: Patient Onset/Duration: Lasting Days, Still Present Timing: Constant Current Severity: Moderate Pain Intensity: 0 Character: Cough (Nonproductive), Dyspnea at Rest Aggravating Factor(s): Nothing Alleviating Factor(s): Nothing Associated Signs and Symptoms: Fever, SOB, Chest Pain, Chest Pain with Cough - Allergy/Home Medications Allergies/Adverse Reactions: Allergies Allergy/AdvReac Type Severity Reaction Status Date / Time No Known Allergies Allergy Verified 05/30/19 15:18 Home Medications: Home Medications Benzonatate CAP* [Tessalon 100 MG CAP*] 200 mg PO BEDTIME PRN MDD 600mg [History Confirmed 05/30/19] Nitroglycerin TAB 0.4 MG* 0.4 mg SL Q5M PRN 05/30/19 [History Confirmed 05/30/19 ] Pregabalin 25 mg CAP (*) [Lyrica 25 mg CAP (*)] 25 mg PO QAM PRN 05/30/19 [ History Confirmed 05/30/19] Pregabalin 25 mg CAP (*) [Lyrica 25 mg CAP (*)] 50 mg PO QPM PRN 05/30/19 [ History Confirmed 05/30/19] PMH/Surg Hx/FS Hx/Imm Hx Endocrine/Hematology History: Reports: Hx Diabetes - CONTROL WITH DIET Cardiovascular History: Reports: Hx Angina, Hx Cardiomegaly - WHEN HAD RHEUMATIC FEVER, Hx Coronary Artery Disease, Hx Hypertension, Hx Rheumatic Fever - A CHILD, Hx Syncope, Other Cardiovascular Problems/Disorders - Triple Bypass Denies: Hx Pacemaker/ICD Respiratory History: Reports: Hx Pneumonia History: Reports: Hx Benign Prostatic Hyperplasia, Hx Kidney Stones - HX OF LONG TIME AGO, Other Problems/Disorders - neurogenic bladder Denies: Hx Renal Disease Musculoskeletal History: Reports: Hx Arthritis, Hx Back Problems - spinal stenosis Sensory History: Reports: Hx Cataracts, Hx Contacts or Glasses Denies: Hx Hearing Aid Opthamlomology History: Reports: Hx Cataracts, Hx Contacts or Glasses Psychiatric History: Reports: Hx Community Mental Health Tx - after 's Denies: Hx Panic Disorder - Cancer History Hx Chemotherapy: No - Surgical History Surgery Procedure, Year, and Place: CARDIAC HEART STENTS 2004. TRIPLE BYPASS 2005. Tonsillectomy Hx Anesthesia Reactions: No Infectious Disease History: No Infectious Disease History: Denies: Traveled Outside the [place] in Last 30 Days - Family History Known Family History: Positive: Diabetes, Other - [place] - Social History Alcohol Use: Occasionally Alcohol Amount: 1-3 drinks per week Substance Use Type: Reports: None Smoking Status (MU): Former Smoker Amount Used/How Often: 20-25 YEARS AGO - SMOKED A PIPE Review of Systems Positive: Fever Positive: Chest Pain Positive: Shortness Of Breath, Cough All Other Systems Reviewed And Are Negative: Yes Physical Exam - Summary Physical Exam Summary: VITAL SIGNS: Reviewed. GENERAL: Patient is a well-developed and nourished male who is lying comfortable in the stretcher. Patient is not in any acute respiratory distress. HEAD AND FACE: No signs of trauma. No ecchymosis, hematomas or skull depressions. No sinus tenderness. EYES: PERRLA, EOMI x 2, No injected conjunctiva, no nystagmus. EARS: Hearing grossly intact. Ear canals and tympanic membranes are within normal limits. MOUTH: Oropharynx within normal limits. Dry oral mucosa. NECK: Supple, trachea is midline, no adenopathy, no JVD, no carotid bruit, no c- spine tenderness, neck with full ROM. CHEST: Symmetric, no tenderness at palpation LUNGS: Crackles in both lungs. CVS: Regular rate and rhythm, S1 and S2 present, no murmurs or gallops appreciated. ABDOMEN: Soft, non-tender. No signs of distention. No rebound, no guarding, and no masses palpated. Bowel sounds are normal. EXTREMITIES: FROM in all major joints, no edema, no cyanosis or clubbing. NEURO: Alert and oriented x 3. No acute neurological deficits. Speech is normal and follows commands. SKIN: Dry and warm Triage Information Reviewed: Yes Vital Signs On Initial Exam: Initial Vitals Temp Pulse Resp BP Pulse Ox 97.8 F 105 22 161/91 95 05/30/19 13:35 05/30/19 13:35 05/30/19 13:35 05/30/19 13:35 05/30/19 13:35 Vital Signs Reviewed: Yes Procedures - Sedation Patient Received Moderate/Deep Sedation with Procedure: No Diagnostics - Vital Signs Vital Signs Temp Pulse Resp BP Pulse Ox 05/30/19 13:35 97.8 F 105 22 161/91 95 - Laboratory Result Diagrams: 05/31/19 05:44 05/31/19 05:44 Lab Statement: Any lab studies that have been ordered have been reviewed, and results considered in the medical decision making process. - Radiology Chest XR Radiology Interpretation Completed By: Radiologist Summary of Radiographic Findings: IMPRESSION: #. Probable inflammatory infiltrate at the RIGHT lung base superimposed on chronic obstructive pulmonary disease. #. Small bilateral pleural effusions versus CP angle blunting due to hyperinflation without change. Dr. Varghese has reviewed this report. - EKG 14:18 Cardiac Rate: NL - at 75 bpm EKG Rhythm: Sinus Rhythm EKG Comparison: No Significant Change - similar to prior on 11/01/17. Summary of EKG Findings: EKG at 1418 shows sinus rhythm at a rate of [address] elevations. Some diffuse ST abnormalities but similar to prior on 11/01/17. This EKG was interpreted and reviewed by ED physician. Disposition - Course Assessment/Plan: This pt is an 84 y/o male presenting to [facility] c/o difficulty breathing. Pt reports about 1 week ago he noticed he was more exhausted after walking his dog in the morning. He states he usually walks about 1 mile a day without any difficulties. Pt notes by 05/27/19 he developed a cold that has since worsened. He reports difficulty sleeping at night secondary to cough and chest pain due to cough. This morning pt states he had difficulty breathing during lunch time. Pt additionally reports low grade fevers. PMHx includes triple bypass, cardiac stents. His automotive quality manager is Dr. Cummings and has an annual check up appointment in 4 days on 06/03/19. In the ED course the patient was placed in a spring upholsterer, IV access was obtained, IV fluids were started. Blood test w/o a significant abnormality except for WBCs of 3.1, hematocrit 41, and platelets 128. Glucose is 130, calcium is 8.2, CRP is 23.12. EKG is a normal sinus rhythm without ST elevations. Chest x-ray IMPRESSION: #. Probable inflammatory infiltrate at the RIGHT lung base superimposed on chronic obstructive pulmonary disease. #. Small bilateral pleural effusions versus CP angle blunting due to hyperinflation without change. It seems that the patient has COPD exacerbation and pneumonia. The patient was given Rocephin and azithromycin for the pneumonia and DuoNeb and Solu-Medrol for his COPD exacerbation. I discussed my physical exam and test results with Dr. Degroot from the hospitalist services and she agrees to admit the patient to her services. The patient is hemodynamically stable, alert and oriented x 3. - Diagnoses Provider Diagnoses: Pneumonia - Physician Notifications Discussed Care Of Patient With: Sharon Degroot - hospitalist Time Discussed With Above Provider: 16:21 Instructed by Provider To: Admit As Inpatient Discharge ED - Sign-Out/Discharge Documenting (check all that apply): Patient Departure - Admit to [facility] - Discharge Plan Condition: Stable Disposition: ADMITTED TO [facility] - Billing Disposition and Condition Condition: STABLE Disposition: Admitted to [facility] - Attestation Statements Document Initiated by Jonathon: Yes Documenting Scribe: Jo Ann Rodríguez Provider For Whom Jonathon is Documenting (Include Credential): Jl Varghese MD Scribe Attestation: Jo Ann Mace, scribed for Jl Varghese MD on 06/01/19 at 0242. Scribe Documentation Reviewed: Yes Provider Attestation: The documentation as recorded by the Jo Ann freire accurately reflects the service I personally performed and the decisions made by , Jl Varghese MD Status of Scribe Document: Viewed
[2019-05-30 14:36] LABS: ABS Eosinophils 0.1 10^3/ul (0-0.6); ABS Monocytes 0.3 10^3/ul (0-0.8); ABS Neutrophils 1.7 10^3/ul (1.5-7.7); Eosinophil % 2.4 %; Hematocrit 41 % (42-52); Hemoglobin 14.1 g/dL (14.0-18.0); Lymphocyte % 31.7 %; Mean Corpuscular HGB Conc 34 g/dL (31-36); Mean Corpuscular Hemoglobin 32 pg (27-31); Mean Corpuscular Volume 94 fL (80-94); Mean Platelet Volume 8.9 fL (7.4-10.4); Nucleated Red Blood Cells % 0.1; Platelet Count 128 10^3/uL (150-450); Red Blood Count 4.41 10^6 /uL (4.18-5.48); Red Cell Distribution Width 14 % (10-15); White Blood Count 3.1 10^3/uL (3.5-10.8)
[2019-05-30 14:53] LABS: Troponin I 0.01 ng/mL (<0.03)
[2019-05-30 14:57] LABS: CKMB ng/mL 7.5 ng/mL (0.6-6.3)
[2019-05-30 15:10] LABS: Albumin 3.8 g/dL (3.2-5.2); Albumin/Globulin Ratio 1.4 (1-3); BUN/Creatinine Ratio 26.4 (8-20); C Reactive Protein 23.12 mg/L (<8.01); Calcium 8.2 mg/dL (8.6-10.3); EGFR African American 126.5 (>60); EGFR Non-African American 104.5 (>60); Globulin 2.8 g/dL (2-4); Potassium 4.2 mmol/L (3.5-5.0); Total Bilirubin 0.4 mg/dL (0.2-1.0); Total Protein 6.6 g/dL (6.4-8.9)
[2019-05-30] MEDS ORDERED: cefTRIAXone(*) 1 GM in NS 0.9% 50 ML* 50 ML IVPB ONE (15:58)
[2019-05-30] MEDS ORDERED: Azithromycin 500 mg/250 ml NS 500 MG/250 ML BAG IVPB ONE (15:58)
[2019-05-30] MEDS ORDERED: methylPREDNISolone 125 MG* 2 ML VIAL IV ONE (16:00)
[2019-05-30] MEDS ORDERED: Albuterol/Ipratropium NEB.SOL* Albuterol 2.5 MG/Ipratropium 0.5 MG 3 ML INH ONE (16:00)
[2019-05-30 16:03] LABS: Influenza A Molecular Negative (Negative); Influenza B Molecular Negative (Negative)
--- NOTE | 2019-05-30 16:33 | HP ---
History of Present Illness - History of Present Illness Reason for Visit: Cough and shortness of breath History of Present Illness: 84 M with PMH significant for CAD( s/p triple bypass and stent), HTN, BPH, T2Dm with neuropathy and MANASA presented with cough for 4 days. According to patient he was in his usual state of health 4 days ago when he started to have cough which was gradual, dry and progressive. It was dry till today morning; it was productive and white on color and not mixed with blood. He also had runny nose and fever with Temp of 100.2 F but denies chills, rigor, malaise and sneezing. This morning at around 12:00 PM he started having difficulty in breathing at rest which prompted him to come to ED. He states that for last 2 weeks he is getting SOB with exertion and has to take rest for longer period than usual while strolling with his dog. He denies orthopnea, PND, Leg swelling and palpitation. He denies sick contact and travel outside to country. Hospital Course On arrival patient was SOB and was tachypneoc but his vitals were stable and he was saturating well in room air. His BP was 161/91. His EKG shows sinus rhythm at a rate of [address] elevations. Some diffuse ST abnormalities but similar to prior on 11/01/17. Blood work shows leucopenia, thrombocytopenia, elevated blood glucose and elevated CRP. Influenza is negative. CXR showed infiltrates in right middle lobe with small bilateral pleural effusion. He was given inhaler and antibiotic in ED. - Past Medical History Past Medical History: 1. HFrEF- EF of 35-40% 2. CAD- s/p stents and triple bypass 3. HTN 4. BPH 5. DM- Type 2 with diabetic neuropathy 6. MANASA 7. History of rheumatic fever in past with heart involvement. - Past Surgical History Past Surgical History: 1. CABG on 2005 2. Stent placment on 2004 3. Tonsillectomy 4. TURP - Past Family History Past Family History: Father had Heart disease and mother had Diabetes. 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 He is former smoker- used to smoke pipe and quit 15 years ago. He drinks alcohol ocassionally- 1-2 times per week. He denies other substance use. He lives with his significant other- Arianna Luque who is his HCP([phone]). Home phone is [phone]. He is full code. Medications: Home Medications Medication Instructions Recorded Confirmed Type Finasteride TAB* [Proscar TAB*] 5 mg PO QPM 09/15/12 05/30/19 History Lisinopril TAB* [Prinivil TAB 10 5 mg PO BID 09/15/12 05/30/19 History MG*] Tamsulosin CAP* [Flomax CAP*] 0.4 mg PO QPM 09/15/12 05/30/19 History Aspirin TAB* [Aspirin 325 MG TAB*] 325 mg PO QAM 06/17/16 05/30/19 History Acetaminop/Codeine 30 MG TAB* 1 tab PO TID PRN 01/11/18 05/30/19 History [Tylenol/Codeine 30 MG TAB*] Docusate CAP* [Colace Cap*] 100 mg PO DAILY PRN 01/11/18 05/30/19 History Benzonatate CAP* [Tessalon 100 MG 200 mg PO BEDTIME PRN MDD 600mg 05/30/1905/30 History CAP*] Nitroglycerin TAB 0.4 MG* 0.4 mg SL Q5M PRN 05/30/19 05/30/19 History Pregabalin 25 mg CAP (*) [Lyrica 25 mg PO QAM PRN 05/30/19 05/30/19 History 25 mg CAP (*)] Pregabalin 25 mg CAP (*) [Lyrica 50 mg PO QPM PRN 05/30/19 05/30/19 History 25 mg CAP (*)] Allergies/Adverse Reactions: Allergies Allergy/AdvReac Type Severity Reaction Status Date / Time No Known Allergies Allergy Verified 05/30/19 15:18 Review of Systems - Review of Systems Constitutional: Positive: Fever. Negative: Chills, Sweats, Weakness, Malaise, Other Eyes: Negative: Pain, Vision Change, Conjunctivae Inflammation, Eyelid Inflammation, Redness, Other ENT: Positive: Nose Congestion. Negative: Ear Pain, Ear Discharge, Nose Pain, Nose Discharge, Mouth Pain, Mouth Swelling, Throat Pain, Throat Swelling, Other Respiratory: Positive: Cough, Shortness of Breath. Negative: Dry, Hemoptysis, SOB with Excertion, Pleuritic Pain, Sputum, Wheezing Cardiovascular: Negative: Chest Pain, Palpitations, Orthopnea, Paroxysmal Noc. Dyspnea, Edema, Light Headedness, Other Gastrointestinal: Negative: Nausea, Vomiting, Abdominal Pain, Diarrhea, Constipation, Melena, Hematochezia, Other Genitourinary: Positive: Frequency. Negative: Dysuria, Incontinence, Hematuria , Retention, Other Musculoskeletal: Negative: Neck Pain, Shoulder Pain, Arm Pain, Back Pain, Hand Pain, Leg Pain, Foot Pain, Other Skin: Negative: Rash, Lesions, Manuel, Bruising, Other Neurological: Negative: Weakness, Numbness, Incoordination, Change in Speech, Confusion, Seizures, Other Exam Vital Signs: Vital Signs (72 hours) 05/30/19 05/30/19 05/30/19 13:35 14:05 14:06 Temperature 97.8 F Pulse Rate 105 85 80 Respiratory 22 22 22 Rate Blood Pressure 161/91 156/97 (mmHg) O2 Sat by Pulse 95 93 93 Oximetry 05/30/19 05/30/19 05/30/19 14:28 14:58 15:00 Temperature Pulse Rate 72 65 65 Respiratory 22 16 17 Rate Blood Pressure 140/74 166/84 (mmHg) O2 Sat by Pulse 93 94 94 Oximetry 05/30/19 05/30/19 05/30/19 15:28 15:58 16:00 Temperature Pulse Rate 64 69 72 Respiratory 15 22 27 Rate Blood Pressure 163/86 182/98 (mmHg) O2 Sat by Pulse 92 94 94 Oximetry Exam: General - NAD, sitting up in bed, well groomed and in nightgown Eyes - PERRLA, EOM intact HEENT- no abnormality Lymph Nodes - No lymphadenopathy Cardiovascular - RRR, no JVD, no carotid bruits, Systolic murmur heard on mitral area. Lungs - No use of accessory muscles; Diffuse ronchi heard with crackles on base. Skin - No rashes, skin warm and dry, no erythematous areas Abdomen - Normal bowel sounds, abdomen soft and nontender Extremities - No edema, cyanosis or clubbing Musculo Skeletal - 5/5 strength, normal range of motion, no swollen or erythematous joints. Neurological Alert and oriented x 3, CN 2-12 grossly intact. Result Diagrams: 05/30/19 14:17 05/30/19 14:17 Assessment/Plan - Assessment/Plan Assessment: 84 M with CAD(s/p stent and CABG), HTN, DM with neuropathy, MANASA and BPH presented with cough and SOB preceeded by URI symptoms. FOund to have right middle lobe infiltrates concerning for pneumonia with small bilateral pleural effusion. Differential include: CAP> Heart failure. Started on ceftriaxone and azithro(day1 on 05/30). Plan: 1. Cough and shortness of breath: His symptoms looks like infectious origin and with above CXR findings there is possibility of pneumonia. Differential include CHF given his extensive cardiac history but no other sx like orhtopnea and PND and leg swelling. BNP is normal. So, we will do work up for pneumonia and treat it. Flu is negative. Urine sent for strept pneumo and legionella antigen. We have started him on ceftriaxone and azithro. But if he fails to improve then could do work up for CHF. 2. HTN: Continue lisinopril. 3. Chronic thrombocytopenia: Continue to monitor 4. CAD: Continue home meds-aspirin, nitroglycerin 5. BPH: Continue tamsulosin and finasteride. 6. DM neuropathy: Patient DM is controlled by diet. But he takes pregabalin for neuropathy. we will check A1C. 7.MANASA: Continue home treatment. 8. DVT prophylaxis: on lovenox 9. Full code Attestation Documenting Resident: Michael Sanchez Supervising Physician: Sharon Degroot Attestation: This service has been performed in part by a resident under the direction of a teaching physician.I, Sharon Degroot, performed the service, or was physically present during the critical, or vu portions of the service, furnished by the resident. I participated in the management of the patient.
[2019-05-30] MEDS ORDERED: Nitroglycerin TAB 0.4 MG* 0.4 MG TAB SL PRN (17:35)
[2019-05-30] MEDS ORDERED: Acetaminophen / Codeine* #3 (300 MG/30 MG) TAB PO PRN (17:35)
[2019-05-30] MEDS ORDERED: Benzonatate CAP* 100 MG PO PRN (17:35)
[2019-05-30] MEDS ORDERED: Docusate CAP* 100 MG PO PRN (17:35)
[2019-05-30] MEDS ORDERED: Pregabalin 25 mg CAP (*) PO PRN ×2 (17:35)
[2019-05-30] MEDS: Enoxaparin(*) 40 MG/0.4 ML SYR SUBCUT SCH (17:39)
[2019-05-30] MEDS: Finasteride TAB* 5 MG PO SCH (20:48)
[2019-05-30] MEDS: Tamsulosin CAP* 0.4 MG PO SCH (20:49)
[2019-05-30] MEDS: Lisinopril TAB* 5 MG PO SCH (20:49)
[2019-05-30 20:55] LABS: Urine Appearance Clear; Urine Bilirubin Negative (Negative); Urine Blood Negative (Negative); Urine Color Yellow; Urine Glucose 1+(50 mg/dL) (Negative); Urine Ketones Trace (Negative); Urine Nitrite Negative (Negative); Urine Protein Negative (Negative); Urine Specific Gravity 1.009 (1.010-1.030); Urine Urobilinogen Negative (Negative)
[2019-05-31 06:03] LABS: ABS Lymphocytes 0.8 10^3/ul (1.0-4.8); ABS Monocytes 0.1 10^3/ul (0-0.8); ABS Neutrophils 3.3 10^3/ul (1.5-7.7); Eosinophil % 0.1 %; Hematocrit 41 % (42-52); Hemoglobin 13.8 g/dL (14.0-18.0); Lymphocyte % 18.8 %; Mean Corpuscular HGB Conc 34 g/dL (31-36); Mean Corpuscular Hemoglobin 32 pg (27-31); Mean Corpuscular Volume 93 fL (80-94); Mean Platelet Volume 8.1 fL (7.4-10.4); Nucleated Red Blood Cells % 0.1; Platelet Count 160 10^3/uL (150-450); Red Blood Count 4.38 10^6 /uL (4.18-5.48); Red Cell Distribution Width 14 % (10-15); White Blood Count 4.2 10^3/uL (3.5-10.8)
[2019-05-31 06:19] LABS: BUN/Creatinine Ratio 27.9 (8-20); Calcium 8.3 mg/dL (8.6-10.3); EGFR African American 135.1 (>60); EGFR Non-African American 111.6 (>60); Potassium 4.3 mmol/L (3.5-5.0)
--- NOTE | 2019-05-31 06:59 | PN ---
Subjective Date of Service: 05/31/19 Interval History: HD 2 on 05/31 No acute overnight events Vitals stable; although hypertensive Objective Active Medications: Acetaminophen/Codeine Phosphate (Tylenol/Codeine 30 Mg Tab*) 1 tab PO TID PRN PRN Reason: PAIN - MODERATE Aspirin (Aspirin Tab*) 325 mg PO QAM VIOLETA Azithromycin (Zithromax Tab*) 250 mg PO DAILY [facility] Stop: 06/03/19 09:00 Benzonatate (Tessalon Cap*) 200 mg PO BEDTIME PRN PRN Reason: COUGH Last Admin: 05/30/19 20:49 Dose: 200 mg Docusate Sodium (Colace Cap*) 100 mg PO DAILY PRN PRN Reason: CONSTIPATION Enoxaparin Sodium (Lovenox(*)) 40 mg SUBCUT Q24H [facility] Last Admin: 05/30/19 17:39 Dose: 40 mg Finasteride (Proscar Tab*) 5 mg PO QPM [facility] Last Admin: 05/30/19 20:48 Dose: 5 mg Ceftriaxone Sodium 1 gm/ (Sodium Chloride) 50 mls @ 100 mls/hr IVPB Q24H [facility] Lisinopril (Prinivil Tab*) 5 mg PO BID [facility] Last Admin: 05/30/19 20:49 Dose: 5 mg Nitroglycerin (Nitroglycerin Tab 0.4 Mg*) 0.4 mg SL Q5M PRN PRN Reason: chest pain Pregabalin (Lyrica 25 Mg Cap (*)) 25 mg PO QAM PRN PRN Reason: nerve pain Pregabalin (Lyrica 25 Mg Cap (*)) 50 mg PO QPM PRN PRN Reason: nerve pain Last Admin: 05/30/19 20:48 Dose: 50 mg Tamsulosin HCl (Flomax Cap*) 0.4 mg PO QPM [facility] Last Admin: 05/30/19 20:49 Dose: 0.4 mg Vital Signs - 8 hr 05/30/19 05/30/19 05/31/19 23:27 23:58 00:05 Temperature 98.3 F Pulse Rate 80 Respiratory 20 18 20 Rate Blood Pressure 144/83 (mmHg) O2 Sat by Pulse 97 Oximetry 05/31/19 03:10 Temperature 97.6 F Pulse Rate 72 Respiratory 16 Rate Blood Pressure 173/83 (mmHg) O2 Sat by Pulse 96 Oximetry Oxygen Devices in Use Now: None Result Diagrams: 05/31/19 05:44 05/31/19 05:44 Assess/Plan/Problems-Billing Assessment: 84 M with CAD(s/p stent and CABG), HTN, DM with neuropathy, MANASA and BPH presented with cough and SOB preceeded by URI symptoms. Found to have right middle lobe infiltrates concerning for pneumonia with small bilateral pleural effusion. Differential include: CAP> Heart failure. Started on ceftriaxone and azithro(day2 on 05/31). - Patient Problems (1) Pneumonia Current Visit: Yes Status: Acute Code(s): J18.9 - PNEUMONIA, UNSPECIFIED ORGANISM SNOMED Code(s): 168594575 Comment: - History of cough and difficulty in breathing; associated with runny nose and low grade fever. -elevated CRP but no leucocytosis -CXR: right middle lobe infiltrates with small bilateral pleural effusion -Flu negative -Urine negative for legionella and strep pneumo -On ceftriaxone and azithro(day 2 on 05/31)- total of 7 days -Differential include: Congestive heart failure- favoured by SOB on exertion for 2 weeks, Pleural effusion on CXR; less favoured by no other sx like leg swelling, orthopnea, PND, normal BNP. (2) Hypertension Current Visit: Yes Status: Acute Code(s): I10 - ESSENTIAL (PRIMARY) HYPERTENSION SNOMED Code(s): 80273340 Comment: -According to patient he takes lisinopril 5 mg BID. -His BP is on higher side -Need to increase lisinopril dose (3) BPH (benign prostatic hyperplasia) Current Visit: Yes Status: Acute Code(s): N40.0 - BENIGN PROSTATIC HYPERPLASIA WITHOUT LOWER URINRY TRACT SYMP SNOMED Code(s): 034957969 Comment: -Continue tamsulosin and finasteride (4) Neuropathy Current Visit: Yes Status: Acute Code(s): G62.9 - POLYNEUROPATHY, UNSPECIFIED SNOMED Code(s): 393144648 Comment: -Has diabetic neuropathy -His A1c is 5.1- normal - takes pregabalin (5) DVT prophylaxis Current Visit: Yes Status: Acute Code(s): Z29.9 - ENCOUNTER FOR PROPHYLACTIC MEASURES, UNSPECIFIED SNOMED Code(s): 876120265 Comment: -lovenox (6) Full code status Current Visit: Yes Status: Acute Code(s): Z78.9 - OTHER SPECIFIED HEALTH STATUS SNOMED Code(s): 366321915 Status and Disposition: Inpatient Attestation Attending/Supervising Physician Comment: Agree with resident note and finding 84M with PMH CAD who presented with RML PNA CURB 65 2 on admission who continues to improve. No signs of CHF, mild bronchitis and wheezing associated with RAD vs underlying COPD -Continue abx, supportive care, add on strep pneumonia and legionella ag -May benefit from nebs -Will hold on steroids for now -Approaching baseline, may be able to d/c tomorrow, off O2
[2019-05-31] MEDS: Lisinopril TAB* 5 MG PO SCH ×2 (08:57→20:54)
[2019-05-31] MEDS: Aspirin TAB* 325 MG PO SCH (08:57)
[2019-05-31] MEDS: Azithromycin TAB* 250 MG PO SCH (08:57)
[2019-05-31] MEDS: Hydrochlorothiazide TAB* 25 MG PO SCH (12:49)
[2019-05-31] MEDS ORDERED: cefTRIAXone(*) 1 GM in NS 0.9% 50 ML* 50 ML IVPB SCH (16:00)
[2019-05-31] MEDS: Tamsulosin CAP* 0.4 MG PO SCH (17:38)
[2019-05-31] MEDS: Enoxaparin(*) 40 MG/0.4 ML SYR SUBCUT SCH (17:38)
[2019-05-31] MEDS: Finasteride TAB* 5 MG PO SCH (17:39)
[2019-05-31] MEDS: Albuterol/Ipratropium NEB.SOL* Albuterol 2.5 MG/Ipratropium 0.5 MG 3 ML INH SCH ×2 (18:58→20:07)
[2019-06-01] MEDS: Albuterol/Ipratropium NEB.SOL* Albuterol 2.5 MG/Ipratropium 0.5 MG 3 ML INH SCH (01:05)
[2019-06-01] MEDS ORDERED: Albuterol/Ipratropium NEB.SOL* Albuterol 2.5 MG/Ipratropium 0.5 MG 3 ML INH PRN (02:23)
[2019-06-01] MEDS: Lisinopril TAB* 5 MG PO SCH (08:20)
[2019-06-01] MEDS: Aspirin TAB* 325 MG PO SCH (08:20)
[2019-06-01] MEDS: Hydrochlorothiazide TAB* 25 MG PO SCH (08:20)
[2019-06-01] MEDS: Azithromycin TAB* 250 MG PO SCH (08:20)
[2019-06-01 08:23] LABS: ABS Lymphocytes 1.7 10^3/ul (1.0-4.8); ABS Monocytes 0.4 10^3/ul (0-0.8); ABS Neutrophils 5.2 10^3/ul (1.5-7.7); Eosinophil % 0.3 %; Hematocrit 39 % (42-52); Hemoglobin 13.3 g/dL (14.0-18.0); Lymphocyte % 23.5 %; Mean Corpuscular HGB Conc 34 g/dL (31-36); Mean Corpuscular Hemoglobin 32 pg (27-31); Mean Corpuscular Volume 94 fL (80-94); Mean Platelet Volume 8.2 fL (7.4-10.4); Nucleated Red Blood Cells % 0.1; Platelet Count 149 10^3/uL (150-450); Red Blood Count 4.18 10^6 /uL (4.18-5.48); Red Cell Distribution Width 14 % (10-15); White Blood Count 7.3 10^3/uL (3.5-10.8)
[2019-06-01 08:39] LABS: BUN/Creatinine Ratio 29.7 (8-20); Calcium 8.2 mg/dL (8.6-10.3); EGFR African American 122.5 (>60); EGFR Non-African American 101.3 (>60); Potassium 3.9 mmol/L (3.5-5.0)
--- NOTE | 2019-06-01 11:39 | DS ---
CC: Dr. Perez Santoyo * DISCHARGE SUMMARY: DATE OF ADMISSION: 05/30/19 DATE OF DISCHARGE: 06/01/19 PRIMARY CARE PROVIDER: Dr. Perez Santoyo. DISPOSITION AT THE TIME OF DISCHARGE: Stable to be discharged to home. PRIMARY DIAGNOSIS: Community-acquired pneumonia. SECONDARY DIAGNOSES: 1. Coronary artery disease, status post stent and CABG. 2. Hypertension. 3. Diabetes. 4. Obstructive sleep apnea. 5. Benign prostatic hypertrophy. MEDICATIONS AT THE TIME OF DISCHARGE: 1. Augmentin 875 p.o. b.i.d. for an additional 4 days status post discharge. 2. Azithromycin 250 mg p.o. daily for an additional 5 days status post discharge. 3. Hydrochlorothiazide 12.5 mg p.o. daily. 4. Lisinopril 5 mg p.o. b.i.d. 5. Tamsulosin 0.4 mg p.o. q.p.m. 6. Pregabalin 25 mg p.o. q.a.m., 50 mg p.o. q.p.m. 7. Nitroglycerin 0.4 mg sublingual q.5 minutes. 8. Finasteride 5 mg p.o. q.p.m. 9. Docusate 100 mg p.o. daily p.r.n. 10. Benzonatate 200 mg p.o. q.h.s. p.r.n. 11. Aspirin 325 mg p.o. q.a.m. 12. Acetaminophen/codeine 1 tab p.o. t.i.d. p.r.n. for cough, which was a prior p.r.n. medication. Medication changes in this hospitalization was addition of: 1. Low-dose hydrochlorothiazide. 2. Augmentin and azithromycin for short-term courses for community-acquired pneumonia. HISTORY OF PRESENT ILLNESS AND HOSPITAL COURSE: An 84-year-old male with above past medical history presented to the emergency room with 6 days of worsening cough, lethargy, shortness of breath, wheezing. He had upper respiratory symptoms initially and was treating conservatively, though he continued to have cough, rhonchi, wheezing, and shortness of breath to the point where he had shortness of breath at rest and thus he decided to present to the emergency room. On arrival, vital signs were stable. He needed supplemental oxygen at 2 L to maintain saturations of 95%. He received DuoNebs with significant relief and a chest x-ray was done, which showed a right middle lobe infiltrate concerning for community- acquired pneumonia and the hospitalist team was asked to admit the patient for community-acquired pneumonia in a patient with a CURB- 65 Score greater than 2. His hospital course by problem is as follows: 1. Community-acquired pneumonia: The patient was weaned off oxygen, was started on ceftriaxone and azithromycin. Strep pneumo and legionella were negative. The patient did very well with treatment and by hospital day 2 was fully off oxygen and able to ambulate without shortness of breath, fatigue, or lethargy. White blood cell count was initially leukopenic at 3.1 and improved to 7.3 by 06/01/19. He got supportive care with benzonatate, DuoNebs for mild wheezing, was not started on prednisone. He has no documented history of COPD and is not on inhaler management at home. 2. Hypertension: The patient has mild hypertension and has been off and on hydrochlorothiazide. It was resumed in the course of this hospitalization stay at 12.5 mg and given persistent hypertension to the 160s to 150s, he was discharged on hydrochlorothiazide and lisinopril and this can be continued or discontinued at primary care provider's discretion. 3. Diabetes with resultant neuropathy, on pregabalin. Home medications were continued. 4. BPH: Home medications were continued. 5. CAD: The patient is already optimized on aspirin, not on statin and his home aspirin was continued. He had no associated chest pain during this hospitalization. On the day of discharge, the patient is ambulating, tolerating diet, voiding freely with minimal cough and right lung findings clearing considerably. He is cleared by PT and stable to return to home with his partner with whom he lives. LABS AND STUDIES DONE DURING THIS HOSPITALIZATION: Labs on the day of discharge : White blood cell count of 7.3, hemoglobin 13.3, hematocrit 39, platelets 149. Sodium 139, potassium 3.9, chloride 105, carbon dioxide 29, anion gap 5, BUN 22 , creatinine 0.74, and glucose 76. Influenza A and B was negative. Urinalysis was unremarkable and Strep pneumo and legionella antigen were negative. Chest x-ray was done that showed a right middle lobe infiltrate. On 05/30/19, EKG was done and showed normal sinus rhythm, no acute signs of ischemic changes. CONSULTS DURING THIS HOSPITALIZATION: None. ITEMS TO FOLLOWUP ON STATUS POST DISCHARGE: 1. Community-acquired pneumonia. The patient did well with routine therapy, would be sent home on Augmentin and azithromycin and is counseled on when to return to emergency room if worsening fever, cough, or shortness. There is this question of whether he has underlying reactive airway disease, COPD, or asthma. He briefly got DuoNebs on hospital day 1 as he had some bronchospasm on admission, though I am unclear if he has a true diagnosis of COPD. He is not on home inhalers. You could consider PFTs when he is well. 2. Thrombocytopenia, mild. The patient had mild thrombocytopenia here at 149 and 128. Could follow as an outpatient. No other concerning findings that would be the cause of this. 3. Hypertension: Hydrochlorothiazide was added during this hospitalization. Can be removed at discretion of primary care. TIME SPENT: Forty minutes was spent on the planning of this discharge with over half of that was spent directly at the bedside of the patient providing direct patient care. Plan of care was discussed with the patient and his partner, who have no further questions. [id number] #: [id number] MTDD
[2019-06-01 14:50] VITALS: BP 150/75
== END 2019-06-01 16:15 | disposition home or self-care (01) | DRG 194 ==
LOC: ED 13:30 → MED 17:27
PROVIDERS: ADMIT Internal Medicine; ATTEND Internal Medicine
DX: J18.9 Pneumonia, unspecified organism (principal); I50.22 Chronic systolic (congestive) heart failure; I25.10 Atherosclerotic heart disease of native coronary artery without angina pectoris; I11.0 Hypertensive heart disease with heart failure; N40.0 Benign prostatic hyperplasia without lower urinary tract symptoms; N31.9 Neuromuscular dysfunction of bladder, unspecified; M19.90 Unspecified osteoarthritis, unspecified site; M48.00 Spinal stenosis, site unspecified; E11.40 Type 2 diabetes mellitus with diabetic neuropathy, unspecified; G47.33 Obstructive sleep apnea (adult) (pediatric); D69.6 Thrombocytopenia, unspecified; D72.819 Decreased white blood cell count, unspecified; J40 Bronchitis, not specified as acute or chronic; Z95.5 Presence of coronary angioplasty implant and graft; Z95.1 Presence of aortocoronary bypass graft; Z87.891 Personal history of nicotine dependence; Z79.82 Long term (current) use of aspirin; Z79.899 Other long term (current) drug therapy
CPT/HCPCS: 36415; 71046; 80048; 80053; 81003; 82550; 82553; 83036; 83605; 83880; 84484; 85025; 85730; 86140; 87040; 87899; 93005; 94640; 96374; 99284; A9270-GY; J0456; J0696; J1650; J2930